=== PATIENT | female | born 1950 | race Caucasian/White ===

== ENCOUNTER 2018-07-08 03:06 | Outpatient (CLI) | payer MEDICARE, BC, SELFPAY ==
[2018-07-08 11:32] LABS: TSH (W/Ref FT4) 0.32 uIU/mL (0.358-3.74)
== END 2018-07-08 03:26 ==
DX: E03.9 Hypothyroidism, unspecified (principal)
CPT/HCPCS: 36415; 84439; 84443

== ENCOUNTER 2018-11-24 01:08 | Outpatient (CLI) | payer MEDICARE, BC, SELFPAY ==
--- NOTE | 2018-11-24 07:30 | DI.MAMMO_ITS ---
SYMPTOM/DIAGNOSIS: BREAST CANCER SCREENING, Z12.31 BILATERAL SCREENING MAMMOGRAM: Mammograms were interpreted according to the usual protocol including computer analysis with CAD system, tomosynthesis and C view imaging. Comparison is made with exams from 2009 through 2017. The breasts are composed of fatty density tissue, breast density category A. No suspicious masses or suspicious microcalcifications are seen. There has been no significant change. IMPRESSION: Category 1-A, negative mammogram. Yearly screening mammography is recommended. [facility] ASSESSMENT OF FINDINGS: Negative. Category 1. Patient will receive a letter notifying them of these results. BI-RAD category A. The breasts are almost entirely fatty.
== END 2018-11-24 01:28 ==
DX: Z12.31 Encounter for screening mammogram for malignant neoplasm of breast (principal)
CPT/HCPCS: 77063; 77067

== ENCOUNTER 2018-12-13 02:54 | Outpatient (CLI) | payer MEDICARE, BC, SELFPAY ==
[2018-12-13 12:25] LABS: ALT 42 U/L (12-78); AST 24 U/L (15-37); Alkaline Phosphatase 103 U/L (46-116); Anion Gap 7.2 mmol/L (3-11); BUN 16 mg/dL (7-18); Bilirubin, Total 0.6 mg/dL (0.2-1.0); CO2 31.8 mmol/L (21.0-32.0); CREATININE 0.95 mg/dL (0.55-1.02); Calcium 9.7 mg/dL (8.5-10.1); Chloride 103 mmol/L (98-107); Estimated GFR 58.85 (mL/min/1.73m2); Glucose 104 mg/dL (70-100); Potassium 4.4 mmol/L (3.5-5.1); Sodium 142 mmol/L (136-145); TSH (W/Ref FT4) 2.03 uIU/mL (0.358-3.74); Total Protein 6.8 g/dL (6.4-8.2)
== END 2018-12-13 03:14 ==
DX: E03.9 Hypothyroidism, unspecified (principal); K21.9 Gastro-esophageal reflux disease without esophagitis; F32.9 Major depressive disorder, single episode, unspecified; R29.818 Other symptoms and signs involving the nervous system; E53.8 Deficiency of other specified B group vitamins; H91.90 Unspecified hearing loss, unspecified ear; Q76.1 Klippel-Feil syndrome; G47.00 Insomnia, unspecified
CPT/HCPCS: 36415; 80053; 84443

== ENCOUNTER 2019-12-16 08:18 | Outpatient (CLI) | payer MEDICARE, BC, SELFPAY ==
[2019-12-16 11:14] LABS: ALT 36 U/L (14-59); AST 23 U/L (15-37); Albumin 3.9 g/dL (3.4-5.0); Alkaline Phosphatase 101 U/L (46-116); Anion Gap 9.4 mmol/L (3-11); BUN 14 mg/dL (7-18); Bilirubin, Total 0.7 mg/dL (0.2-1.0); CO2 29.6 mmol/L (21.0-32.0); CREATININE 0.94 mg/dL (0.55-1.02); Calcium 8.8 mg/dL (8.5-10.1); Calculated LDL 134 mg/dL (<100); Chloride 105 mmol/L (98-107); Cholesterol 203 mg/dL (<200); Glucose 111 mg/dL (74-106); HDL Cholesterol 52 mg/dL (40-60); Potassium 4.3 mmol/L (3.5-5.1); Sodium 144 mmol/L (136-145); TSH (W/Ref FT4) 4.19 uIU/mL (0.36-3.74); Total Protein 6.5 g/dL (6.4-8.2); Triglyceride 86 mg/dL (<150)
[2019-12-16 11:33] LABS: FREE T4 1.33 ng/dL (0.76-1.46)
== END 2019-12-16 08:38 ==
DX: I10 Essential (primary) hypertension (principal); E03.9 Hypothyroidism, unspecified; F32.9 Major depressive disorder, single episode, unspecified; K21.9 Gastro-esophageal reflux disease without esophagitis; K90.0 Celiac disease; R63.8 Other symptoms and signs concerning food and fluid intake
CPT/HCPCS: 36415; 80053; 80061; 84439; 84443

== ENCOUNTER → 2020-05-25 08:23 | Outpatient (BNVA) | payer MEDICARE, BC, SELFPAY | PROVIDERS: Visit Provider Physical Therapy Assistant | DX: Z12.11 Encounter for screening for malignant neoplasm of colon (principal); Z80.0 Family history of malignant neoplasm of digestive organs ==

== ENCOUNTER 2020-09-11 09:10 | Outpatient (CLI) | payer MEDICARE, BC, SELFPAY ==
[2020-09-15 16:08] LABS: Patient Race White; SARS-CoV-2 RNA Undetected (Undetected); SARS-CoV-2 Specimen Source Nasal
== END 2020-09-11 09:30 ==
DX: Z20.828 Contact with and (suspected) exposure to other viral communicable diseases (principal)
CPT/HCPCS: U0003

== ENCOUNTER 2021-02-01 03:59 | Outpatient (CLI) | payer MEDICARE, BC, SELFPAY ==
--- NOTE | 2021-02-01 06:45 | DI.MAMMO_ITS ---
EXAM: MG MAMMO SCREENING CLINICAL HISTORY: screening,Z12.39 TECHNIQUE: Mammograms were interpreted according to the usual protocol including computer analysis w [email or web address] system, tomosynthesis and C-view imaging. COMPARISON: FINDINGS: The breasts are of moderate density with fairly symmetrical distribution of fibroglandular tissue. N o dominant mass or clumped microcalcification is identified in either breast. The current examinatio n is compared with previous examinations including November 2018 and there has been no gross interval change in appearance in comparison with the prior studies. IMPRESSION: No specific evidence of malignancy at this time. Routine screening examinations are suggested at yea rly intervals in this age group according to the ACS ACR guidelines. BI-RADS Category 1 - Negative Breast Density - Category B - Scattered areas of fibroglandular density
== END 2021-02-01 04:19 ==
DX: Z12.31 Encounter for screening mammogram for malignant neoplasm of breast (principal)
CPT/HCPCS: 77063; 77067

== ENCOUNTER 2021-05-30 12:58 | Outpatient (REF) | payer MEDICARE, BC, SELFPAY ==
--- NOTE | 2021-05-30 08:15 | PAPFT_PTH ---
PATIENT: Sandrita San LOC: [facility] U#:[id number] AGE/SX: 70/F ROOM: RE05/30/[address]: Caitlyn Sierra APRN : 1950 BED: DIS: 05/30/2021 SPEC #: [id number] RECD: 05/30/21 13:02 STATUS: WILLIE ASIF #: [id number] VERÓNICA: 05/30/21 08:[address]: Caitlyn Sierra DEPT: [facility] Cytology RECD BY: Micheline Vuong Tissues: 1 - CX/ENDOCX FOR PAP SMEARS Procedures: PAP THIN PREP/UVM Screening HPV DNA PROBE Comments: [id number]
== END 2021-05-30 12:59 | disposition home or self-care (01) ==
LOC: LBN 12:58
DX: Z12.4 Encounter for screening for malignant neoplasm of cervix (principal); Z11.51 Encounter for screening for human papillomavirus (HPV); Z01.419 Encounter for gynecological examination (general) (routine) without abnormal findings
CPT/HCPCS: 88142; 87624

== ENCOUNTER 2021-08-07 02:38 | Outpatient (CLI) | payer MEDICARE, BC, SELFPAY ==
[2021-08-07 12:16] LABS: HCT 41.2 % (36.0-46.0); HGB 13.8 g/dL (11.2-15.7); MCH 31.8 pg (27.0-33.0); MCHC 33.5 % (32.0-36.0); MCV 94.9 fL (80-95); MPV 10.4 fL (8.0-11.0); Platelet Count 204 10^3/uL (130-400); RBC 4.34 10^6/uL (3.93-5.22); RDW 12.1 % (11.7-14.6); RDW-SD 42.2 fL; WBC 5.19 10^3/uL (4.4-10.8)
[2021-08-07 12:34] LABS: ALT 48 U/L (14-59); AST 23 U/L (15-37); Albumin 4.2 g/dL (3.4-5.0); Alkaline Phosphatase 94 U/L (46-116); Anion Gap 6.1 mmol/L (3-11); BUN 18 mg/dL (7-18); Bilirubin, Total 0.7 mg/dL (0.2-1.0); CO2 29.9 mmol/L (21.0-32.0); Calcium 9.1 mg/dL (8.5-10.1); Chloride 106 mmol/L (98-107); Estimated GFR 55.14 (mL/min/1.73m2); Glucose 101 mg/dL (74-106); Potassium 4.4 mmol/L (3.5-5.1); Sodium 142 mmol/L (136-145); TSH (W/Ref FT4) 6.09 uIU/mL (0.36-3.74); Total Protein 6.9 g/dL (6.4-8.2)
[2021-08-07 12:52] LABS: FREE T4 1.08 ng/dL (0.76-1.46)
== END 2021-08-07 02:39 | disposition home or self-care (01) ==
LOC: LOS 02:38
DX: D50.9 Iron deficiency anemia, unspecified (principal); E03.9 Hypothyroidism, unspecified; G47.00 Insomnia, unspecified
CPT/HCPCS: 36415; 80053; 85027; 84439; 84443

== ENCOUNTER → 2022-05-19 00:04 | Outpatient (CLI) | payer MEDICARE, BC, SELFPAY ==
--- OUTSIDE RECORDS SUMMARY | 2022-05-19 00:13 | XMS_ITS | Encounter Summary ---
:1950 Author Organization [facility] [place] [address] Care Team Providers Name Role Phone Caitlyn Sierra APRN Primary Care Provider Reason for Visit Reason Comments Follow-up Encounter Details Date Type Department Care Team Description 07/29/2019 Office Visit Gynecology Oncology Angelica Joaquin Ova malgorzata low malignant at [facility] Soto potential tumor [facility] [address] [place], [place] [phone] Social History Tobacco Use Types Packs/Day Years Used Date Never Smoker Smokeless Tobacco: Never Used Alcohol Use Standard Drinks/Week Comments Yes 0 (1 standard drink = 0.6 oz pure alcoho l) rarely Alcohol Habits Answer Date Recorded How often do you have a drink containing alcohol? Not asked How many drinks containing alcohol do you have on a typical Not asked day when you are drinking? How often do you have six or more drinks on one occasion? No t asked Comment: rarely 02/20/2015 Sex Assigned at Date Recorded Not on file documented as of this encounter Last Filed Vital Signs Vital Sign Reading Time Taken Comments Blood Pressure 118/70 07/29/2019 11:40 AM EDT Pulse 67 07/29/2019 11:40 AM EDT Temperature - - Respiratory Rate 16 07/29/2019 11:40 AM EDT Oxygen Saturation 98% 07/29/2019 11:40 AM EDT Inhaled Oxygen Concentration - - Weight 79.9 kg (176 lb 2.4 oz) 07/29/2019 11:40 AM EDT Height 144.8 cm (4' 9.01) 07/29/2019 11:40 AM EDT Body Mass Index 38.11 07/29/2019 11:40 AM EDT documented in this encounter Progress Notes Angelica Joaquin, TRAUMA NURSE - 07/29/2019 11:30 AM EDT Division [place] [address] Reason For Visit: Post Treatment Surveillance Exam History of Present Illness: Sandrita San is a 65 y.o. woman who presents today for surveillance exam. 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 Jerez on 01/2015. Cervix and uterus were not removed. Pap and HR HPV 11/2016 were negative/normal. Pap testing in no longer indicated. Interim Health: Notes her pelvis aches when she goes from a sitting to standing position or when shestands for too long. Not sure if it is bone or muscle. Initially noticed it when she was getting in and out of the kayak. Reports once she starts moving/walking it will resolve. She does not have any abdominal or pelvic pain. Otherwise no new medical issues, surgeries or hospitalizations. ROS: Bowel function- Daily BM. Always a struggle to manage d/t celiac and other food sensitivities. Bloating and gas off/on r/t bowel function/celiac disease, no changes Bladder function: very occasionally she will notice a decrease sense of urge, but overall initiatingand emptying fine. No frequency, urgency or dysuria Rare incontinence. Energy level: Ok overall. No Vaginal bleeding or discharge Long hx of L ankle edema- wearing compression stockings, which does help. ?? Weight is up 5 lbs Appetite is good No SOB, cough or chest pain Sexual function: No changes or concerns. No longer sexually active, d/t 's medical issues. ?? Advanced directives- Sandrita does have a copy at home. Health Habits: Tobacco: nonsmoker Occasional social ETOH. Exercise: walking, [employer], hoping to start a senior exercise class Health screening: Mammogram up to date, 11/2018. 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 ?? Patient Active Problem List?? Diagnosis?? Code? Vitamin B 12 deficiency?? E53.8? Facial droop?? R29.810? Rosacea?? L71.9? Hypothyroidism?? E03.9? Celiac disease?? K90.0? Hearing loss?? H91.90? Depression?? F32.9? 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 Heart murmur?? R01.1? DIFFICULT AIRWAY?? T88.4XXA? 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 Past Surgical History Past Surgical History?? Procedure?? Laterality?? Date? Carpal tunnel release?? left wrist? section?? 1983? Tonsillectomy? Finger trigger release? Cochlear implant? Cochlear implant?? Right?? 1995?? umbrella prosthesis from the oval window to the tympanic membrane and precludes MRI? Knee arthroscopy?? Right? Adenoidectomy? Pro lap, rmv adnexal structure?? N/A?? 02/23/2015?? LAPAROSCOPY, REMOVAL OF ADNEXA performed by Doretha Jerez MD at [facility] OR? Pro removal of ovary/tube(s)?? Bilateral?? 02/23/2015?? @SALPINGO-OOPHORECTOMY, UNILATERAL OR LUZMARIA performed by Doretha Jerez MD at [facility] OR? Pro laryngoscopy, direct, dx, op microscop?? N/A?? 02/23/2015?? LARYNGOSCOPY, WITH MICROSCOPE performed by Thomas Khoury MD at [facility] OR?? Allergies?? Allergen?? Reactions? Amoxicillin-Pot Clavulanate?? Diarrhea? Aspirin?? Abdominal pain? Gluten?? Diarrhea and Rash? Ibuprofen?? Other (See Comments)?? Abdominal pain?? Current Outpatient Prescriptions on File Prior to Visit?? Medication?? Sig?? Dispense?? Refill? omeprazole (PRILOSEC) 40 mg Capsule, Delayed Release(E.C.)?? Take 1 capsule by mouth daily.? levothyroxine (SYNTHROID) 150 mcg Tablet?? Take 150 mcg by mouth as needed. Thursday and Thursday? metroNIDAZOLE (METROGEL) 1 % Gel?? Apply topically daily.? pyridoxine (B-6) 100 mg Tablet?? Take 100 mg by mouth daily.? cyanocobalamin 1,000 mcg Tablet?? Take 1,000 mcg by mouth daily.? folic acid (FOLVITE) 400 mcg Tablet?? Take 400 mcg by mouth daily.? dapsone (ACZONE) 25 mg tablet?? 50mg, PO, Once daily and PRN?? No current facility-administered medications on file prior to visit. ?? Vital Signs: ?? Visit Vitals? BP?? 122/69? Pulse?? 65? Wt?? 74.6 kg (164 lb 7.4 oz)? SpO2?? 100%? BMI?? 35.93 kg/m2?? PHYSICAL EXAM: Gen: Pleasant, NAD, Alert, appears well, R facial palsy HEENT: No clavicular adenopathy or appreciable thyromegaly ?? Lungs: clear to auscultation Cor: heart RRR with systolic murmur Abdomen: soft, non- distended, non-tender, no appreciable masses or inguinal adenopathy Pelvic exam: atrophic external female genitalia; vulva, urethral meatus, and perineum are without lesions. Speculum exam: Vagina and cervix with atrophic changes, no visible lesions. Bimanual exam: exam is limited secondary to body habitus, no appreciable uterine or pelvic masses, nodularity or tenderness. Adnexae surgically absent. Rectovaginal exam: No appreciable masses or tenderness. ASSESSMENT/PLAN: Sandrita San is a 65 y.o. 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 She has no evidence of recurrent disease. We reviewed signs and symptoms of recurrent disease. Musculoskeletal pain: unlikely this represents recurrent cancer, recommended that she f/u with her PCP, consider physical therapy and weight loss. She will RTC per SGO guidelines q 6 months. She will RTC sooner prn with questions/concerns. Angelica Joaquin APRN documented in this encounter Plan of Treatment Not on filedocumented as of this encounter Visit Diagnoses Diagnosis Ovarian low malignant potential tumor Neoplasm of unspecified nature of other genitourinary organs documented in this encounter Care Teams Spare Person Relationship Specialty Start Date End Date Caitlyn Sierra APRN PCP - General Family Medicine 07/20/[address] [place] [address] documented as of this encounter
--- OUTSIDE RECORDS SUMMARY | 2022-05-19 00:13 | XMS_ITS | Clinical Summary ---
:1950 Author Organization [facility] [place] [address] Care Team Providers Name Role Phone Caitlyn Sierra APRN Primary Care Provider Allergies Active Allergy Reactions Severity Noted Date Comments Amoxicillin-Pot Clavulanate Diarrhea Aspirin Abdominal pain Gluten Diarrhea, Rash 01/25/2015 Ibuprofen Other (See Comments) Abdomin al pain Medications Medication Sig Dispensed Refills Start Date End Date Status dapsone (ACZONE) 25 mg 50mg, PO, Once 0 09/02/2006 Active tablet daily and PRN metroNIDAZOLE Apply topically 0 Active (METROGEL) 1 % Gel daily. pyridoxine (B-6) 100 mg Take 100 mg by 0 Active Tablet mouth daily. cyanocobalamin 1,000 Take 1,000 mcg by 0 Active mcg Tablet mouth daily. folic acid (FOLVITE) Take 400 mcg by 0 Active 400 mcg Tablet mouth daily. levothyroxine Take 137 mcg by 2 04/08/2017 Active (SYNTHROID) 137 mcg mouth daily. Tablet omeprazole (PRILOSEC) TAKE ONE CAPSULE 3 12/21/2018 Active 20 mg Capsule, Delayed BY MOUTH EVERY Release(E.C.) DAY Active Problems Problem Noted Date Ovarian low malignant potential tumor 09/07/2015 DIFFICULT AIRWAY 02/06/2015 Overview: Unable to mask ventilate with one or two hands, even with an oral airway. Able to ventilate with Air-q(brand) LMA 3.5 or Unique (brand) LMA 3, but unable to pass tube over fiber-optic scope. Grade 4 vie w with glidescope (video laryngoscope). Poor view (grade 4) with fiber optic bronchoscope without manipulation/angling of FOB tip under epiglottis. Glottic opening is narrow and mouth opening is small. Consider spinal anesthetic when appropri ate, awake intubation or ENT consult for intubation. 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 Heart murmur Overview: reports a normal ECHO Immunizations Name Administration Dates Next Due Td, adult 06/02/1999 Family History Medical History Relation Comments Coronary Artery Disease Brother 1 Hyperlipidemia Brother 2 Depression Brother 3 Coronary Artery Disease Father Depression Father Hyperlipidemia Father Hypertension Father Colorectal Cancer Mother Depression Mother Depression Sister Allergies Neg Hx Anesthesia Reaction Neg Hx Asthma Neg Hx Breast Cancer Neg Hx Cerebrovascular Accident Neg Hx Osteoporosis Neg Hx Ovarian Cancer Neg Hx Thyroid Disease Neg Hx Type 2 Diabetes Neg Hx Relation Status Comments Brother 1 Brother 2 Brother 3 Father Mother Sister Social History Tobacco Use Types Packs/Day Years [...] Assigned at Date Recorded Not on file Last Filed Vital Signs Vital Sign Reading Time Taken Comments Blood Pressure 118/70 07/29/2019 11:40 AM EDT Pulse 67 07/29/2019 11:40 AM EDT Temperature 36.6 ??C (97.8 ??F) 01/26/2019 2:46 PM EDT Respiratory Rate 16 07/29/2019 11:40 AM EDT Oxygen Saturation 98% 07/29/2019 11:40 AM EDT Inhaled Oxygen Concentration - - Weight 79.9 kg (176 lb 2.4 oz) 07/29/2019 11:40 AM EDT Height 144.8 cm (4' 9.01) 07/29/2019 11:40 AM EDT Body Mass Index 38.11 07/29/2019 11:40 AM EDT Plan of Treatment Health Maintenance Due Date Last Done Comments Covid-19 Vaccine (#1) 1957 Hepatitis C Screening 1970 Lipid Screening 1970 Tdap adult 1971 Breast Cancer Share Decision Needed 1992 Diabetes Screening (HgbA1C or Glucose) 1992 Colonoscopy 1997 Breast Cancer screening 2002 Zoster vaccine (1 of 2) 2002 Advance Directive 2007 Tetanus vaccine 06/02/2009 06/02/1999 Bone Density Scan 2017 Pneumoccocal Vaccine: 65+ (1 - PCV) 2017 Influenza (Flu) vaccine (1 of 1 - Influenza standard 07/03/2022 series) Insurance Payer Benefit Plan / Subscriber ID Effective Phone Address T ype Group Dates MEDICARE MEDICARE PART [id number] 2017-Prese [phone] [place] [address] [employer] [id number] 2018-Prese [address] [place] [address] [place] [address] Advance Directives Latest Code Status on File Code Status Date Activated Date Inactivated Comments Full Code 02/23/2015 10:44 AM 02/23/2015 6:36 PM Full Code 02/23/2015 7:45 AM 02/23/2015 10:44 AM Full Code 02/06/2015 8:50 AM 02/06/2015 2:54 PM Care Teams Wildlife Conservation Officer Relationship Specialty Start Date End Date Caitlyn Sierra, SECURITY OPERATIONS ENGINEER PCP - General Family Medicine 07/20/[address] [place] [address]
--- OUTSIDE RECORDS SUMMARY | 2022-05-19 00:13 | XMS_ITS | Encounter Summary ---
:1950 Author Organization [facility] [place] [address] Care Team Providers Name Role Phone Sarita Valencia MD Primary Care Provider Encounter Details Date Type Department Care Team Description 08/10/2015 External Results [place] [address] Social History Tobacco Use Types Packs/Day Years [...] on file documented as of this encounter Plan of Treatment Not on filedocumented as of this encounter Visit Diagnoses Not on filedocumented in this encounter Care Teams Cotton Factor Relationship Specialty Start Date End Date Sarita Valencia MD PCP - General 09/24/10 07/19/18 [address] [place], [place] [address] documented as of this encounter
--- OUTSIDE RECORDS SUMMARY | 2022-05-19 00:13 | XMS_ITS | Encounter Summary ---
:1950 Author Organization [facility] [place] [address] Care Team Providers Name Role Phone Sarita Valencia MD Primary Care Provider Reason for Visit Reason Comments Follow-up Encounter Details Date Type Department Care Team Description 03/25/2016 Office Visit Gynecology Oncology Angelica Joaquin Ova malgorzata low malignant at [facility] M, STONE CARRIAGE OPERATOR potential tumor [facility] [address] [place], [place] [phone] [phone] Social History Tobacco Use Types Packs/Day Years [...] Sign Reading Time Taken Comments Blood Pressure 122/69 03/25/2016 8:12 AM EDT Pulse 65 03/25/2016 8:12 AM EDT Temperature - - Respiratory Rate - - Oxygen Saturation 100% 03/25/2016 8:12 AM EDT Inhaled Oxygen Concentration - - Weight 74.6 kg (164 lb 7.4 oz) 03/25/2016 8:12 AM EDT Height - - Body Mass Index 35.93 02/23/2015 7:33 AM EDT documented in this encounter Progress Notes Angelica Joaquin, STONE CARRIAGE OPERATOR - 03/25/2016 9:06 AM EDT Division of [place] [address] Reason For Visit: Post Treatment Surveillance Exam History of Present Illness: Sandrita San is a 65 y.o. woman who presents today for surveillance exam. 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 Jerez on 01/2015. Interim Health: Feeling fine. No new medical issues, surgeries or hospitalizations. She does note some changes in bowel function-BM can vary d/t celiac disease. BM are daily, though lately have been tending more toward constipation. No abdominal or pelvic pain. Occasional bloating r/t celiac disease. ROS: No Fever, chills, nausea, vomiting, diarrhea No bladder concerns or changes. Energy level: stable, tires more easily No Vaginal bleeding or discharge Long hx of L ankle edema, worse with weather and sitting, typically improves with elevation. ?? Weight is up a few pounds. Reports appetite is ok No SOB, cough or chest pain Sexual function: No changes or concerns. No longer sexually active, d/t 's medical issues. ?? Mood is good. Health Habits: Tobacco: nonsmoker ETOH: Occasional social Exercise: tries to walk 2-3 days a week typically 20-30 minutes Health Maintenance: Mammogram: Done locally 09/05/15. Colonoscopy: 12/2014, repeat 3 years Social History: Lives with her , he is doing better. 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 ?? Patient Active Problem List?? Diagnosis?? Code? Vitamin B 12 deficiency?? E53.8? Facial droop?? R29.810? Rosacea?? L71.9? Hypothyroidism?? E03.9? Celiac disease?? K90.0? Hearing loss?? H91.90? Depression?? F32.9? 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 Heart murmur?? R01.1? DIFFICULT AIRWAY?? T88.4XXA? 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 Past Surgical History Past Surgical History?? Procedure?? Laterality?? Date? Carpal tunnel release?? left wrist? section?? 1984? Tonsillectomy? Finger trigger release? Cochlear implant? Cochlear implant?? Right?? 1995?? umbrella prosthesis from the oval window to the tympanic membrane and precludes MRI? Knee arthroscopy?? Right? Adenoidectomy? Pro lap, rmv adnexal structure?? N/A?? 02/23/2015?? LAPAROSCOPY, REMOVAL OF ADNEXA performed by Doretha Jerez MD at [facility] OR? Pro removal of ovary/tube(s)?? Bilateral?? 02/23/2015?? @SALPINGO-OOPHORECTOMY, UNILATERAL OR LUZMARIA performed by Doretha Jerez MD at [facility] OR? Pro laryngoscopy, direct, dx, op microscop?? N/A?? 02/23/2015?? LARYNGOSCOPY, WITH MICROSCOPE performed by Thomas Khoury MD at [facility] OR?? Allergies?? Allergen?? Reactions? Amoxicillin-Pot Clavulanate?? Diarrhea? [...] cervix with atrophic changes, no visible lesions. Bimanual/rectovaginal exam: No appreciable uterine or pelvic masses, nodularity or tenderness. Adnexae surgically absent. Rectovaginal exam: good tone, no appreciable masses or tenderness. ASSESSMENT/PLAN: Sandrita San is a 65 y.o. 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 She has no evidence of recurrent disease. We reviewed signs and symptoms of recurrent disease. She will RTC in 6 months, sooner prn with questions/concerns. Constipation: Encouraged increase fiber, hydration and activity. ?? Angelica Joaquin APRN documented in this encounter Plan of Treatment Not on filedocumented as of this encounter Visit Diagnoses Diagnosis Ovarian low malignant potential tumor Neoplasm of unspecified nature of other genitourinary organs documented in this encounter Care Teams Contact Center Manager Relationship Specialty Start Date End Date Sarita Valencia MD PCP - General 09/24/10 07/19/18 [address] [place] [address] documented as of this encounter
--- OUTSIDE RECORDS SUMMARY | 2022-05-19 00:13 | XMS_ITS | Encounter Summary ---
:1950 Author Organization [facility] [place] [address] Care Team Providers Name Role Phone Caitlyn Sierra APRN Primary Care Provider Encounter Details Date Type Department Care Team Description 03/02/2020 Telephone Gynecology Oncology at [facility] Angelica Joaquin, [facility] [place] [address] [facility] [phone] [place], [place] [address] (Wo rk) Social History Tobacco Use Types Packs/Day Years [...] on file documented as of this encounter Miscellaneous Notes Telephone Encounter - Angelica Joaquin APRN - 03/02/2020 10:15 AM EDT TC to patient to notifiy that I will be leaving PRECISION MACHINIST/ONC and to discuss transition of care. 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 Jerez on 01/2015. Cervix and uterus were not removed Sandrita is approaching the 5 year don of her cancer dx, she would like to have one last visit with Dr. Jerez before transitioning to local [facility]. Will plan to f/u when non-emergent/non-urgent visits can be re- scheduled. She understands that she should call/RTC if she has any urgent is sues/concerns. Angelica Joaquin APRN documented in this encounter Plan of Treatment Not on filedocumented as of this encounter Visit Diagnoses Not on filedocumented in this encounter Care Teams Traveling Construction Superintendent Relationship Specialty Start Date End Date Caitlyn Sierra APRN PCP - General Family Medicine 07/20/[address] [place] [address] [address] [place] [address] documented as of this encounter
--- OUTSIDE RECORDS SUMMARY | 2022-05-19 00:13 | XMS_ITS | Encounter Summary ---
:1950 Author Organization [facility] [place] [address] Care Team Providers Name Role Phone Caitlyn Sierra APRN Primary Care Provider Encounter Details Date Type Department Care Team Description 10/12/[address] [facility] [place] [address] Social History Tobacco Use Types Packs/Day [...] this encounter Miscellaneous Notes Telephone Encounter - Bin Oropeza - 10/12/2020 3:27 PM EST Placed outgoing phone call to patient in order to schedule a procedure. Phone Call Outcome: Left voicemail asking for return call. This was the 1st attempt documented in this encounter Plan of Treatment Not on filedocumented as of this encounter Visit Diagnoses Not on filedocumented in this encounter Care Teams Plate Driller Relationship Specialty Start Date End Date Caitlyn Sierra APRN PCP - General Family Medicine 07/20/[address] [place] [address] documented as of this encounter
--- OUTSIDE RECORDS SUMMARY | 2022-05-19 00:13 | XMS_ITS | Encounter Summary ---
:1950 Author Organization [facility] [place] [address] Care Team Providers Name Role Phone Caitlyn Sierra APRN Primary Care Provider Encounter Details Date Type Department Care Team Description 10/19/2020 Telephone Gastroenterology at [facility] [place] [address] Social History Tobacco Use Types Packs/Day [...] Notes Telephone Encounter - Bin Oropeza - 10/19/2020 3:11 PM EST Placed outgoing phone call to patient in order to schedule a procedure. Phone Call Outcome: Spoke with patient, who expressed concerns regarding as a system, and a previous bad experience. I directed her to speak to her PCP about these concerns to asses if it is appropriate to refer to a different system. She agreed. Will obtain new referral if she decides to come to . This was the 2nd attempt documented in this encounter Plan of Treatment Not on filedocumented as of this encounter Visit Diagnoses Not on filedocumented in this encounter Care Teams Multifocal Lens Assembler Relationship Specialty Start Date End Date Caitlyn Sierra, PROPERTY LOSS INSURANCE CLAIM ADJUSTER PCP - General Family Medicine 07/20/[address] [place] [address] documented as of this encounter
--- OUTSIDE RECORDS SUMMARY | 2022-05-19 00:13 | XMS_ITS | Encounter Summary ---
:1950 Author Organization [facility] [address] Care Team Providers Name Role Phone Caitlyn Sierra APRN Primary Care Provider Reason for Visit Reason Comments Established 6M follow up Encounter Details Date Type Department Care Team Description 01/26/2019 Office Visit Gynecology Oncology Angelica Joaquin Ova malgorzata low malignant [place] [facility] [place] potential tumor [facility] [address], [place] [phone] Social History Tobacco Use Types Packs/Day Years [...] Sign Reading Time Taken Comments Blood Pressure 116/53 01/26/2019 2:46 PM EDT Pulse 68 01/26/2019 2:46 PM EDT Temperature 36.6 ??C (97.8 ??F) 01/26/2019 2:46 PM EDT Respiratory Rate 16 01/26/2019 2:46 PM EDT Oxygen Saturation 99% 01/26/2019 2:46 PM EDT Inhaled Oxygen Concentration - - Weight 77.6 kg (171 lb) 01/26/2019 2:46 PM EDT Height 144.8 cm (4' 9) 01/26/2019 2:46 PM Patient repo rted EDT Body Mass Index 37 01/26/2019 2:46 PM EDT documented in this encounter Progress Notes Angelica Joaquin, RECYCLING TECHNICIAN - 01/26/2019 2:30 PM EDT Division [place] [address] Reason For Visit: Post Treatment Surveillance Exam [...] testing in no longer indicated. Interim Health: Feeling ok overall. Significant GERD sx recently, seen by PCP, now on omeprazole 40 mg daily, sx have improved. Otherwise no new medical issues, surgeries or hospitalizations. No CHILD & ADOLESCENT PSYCHIATRIST concerns/complaints. ROS: No Pelvic pain. Abdominal pain while her GERD was flaring, which has since improved. Bloating off/onr/t bowel function/celiac disease, no changes Bowel function- Daily BM, better. More formed. Managing celiac. Bladder function: no concern. occasional urge incontinence. Energy level: Ok overall. No Vaginal bleeding or discharge Long hx of L ankle edema- No changes. Does improve with elevation. ?? Weight is stable Reports appetite is good No SOB, cough or chest pain Sexual function: No changes or concerns. No longer sexually active, d/t 's medical issues. ?? Advanced directives- Sandrita does have a copy at home. Health Habits: Tobacco: nonsmoker Occasional social ETOH. Exercise: trying to walk more, started [employer] Health screening: Mammogram up to date, 11/2018. 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 ?? Patient Active Problem List?? Diagnosis?? Code? [...] ADNEXA performed by Doretha Jerez MD at [facility] OR? Pro removal of ovary/tube(s)?? Bilateral?? 02/23/2015?? @SALPINGO-OOPHORECTOMY, UNILATERAL OR LUZMARIA performed by Doretha Jerez MD at [facility] OR? Pro laryngoscopy, direct, dx, op microscop?? N/A?? 02/23/2015?? LARYNGOSCOPY, WITH MICROSCOPE performed by Thomas Khoury MD at [facility] OR?? Allergies?? Allergen?? Reactions? Amoxicillin-Pot Clavulanate?? Diarrhea? [...] atrophic changes, no visible lesions. Bimanual exam: No appreciable uterine or pelvic masses, nodularity or tenderness. Adnexae surgically absent. Rectovaginal exam: No appreciable masses or tenderness. ASSESSMENT/PLAN: Sandrita San is a 65 y.o. 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 She has no evidence of recurrent disease. We reviewed signs and symptoms of recurrent disease. She will RTC per SGO guidelines q 6 months. She will RTC sooner prn with questions/concerns. Angelica Joaquin APRN documented in this encounter Plan of Treatment Not on filedocumented as of this encounter Visit Diagnoses Diagnosis Ovarian low malignant potential tumor Neoplasm of unspecified nature of other genitourinary organs documented in this encounter Care Teams Plastic Process Technician Relationship Specialty Start Date End Date Caitlyn Sierra APRN PCP - General Family Medicine 07/20/[address] [place] [address] documented as of this encounter
--- OUTSIDE RECORDS SUMMARY | 2022-05-19 00:13 | XMS_ITS | Encounter Summary ---
:1950 Author Organization [facility] [place] [address] Care Team Providers Name Role Phone Sarita Valencia MD Primary Care Provider Reason for Visit Reason Comments Established 6 mth fu Encounter Details Date Type Department Care Team Description 11/26/2016 Office Visit Gynecology Oncology Angelica Joaquin Ova malgorzata low malignant [place] [facility] [place], MANAGER TRANSPORTATION potential tumor [facility] [address], [place] [phone] Social History Tobacco Use Types Packs/Day Years [...] Sign Reading Time Taken Comments Blood Pressure 133/64 11/26/2016 2:23 PM EST Pulse 70 11/26/2016 2:23 PM EST Temperature 36.8 ??C (98.2 ??F) 11/26/2016 2:23 PM EST Respiratory Rate 14 11/26/2016 2:23 PM EST Oxygen Saturation 100% 11/26/2016 2:23 PM EST Inhaled Oxygen Concentration - - Weight 74.7 kg (164 lb 10.9 oz) 11/26/2016 2:23 PM EST Height 144.8 cm (4' 9) 11/26/2016 2:23 PM EST Body Mass Index 35.64 11/26/2016 2:23 PM EST documented in this encounter Progress Notes Angelica Joaquin, LUIS - 11/26/2016 2:30 PM EST Division [place] [address] Reason For Visit: Post Treatment Surveillance Exam History of Present Illness: Sandrita San is a 65 y.o. woman who presents today for surveillance exam. 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 Jerez on 01/2015. Cervix and uterus were not removed. She is overdue for pap. Interim Health: Feeling fine. No new medical issues, surgeries or hospitalizations. No questions/concerns today. ROS: No Fever, chills, nausea, vomiting, diarrhea No Pelvic or abdominal pain. Bloating off/on r/t bowel function/celiac disease. Bowel function- Daily BM. Celiac disease is currently stable. No bladder concerns or changes. Energy level tires more easily. Morning is better. She is sleeping better. Though considering sleep study and CPAP for her apnea. No Vaginal bleeding or discharge Long hx of L ankle edema, better in the winter. Improves with elevation. ?? Weight is stable Reports appetite is ok No SOB, cough or chest pain Sexual function: No changes or concerns. No longer sexually active, d/t 's medical issues. ?? Mood is good. Advanced directives- Sandrita does have a copy at home, she will bring a copy with her at the time of her next appointment. Health Habits: Tobacco: nonsmoker Occasional social ETOH. Exercise: nothing formal lately due to weather. Health Maintenance: Mammogram: Done locally 09/2015, overdue will plan to schedule. Colonoscopy: 12/2014, repeat 3 years Social History: Lives with her , he has bi-polar d/o and has been stable. 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 ?? Patient Active Problem [...] performed by Doretha Jerez MD at [facility] OR? Pro removal of ovary/tube(s)?? Bilateral?? 02/23/2015?? @SALPINGO-OOPHORECTOMY, UNILATERAL OR LUZMARIA performed by Doretha Jerez MD at [facility] OR? Pro laryngoscopy, direct, dx, op microscop?? N/A?? 02/23/2015?? LARYNGOSCOPY, WITH MICROSCOPE performed by Thomas Khoury MD at [facility] OR?? Allergies?? Allergen?? Reactions? Amoxicillin-Pot Clavulanate?? [...] NAD, Alert, appears well, R facial palsy (which occurred as a result of ear surgery) HEENT: No clavicular adenopathy or appreciable thyromegaly ?? Lungs: clear to auscultation Cor: heart RRR with systolic murmur Abdomen: soft, non- distended, non-tender, no appreciable masses or inguinal adenopathy Pelvic exam: atrophic external female genitalia; vulva, urethral meatus, and perineum are without lesions. Speculum exam: Vagina and cervix with atrophic changes, no visible lesions. Pap collected. Bimanual exam: No appreciable uterine or pelvic masses, nodularity or tenderness. Adnexae surgically absent. Rectovaginal exam: no appreciable masses or tenderness. ASSESSMENT/PLAN: Sandrita San is a 65 y.o. 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 She has no evidence of recurrent disease. We reviewed signs and symptoms of recurrent disease. Reviewed pap guidelines. Pap/HPV testing done today, pending normal/negative, she will no longerneed further pap testing. Discussed with Dr. Jerez who recommended q 6 month visits until she is 4yrs post treatment and then annually thereafter. She will RTC in 6 months, sooner prn with questions/concerns. Angelica Joaquin APRN documented in this encounter Plan of Treatment Not on filedocumented as of this encounter Procedures Procedure Name Priority Date/Time Associated Comments Diagnosis HPV Routine 11/26/2016 3:41 PM Results f or this EST procedure are i n the results section. RN CLINICAL RESEARCH CYTOLOGY Routine 11/26/2016 3:41 PM Results f or this INTERPRETATION EST procedure are in the results section. RN CLINICAL RESEARCH CYTOLOGY FINAL Routine 11/26/2016 3:41 PM Res ults for this REPORT EST procedure are i n the results section. CYTOPATHOLOGY Routine 11/26/2016 3:41 PM Ovarian low Results for this GYNECOLOGICAL EST malignant procedure are in potential tumor the results section. documented in this encounter Results Junior Web Designer Cytology Final Report (11/26/2016 3:41 PM EST) Component Value Ref Test Analysis Performed At [facility] Range Method Time Signature Junior Web Designer Cytology [id number] ?Location: [address] [place] [address] Final Report [place] The signing pathologist has (i) examined the relevant preparation(s) for the [facility] specimen(s) and (ii) rendered or confirmed the diagnosis(es) . HOSPITAL [facility] . ? Junior Web Designer Final DIAGNOSIS Normal Negative for Intraepithelial Lesion or Malignancy (NILM). For consensus guidelines for the management of c ervical cancer screening test results, please see: ?? http://www.asccp.org/guidelines . Electronically signed by: ??Juan LYLES(ASCP), Joelle Bangura Verified: ??12/03/2016 ?Cable Strander HPV RESULTS HPV16 (Result) ?Negative HPV18 (Result) ?Negative HPVOHR (Result) ? Negative HPV (Interpretation) ?See Below HPV (Interpretation) Text: NEGATIVE for high-risk HPV *. *Testing negative for high risk HPV means that the specimen is negative for the following 14 types tested: types 16, 18, 31, 33, 35 , 39, 45, 51, 52, 56, 58, 59, 66, and 68. The test is not intended to detect low risk HPV types. Mustapha chloe HPV test Specimen: HPV Testing - Cytology Liquid Based Prep The Mustapha chloe ? HPV ariella t was validated, performed and results reported through the Laboratory for Clinical Gen omics and Advanced Technology (CGAT) at [facility]. ? - Anurag Almanza, PhD, [facility], Director-CGAT STATEMENT OF ADEQUACY Specimen submitted is satisfactory. Endocervical component present. CLINICAL INFORMATION HPV Option: ?Concurrent HPV and Pap Preparation: ? Liquid based Pap Specimen Source: ? Cervical/Endocervical LMP: ? n/a Hormones?: ? No Hysterectomy?: ? No ?: ? No ?: ? No I.U.D.?: ? No Pelvic Radiation: ?No Prior RN CLINICAL RESEARCH Therapy?: ?Surgery (comment) Hist Abnl Pap/Biopsy?: ?? No Hist of HPV Vaccine?: ?No Hist of Smoking?: ?No Hist of ANDREW exposure?: ?? No ICD Diagnosis: ? Z12.4 Encounter for screening for malignant neoplasm of cervix Clinical Data, Significant Therapy and Clinical Impression ? ? : ?_ . CLINICAL INFORMATION This Pap Test has been evalu ated with the assistance of the [employer] Brewing Company[employer] Pap Test Imaging System. Note: The Pap test is a screening test for cervical cancer with an inherent false-negative rate dependent upon several variables. ??For further information please contact the [facility] Laboratory. Reference: ??Andrey CS. ? ?Perennial House Manager of Pap Smear Results. ??In: ??Wander BS, Jose HH, ed. ??The Pap Smear. ??[place]: ??Elijah, 20 02: ??71-77. Specimen (Source) Anatomical Collection Method Collection Time Re ceived Time Location / / Volume Laterality 11/26/2016 3:41 PM EST Angelica Joaquin APRN PATHOLOGY/CYTOLOGY ORDERABLE S Performing Organization Address City/[facility]/[place] [address] RN CLINICAL RESEARCH Cytology Interpretation (11/26/2016 3:41 PM EST) [facility] Method Time Signature Junior Web Designer Cytology NILM [facility] LABORATORY Comment: Junior Web Designer Cytology Final Report Acces ayleen: [id number] Endocervical Component Present [facility] Specimen Anatomical Collection Method Collection Time Receive d Time (Source) Location / / Volume Laterality AP Specimen 11/26/2016 3:41 PM 7 EST 12:00 PM EST Angelica Joaquin APRN PATHOLOGY/CYTOLOGY ORDERABLE S Performing Organization Address City/[facility]/[place] [address] HPV (11/26/2016 3:41 PM EST) [facility] Method Time Signature HPV 16 NEGATIVE NEGATIVE [facility] HPV 18 NEGATIVE NEGATIVE [facility] HPV Other HR NEGATIVE NEGATIVE [facility] HPV See Comment [facility] LABORATORY Comment: NEGATIVE for high-risk HPV *. * Testing negative for high risk HPV ellis ns that the specimen is negative for the following 14 types tested: ??types 1 6, 18, 31, 33, 35, 39, 45, 51, 52, 56, 58, 59, 66, and 68. ??The test is not in tended to detect low risk HPV types. Mustapha Chloe HPV test Specimen: HPV Testing - Cytology Liquid Based Prep Specimen Anatomical Collection Method Collection Time Receive d Time (Source) Location / / Volume Laterality Cervical swab 11/26/2016 3:41 PM 11/26/19 17 5:17 (specimen) EST PM EST Resulting Agency Comment Spec In Lab Angelica Joaquin APRN PATHOLOGY/CYTOLOGY ORDERABLE S Performing Organization Address City/State/[place] [address] Cytopathology Gynecological (11/26/2016 3:41 PM EST) Specimen Anatomical Collection Method Collection Time Receive d Time (Source) Location / / Volume Laterality AP Specimen 11/26/2016 3:41 PM 7 3:41 EST PM EST Narrative [facility] - 11/26/2016 3:41 PM EST Specimen requisition ordered. ??Separate Pathology report to follow Doretha Jerez MD PATHOLOGY/CYTOLOGY ORDERABLE S Performing Organization Address City/State/[place] [address] documented in this encounter Visit Diagnoses Diagnosis Ovarian low malignant potential tumor Neoplasm of unspecified nature of other genitourinary organs documented in this encounter Care Teams File Machine Operator Relationship Specialty Start Date End Date Sarita Valencia MD PCP - General 09/24/10 07/19/18 [address] [place] [address] documented as of this encounter
--- OUTSIDE RECORDS SUMMARY | 2022-05-19 00:13 | XMS_ITS | Encounter Summary ---
:1950 [place] [address] Care Team Providers Name Role Phone Sarita Valencia MD Primary Care Provider Encounter Details Date Type Department Care Team Description 08/07/2015 External Results Gynecology [facility]cology [facility] [place] [phone] Social History Tobacco Use Types Packs/Day [...] encounter Procedures Procedure Name Priority Date/Time Associated Diagnosis Comme nts CANCER ANTIGEN 125 Routine 08/03/2015 Results f or this procedure are i n the results section . documented in this encounter Results (ABNORMAL) Cancer Antigen 125 (08/03/2015) P athologist Signature CA 125 <6 (External Lab) Specimen (Source) Anatomical Location Collection Method / Collectio n Time Received Time / Laterality Volume Blood specimen 08/03/2015 (specimen) Doretha Jerez MD CHEMISTRY ORDERABLES documented in this encounter Visit Diagnoses Not on filedocumented in this encounter Care Teams Manager Of Drilling Relationship Specialty Start Date End Date Sarita Valencia MD PCP - General 09/24/10 07/19/18 [address] [place] [address] documented as of this encounter
--- OUTSIDE RECORDS SUMMARY | 2022-05-19 00:13 | XMS_ITS | Encounter Summary ---
:1950 Author Organization [facility] [place] [address] Care Team Providers Name Role Phone Sarita Valencia MD Primary Care Provider Reason for Visit Reason Comments Establish Care 6 mth ck Encounter Details Date Type Department Care Team Description 05/27/2017 Office Visit Gynecology Oncology Angelica Joaquin Ova malgorzata low malignant potential tumor; at [facility] M, WHEEL ALIGNMENT MECHANIC Atrophic vulva [facility] [address] [place] [phone] Social History Tobacco Use Types Packs/Day Years [...] Sign Reading Time Taken Comments Blood Pressure 110/68 05/27/2017 1:38 PM EDT Pulse 71 05/27/2017 1:38 PM EDT Temperature 37.2 ??C (99 ??F) 05/27/2017 1:38 PM EDT Respiratory Rate 24 05/27/2017 1:38 PM EDT Oxygen Saturation 99% 05/27/2017 1:38 PM EDT Inhaled Oxygen Concentration - - Weight 75 kg (165 lb 5.5 oz) 05/27/2017 1:38 PM EDT Height - - Body Mass Index 35.78 11/26/2016 2:23 PM EST documented in this encounter Progress Notes Angelica Joaquin, WHEEL ALIGNMENT MECHANIC - 05/27/2017 1:30 PM EDT Division [place] [address] Reason For Visit: Post Treatment Surveillance Exam History of Present Illness: Sandrita San is a 65 y.o. woman who presents today for surveillance exam. 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 Jerez on 01/2015. Cervix and uterus were not removed. Pap and HR HPV 11/2016 were negative/normal. Interim Health: Feeling fine overall. She reports 1 month hx of vulvar burning, it comes and goes, can go 1 week without symptoms, then have symptoms a few times a day. Sx can be associated with wipingafter voiding, but can also occur unrelated to toileting. She has been using pantyliner, which she wonders if that could be causing the burning. No itching, bleeding or discharge. Feels better if she drinks more fluids/water. Otherwise no new medical issues, surgeries or hospitalizations. She expresses some concern re: family hx of cancer and wonders if she would be a candidate for genetic testing given her personal hx of borderline tumor and family history. FHX: Paternal aunts x 3 developed breast cancer in their 50s, father CHF/cirhosis. Mother age 49 from cancer inthe abdomen (unknown primary site). ROS: No Fever, chills, nausea, vomiting, diarrhea No Pelvic or abdominal pain. Bloating off/on r/t bowel function/celiac disease. Bowel function- Daily BM. Managing celiac, though occasional fecal staining No bladder concerns or changes. Occasional urge. No frequency. Occasion incontinence. Trying to do more kegels. Energy level tires more easily, d/t sleep apnea. No Vaginal bleeding or discharge Long hx of L ankle edema, no changes. Improves with elevation. ?? Weight is stable Reports appetite is ok No SOB, cough or chest pain Sexual function: No changes or concerns. No longer sexually active, d/t 's medical issues. ?? Mood is up Advanced directives- Sandrita does have a copy at home. She is asked to bring a copy with her at the time of her next appointment. Health Habits: Tobacco: nonsmoker Occasional social ETOH. Exercise: nothing formal, hopes to start yoga (her son has been bothering her to be more active) Health Maintenance: Mammogram: 09/2015, overdue will plan to schedule. Colonoscopy: 12/2014, repeat 3years Social History: Lives with her , he has bi-polar d/o and has not been doing well lately. 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 ?? Patient Active Problem [...] ADNEXA performed by Doretha Jerez MD at [facility] OR? Pro removal of ovary/tube(s)?? Bilateral?? 02/23/2015?? @SALPINGO-OOPHORECTOMY, UNILATERAL OR LUZMARIA performed by Doretha Jerez MD at [facility] OR? Pro laryngoscopy, direct, dx, op microscop?? N/A?? 02/23/2015?? LARYNGOSCOPY, WITH MICROSCOPE performed by Thomas Khoury MD at [facility] OR?? Allergies?? Allergen?? Reactions? Amoxicillin-Pot Clavulanate?? Diarrhea? [...] Rectovaginal exam: no appreciable masses or tenderness. Urine dip: negative ASSESSMENT/PLAN: Sandrita San is a 65 y.o. 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 She has no evidence of recurrent disease. We reviewed signs and symptoms of recurrent disease. Vulvar irritation: atrophic changes. Discussion and recommendations re: general vulvar care. Recommended avoiding always brand panty-liners. Ok to use coconut oil as barrier/moisturizer. F/u if sx worsen, could consider vaginal estrogen cream if sx worsen/fail to improve. Genetic counseling: based on personal hx of borderline tumor, genetic testing is not typically recommended. She is given hand out re: familial cancer program and encouraged to call to see if she would be a candidate for testing based on her family history. She will RTC in 6 months, sooner prn with questions/concerns. Angelica Joaquin APRN documented in this encounter Plan of Treatment Not on filedocumented as of this encounter Visit Diagnoses Diagnosis Ovarian low malignant potential tumor Neoplasm of unspecified nature of other genitourinary organs Atrophic vulva Atrophy of vulva documented in this encounter Care Teams Market Superintendent Relationship Specialty Start Date End Date Sarita Valencia MD PCP - General 09/24/10 07/19/18 [address] [place] [address] documented as of this encounter
--- OUTSIDE RECORDS SUMMARY | 2022-05-19 00:13 | XMS_ITS | Encounter Summary ---
:1950 Author Organization [facility] [place] [address] Care Team Providers Name Role Phone Caitlyn Sierra APRN Primary Care Provider Encounter Details Date Type Department Care Team Description 03/19/2020 TH Visit Gynecology Oncology Nat Harrell an low malignant (TeleHealth) at [facility] MD Sanket potential tumor [facility] [address] [place] G[place]OLOGY [address] ONCOLOGY [phone] [place] [id number] Social History Tobacco Use Types Packs/Day Years [...] on file documented as of this encounter Progress Notes Nat Harrell MD - 03/19/2020 3:00 PM EDT Division [place] [address] Gynecologic Oncology-Telephone Encounter. Reason/purpose for phone call: serous LMP f/u Patient's physical location at the time of this telehealth/telephone visit: Home, in [place]. The patient voiced an understanding of the reason and intent of the televisit/phone call, verified her date of , and provided verbal consent to discuss clinical issues by phone. Additionally, the patient acknowledged that a telephone consultation is potentially a billable encounter, and that the patient or their medical insurance carrier could be billed for this service, and provided verbal consent for the encounter. Date: 03/19/20. Total time of call/video conference: 8 minutes. 3:03- 3:09 an additional 2 minutes and documentation and coordination of care. Summary of conversation, decision making, and plan: See below I spent a total of 8 minutes on this visit,including time with the patient and pre-/post-visit planning for the management of serous borderline tumor of the ovary. History of Present Illness: Sandrita San is a 69 y.o. woman who is having a telephone encounter given the COVID-19 pandemic. 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 Harrell on 01/2015. Cervix and uterus were not removed. Pap and HR HPV 11/2016 were negative/normal. Pap testing in no longer indicated. She has been doing well aside from some weight changes which she attributes to changes in her being more sedentary due to the COVID pandemic. Denies abdominal pain, vaginal bleeding or blood in the stool or urine. She denies abdominal pain. She denies abdominal distention, leg pain/swelling, shortnessof breath or headaches. She has no changes to her health or past surgical history. Patient Active Problem List?? Diagnosis?? Code? Vitamin [...] trigger release? Cochlear implant? Cochlear implant?? Right?? 1996?? umbrella prosthesis from the oval window to the tympanic membrane and precludes MRI? Knee arthroscopy?? Right? Adenoidectomy? Pro lap, rmv adnexal structure?? N/A?? 02/23/2015?? LAPAROSCOPY, REMOVAL OF ADNEXA performed by Nat Harrell MD at [facility] OR? Pro removal of ovary/tube(s)?? Bilateral?? 02/23/2015?? @SALPINGO-OOPHORECTOMY, UNILATERAL OR LUZMARIA performed by Nat Harrell MD at [facility] OR? Pro laryngoscopy, direct, dx, op microscop?? N/A?? 02/23/2015?? LARYNGOSCOPY, WITH MICROSCOPE performed by Thomas Khoury MD at [facility] OR?? ASSESSMENT/PLAN: Sandrita San is a 69 y.o. 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 She has no evidence of recurrent disease. We reviewed signs and symptoms of recurrent disease. She has completed 5 years of posttreatment surveillance and was referred back to her local providersfor ongoing care. From this point forward, I would recommend an annual pelvic exam. Should concerns be raised for recurrent disease she knows to contact my office. NAT HARRELL MD documented in this encounter Plan of Treatment Not on filedocumented as of this encounter Visit Diagnoses Diagnosis Ovarian low malignant potential tumor Neoplasm of unspecified nature of other genitourinary organs documented in this encounter Care Teams Engine Buildup Mechanic Relationship Specialty Start Date End Date Caitlyn Sierra APRN PCP - General Family Medicine 07/20/[address] [place] [address] documented as of this encounter
--- OUTSIDE RECORDS SUMMARY | 2022-05-19 00:13 | XMS_ITS | Encounter Summary ---
:1950 [place] [address] Care Team Providers Name Role Phone Sarita Valencia MD Primary Care Provider Reason for Visit Reason Comments Established Encounter Details Date Type Department Care Team Description 09/07/2015 Office Visit Gynecology Oncology Angelica Joaquin low malignant at [facility], [employer] WELDER potential tumor [facility], [place] [id number] [phone] Social History Tobacco Use Types Packs/Day Years [...] Sign Reading Time Taken Comments Blood Pressure 130/70 09/07/2015 9:54 AM EST Pulse - - Temperature - - Respiratory Rate - - Oxygen Saturation - - Inhaled Oxygen Concentration - - Weight 72.7 kg (160 lb 4.4 oz) 09/07/2015 9:54 AM EST Height - - Body Mass Index 35.01 02/23/2015 7:33 AM EDT documented in this encounter Progress Notes Angelica Joaquin, SPECIAL CLASS WELDER - 09/07/2015 10:06 AM EST Division [place] [address] Reason For Visit: Post Treatment Surveillance Exam History of Present Illness: Sandrita San is a 64 y.o. woman who presents today for surveillance exam. 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 Jerez on 01/2015. 08/2015: CA 125 was normal at <6 Interim Health: Thyroid medication has been adjusted. Notes upper abdominal/epigastric pain, was seen by her PCP, had an upper GI this past week, which showed hiatal hernia and significant reflux. She just started on omeprazole and has a endoscopy scheduled. Otherwise she is doing fine. No surgeries or hospitalizations since her last visit with Dr. Jerez in 03/2015. ROS: No Fever, chills, nausea, vomiting, diarrhea Abdominal pain as above. Occasional bloating r/t celiac disease. No pelvic pain. No bladder concerns or changes. Bowel function: BM vary d/t celiac disease. She has to watch her diet and fluid intake to help control her BM. Energy level: stable, tends to have low energy d/t thyroid d/o. No Vaginal bleeding or discharge Long hx of L ankle edema, no changes. Weight is stable. Though she feels like she has gained some weight. Reports appetite is good No SOB, cough or chest pain Sexual function: No longer sexually active, d/t 's medical issues. Health Habits: Tobacco: nonsmoker ETOH: Occasional social on holidays. Exercise: Walking at least 20minutes daily Health Maintenance: Mammogram: Done locally 09/05/15. Colonoscopy: 12/2014, repeat 3 years Social History: Lives with her . He has a hx of bipolar disorder- he is doing better than he has in years. 2 adult children. 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 Patient Active Problem List Diagnosis Code ??? Vitamin B 12 deficiency E53.8 ??? Facial droop R29.810 ??? Rosacea L71.9 ??? Hypothyroidism E03.9 ??? Celiac disease K90.0 ??? Hearing loss H91.90 ??? Depression F32.9 ??? 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 Heart murmur R01.1 ??? DIFFICULT AIRWAY T88.4XXA Past Surgical History Procedure Laterality Date ??? Carpal tunnel release left wrist ??? section 1983 ??? Tonsillectomy ??? Finger trigger release ??? Cochlear implant ??? Cochlear implant Right 1995 umbrella prosthesis from the oval window to the tympanic membrane and precludes MRI ??? Knee arthroscopy Right ??? Adenoidectomy ??? Pro lap, rmv adnexal structure N/A 02/23/2015 LAPAROSCOPY, REMOVAL OF ADNEXA performed by Doretha Jerez MD at [facility] OR ??? Pro removal of ovary/tube(s) Bilateral 02/23/2015 @SALPINGO-OOPHORECTOMY, UNILATERAL OR LUZMARIA performed by Doretha Jerez MD at [facility] OR ??? Pro laryngoscopy, direct, dx, op microscop N/A 02/23/2015 LARYNGOSCOPY, WITH MICROSCOPE performed by Thomas Khoury MD at [facility] MAIN OR Allergies Allergen Reactions ??? Amoxicillin-Pot Clavulanate Diarrhea ??? Aspirin Abdominal pain ??? Gluten Diarrhea and Rash ??? Ibuprofen Other (See Comments) Abdominal pain Current Outpatient Prescriptions on File Prior to Visit Medication Sig Dispense Refill ??? levothyroxine (SYNTHROID) 150 mcg Tablet Take 150 mcg by mouth as needed. Thursday and Thursday ??? metroNIDAZOLE (METROGEL) 1 % Gel Apply topically daily. ??? pyridoxine (B-6) 100 mg Tablet Take 100 mg by mouth daily. ??? cyanocobalamin 1,000 mcg Tablet Take 1,000 mcg by mouth daily. ??? folic acid (FOLVITE) 400 mcg Tablet Take 400 mcg by mouth daily. ??? dapsone (ACZONE) 25 mg tablet 50mg, PO, Once daily and PRN No current facility-administered medications on file prior to visit. Vital Signs: BP 130/70 mmHg Wt 72.7 kg (160 lb 4.4 oz) PHYSICAL EXAM: Gen: Pleasant, NAD, Alert, appears well HEENT: No clavicular adenopathy or appreciable thyromegaly Lungs: clear to auscultation Cor: heart RRR with systolic murmur Abdomen: soft, non- distended, non-tender, no appreciable masses or inguinal adenopathy Lower Extremities: without edema Pelvic exam: atrophic external female genitalia; vulva, urethral meatus, and perineum are without lesions. Speculum exam: Vagina and cervix with atrophic changes, no visible lesions. Bimanual/rectovaginal exam: Adnexae surgically absent. No appreciable uterine or pelvic masses, nodularity or tenderness. Rectovaginal exam: good tone, no appreciable masses or tenderness. ASSESSMENT/PLAN: Sandrita San is a 64 y.o. woman who is post treatment of [...] organs documented in this encounter Care Teams Photo Producer Relationship Specialty Start Date End Date Sarita Valencia MD PCP - General 09/24/10 07/19/18 [address] [place] [address] documented as of this encounter
--- OUTSIDE RECORDS SUMMARY | 2022-05-19 00:13 | XMS_ITS | Encounter Summary ---
:1950 Author Organization [facility] [address] Care Team Providers Name Role Phone Caitlyn Sierra APRN Primary Care Provider Reason for Visit Reason Comments Established 6m f/u Encounter Details Date Type Department Care Team Description 07/20/2018 Office Visit Gynecology Oncology Angelica Joaquin Ova malgorzata low malignant at [facility] [place] potential tumor [facility] [address], [place] [phone] Social History Tobacco Use Types Packs/Day Years [...] Sign Reading Time Taken Comments Blood Pressure 128/76 07/20/2018 2:05 PM EDT Pulse 70 07/20/2018 2:05 PM EDT Temperature 37.1 ??C (98.7 ??F) 07/20/2018 2:05 PM EDT Respiratory Rate 18 07/20/2018 2:05 PM EDT Oxygen Saturation 96% 07/20/2018 2:05 PM EDT Inhaled Oxygen Concentration - - Weight 77.3 kg (170 lb 6.7 oz) 07/20/2018 2:05 PM EDT Height 144.8 cm (4' 9.01) 07/20/2018 2:05 PM EDT Body Mass Index 36.87 07/20/2018 2:05 PM EDT documented in this encounter Progress Notes Angelica Joaquin, COMPUTER NUMERIC CONTROL SETTER - 07/20/2018 2:00 PM EDT Division [place] [address] Reason For Visit: Post Treatment Surveillance Exam [...] in no longer indicated. Interim Health: Feeling ok, disappointed that she continues to gain weight, otherwise no new medicalissues, surgeries or hospitalizations. ROS: No Pelvic or abdominal pain. Bloating off/on r/t bowel function/celiac disease, no changes Bowel function- Daily BM. Managing celiac, though occasional fecal staining Bladder function: is ok, occasional urge incontinence. Energy level: tires more easily, d/t sleep apnea No Vaginal bleeding or discharge Long hx of L ankle edema- did seem a little worse this past summer with the heat. Does improve with elevation. ?? Weight is stable Reports appetite is good No SOB, cough or chest pain Sexual function: No changes or concerns. No longer sexually active, d/t 's medical issues. ?? Advanced directives- Sandrita does have a copy at home. Health Habits: Tobacco: nonsmoker Occasional social ETOH. Exercise: nothing formal,active with chores Health screening: Mammogram up to date. Colonoscopy: Unsure- will check PCP to see when she is due. Social History: Lives with her , he has bi-polar d/o, he is doing better. 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 ?? Patient Active Problem [...] ADNEXA performed by Doretha Jerez MD at [facility] OR? Pro removal of ovary/tube(s)?? Bilateral?? 02/23/2015?? @SALPINGO-OOPHORECTOMY, UNILATERAL OR LUZMARIA performed by Doretha Jerez MD at [facility] OR? Pro laryngoscopy, direct, dx, op microscop?? N/A?? 02/23/2015?? LARYNGOSCOPY, WITH MICROSCOPE performed by Thomas Khoury MD at [facility] OR?? Allergies?? Allergen?? Reactions? Amoxicillin-Pot Clavulanate?? Diarrhea? [...] reviewed signs and symptoms of recurrent disease. Spoke with patient re: concerns about her weight/elevated BMI of Body mass index is 36.87 kg/(m^2). Discussed nutritional and lifestyle changes that may assist in successful wt. loss. She will RTC per SGO guidelines q 6 months. She will RTC sooner prn with questions/concerns. Angelica Joaquin APRN documented in this encounter Plan of Treatment Not on filedocumented as of this encounter Visit Diagnoses Diagnosis Ovarian low malignant potential tumor Neoplasm of unspecified nature of other genitourinary organs documented in this encounter Care Teams Bilingual Counter Sales Retail Relationship Specialty Start Date End Date Caitlyn Sierra APRN PCP - General Family Medicine 07/20/[address] [place] [address] [address] [place] [address] documented as of this encounter
--- OUTSIDE RECORDS SUMMARY | 2022-05-19 00:13 | XMS_ITS | Encounter Summary ---
:1950 Author Organization [facility] [place] [address] Care Team Providers Name Role Phone Sarita Valencia MD Primary Care Provider Reason for Visit Reason Comments Post Hospital Discharge Encounter Details Date Type Department Care Team Description 03/21/2015 Office Visit Gynecology Oncology Doretha Jerez, Pe lvic mass in female at [facility] [address] [place], [place] GYNECOLOGY [address] ONCOLOGY [phone] [place], [place] [address] Social History Tobacco Use Types Packs/Day Years [...] Sign Reading Time Taken Comments Blood Pressure 102/62 03/21/2015 2:03 PM EDT Pulse 67 03/21/2015 2:03 PM EDT Temperature 36.5 ??C (97.7 ??F) 03/21/2015 2:03 PM EDT Respiratory Rate 18 03/21/2015 2:03 PM EDT Oxygen Saturation 97% 03/21/2015 2:03 PM EDT Inhaled Oxygen Concentration - - Weight 71.2 kg (157 lb) 03/21/2015 2:03 PM EDT Height - - Body Mass Index 34.3 02/23/2015 7:33 AM EDT documented in this encounter Progress Notes Katya Steinberg MD - 03/21/2015 2:19 PM EDT Division [place] [address] Postoperative Visit: Patient Active Problem List Diagnosis Code ??? Vitamin B 12 deficiency 266.2 ??? Facial droop 781.94 ??? Rosacea 695.3 ??? Hypothyroidism 244.9 ??? Celiac disease 579.0 ??? Hearing loss 389.9 ??? Depression 311 ??? 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 Heart murmur 785.2 ??? DIFFICULT AIRWAY Subjective: Sandrita San returns to the office today for her postoperative visit. On 02/23/2015 she underwent alaparoscopic BSO. Her postoperative course was uncomplicated. She has been doing well since surgery.She has stopped taking narcotic pain medications and is having regular bowel movements. Her energy le bruce is improving, though she is somewhat tired and she is eating well. 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 She denies fevers, chills, dysuria, incisional concerns, abdominal pain, vaginal bleeding, nausea, vomiting or diarrhea. Objective: Filed Vitals: 03/21/15 1403 BP: 102/62 Pulse: 67 Temp: 36.5 ??C (97.7 ??F) TempSrc: Oral Resp: 18 Weight: 71.215 kg (157 lb) SpO2: 97% Body mass index is 34.3 kg/(m^2). There is no height on file to calculate BSA. Physical Exam Gen: well appearing, pleasant and conversant in NAD CV: RRR, no MRG Lungs: CTAB Abd: soft, non-tender, 3 well healed port incisions are well approximated, without erythema, weeping. Ext: no edema to BL LE Surgical Pathology: ---Pathologic Diagnosis--- A - Right ovary and fallopian tube, resection for frozen section: 1 - Serous cystic borderline tumor of the ovary (see Comment). 2 - Fallopian tube without histopathological abnormality. 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 2 - Fallopian tube without histopathological abnormality. Primary tumor stage: pT1b [IB] Assessment and Plan: Sandrita San is a 64 y.o. 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 She is doing well postoperatively and is advised that she may resume her usual activities at 6 weeks. She's provided with a copy of her operative note and pathology report for her records and they are discussed today in detail. Overall, the prognosis for low malignant potential tumors of the ovary depends upon the stage and histologic features of the tumor, but is generally good. A series of 2818 women with ovarian tumors of low malignant potential from the Surveillance, Epidemiology, and End Results (SEER) database from [facility] reported the following 5 and 10 year relative survival rates: ?? Stage I - 99 and 97 percent, respectively The risk of malignant transformation is unclear. For example, a serous ovarian tumor of low malignant potential may recur with similar histology or as a peritoneal grade 1 serous carcinoma, or both histologies may be present. In one series of 339 women with borderline tumors, only 2 percent went on todevelop invasive carcinoma. Progression to invasive cancer may represent true transformation, de mindy development of an ovarian cancer, or a primary peritoneal cancer. Given this diagnosis, I recommend the following: ?? Review of systems and physical examination - for the first five years, every six months; then annually. ?? If a recurrence is suspected, computed tomography (CT) of the pelvis should be performed. Attended by Dr. Doretha Steinberg MD CC: Sarita Valencia MD [address] [address] I have seen and examined the patient and reviewed and edited the resident's above history and I agree with the details as written. The assessment and plan were formulated in discussion with me and I agree with them as documented. Doretha Jerez MD documented in this encounter Plan of Treatment Not on filedocumented as of this encounter Visit Diagnoses Diagnosis Pelvic mass in female Abdominal or pelvic swelling, mass or esther mp, unspecified site documented in this encounter Care Teams Cryptographic Clerk Relationship Specialty Start Date End Date Sarita Valencia MD PCP - General 09/24/10 07/19/18 [address] [place] [address] documented as of this encounter
--- OUTSIDE RECORDS SUMMARY | 2022-05-19 00:13 | XMS_ITS | Encounter Summary ---
:1950 Author Organization [facility] [place] [place] [address] Care Team Providers Name Role Phone Sarita Valencia MD Primary Care Provider Reason for Visit Reason Comments Established 6 mth ck Encounter Details Date Type Department Care Team Description 12/16/2017 Office Visit Gynecology Oncology Angelica Joaquin Ova malgorzata low malignant potential tumor; at [facility] M, UI SOFTWARE DEVELOPER Urinary urgency [address] [place], [place], [place] [phone] Social History Tobacco Use Types Packs/Day Years [...] Sign Reading Time Taken Comments Blood Pressure 140/78 12/16/2017 2:25 PM EST Pulse 68 12/16/2017 2:25 PM EST Temperature 36.9 ??C (98.4 ??F) 12/16/2017 2:25 PM EST Respiratory Rate 18 12/16/2017 2:25 PM EST Oxygen Saturation 99% 12/16/2017 2:25 PM EST Inhaled Oxygen Concentration - - Weight 75.8 kg (167 lb 1.7 oz) 12/16/2017 2:25 PM EST Height 144.8 cm (4' 9.01) 12/16/2017 2:25 PM EST Body Mass Index 36.15 12/16/2017 2:25 PM EST documented in this encounter Progress Notes Angelica Joaquin, UI SOFTWARE DEVELOPER - 12/16/2017 2:00 PM EST Division of [place] [address] Reason For Visit: Post Treatment Surveillance Exam [...] in no longer indicated. Interim Health: Feeling fine. No new medical issues, surgeries or hospitalizations. She does note recent changes in bladder function: Occasional urge and more recently frequency and needing to double void to empty. Voids less often during the day, every 8 hours and more frequently in the evening after work. Occasional DELMA. No dysuria or hematuria. ROS: No Fever, chills, nausea, vomiting. No Pelvic or abdominal pain. Bloating off/on r/t bowel function/celiac disease, no changes Bowel function- Daily BM. 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 No Vaginal bleeding or discharge Long hx [...] social ETOH. Exercise: nothing formal,active with chores Social History: Lives with her , he has bi-polar d/o. He fell [facility] the [facility] roof shoveling snow and broke his heel and s/p surgery. Sabina has been doing all the chores. 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 ?? Patient Active [...] ADNEXA performed by Doretha Jerez MD at [facility] MAIN OR? Pro removal of ovary/tube(s)?? Bilateral?? 02/23/2015?? @SALPINGO-OOPHORECTOMY, UNILATERAL OR LUZMARIA performed by Doretha Jerez MD at [facility] MAIN OR? Pro laryngoscopy, direct, dx, op microscop?? N/A?? 02/23/2015?? LARYNGOSCOPY, WITH MICROSCOPE performed by Thomas Khoury MD at [facility] OR?? Allergies?? Allergen?? Reactions? Amoxicillin-Pot Clavulanate?? [...] or tenderness. Adnexae surgically absent. Rectovaginal exam: exam limited secondary to stool in vault. No appreciable masses or tenderness. Fem catheter was inserted into urethral meatus without problems, post void residual < 10 cc. ASSESSMENT/PLAN: Sandrita San is a 65 y.o. 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 She has no evidence of recurrent disease. We reviewed signs and symptoms of recurrent disease. Bladder function: Discussion re: timed voiding, bladder training, avoiding bladder irritants.Urine sent for u/a and culture. She will continue to monitor her sx and will f/u if her sx worsen or fail toimprove. Otherwise she will RTC per SGO guidelines q 6 months. She will RTC sooner prn with questions/concerns. Angelica Joaquin APRN 12/18/17-Addendum: U/A negative. documented in this encounter Plan of Treatment Not on filedocumented as of this encounter Procedures Procedure Name Priority Date/Time Associated Comments Diagnosis URINALYSIS WITH Routine 12/16/2017 3:15 PM Ovarian low Result s for this REFLEX CULTURE EST malignant potential proced ure are in tumor the results section. documented in this encounter Results Urinalysis with reflex Culture (12/16/2017 3:15 PM EST) [facility] Method Time Signature Glucose UA Negative Negative [facility] mg/dL [facility] Protein UA Negative Negative [facility] mg/dL [facility] Bilirubin UA Negative Negative [facility] mg/dL [facility] Comment: Clinical correlation required for positi ve Urine Bilirubin results as false positive may occur with some drugs and d rug related products. If a false positive is suspected a serum total bili palacios should be considered if clinically indicated. Urobilinogen UA Normal Normal mg/dL [facility] pH UA 6.0 5.0 - 8.0 [facility] Blood UA Negative Negative mg/dL [facility] Ketones UA Negative Negative mg/dL [facility] Nitrite UA Negative Negative [facility] Leukocytes UA Negative Negative [facility] Appearance UA Clear Clear [facility] Spec [place] UA 1.011 1.002 - 1.030 [facility] Color UA Yellow Yellow [facility] Culture Reflexed No [facility] Specimen Anatomical Collection Method Collection Time Receive d Time (Source) Location / / Volume Laterality Urine specimen 12/16/2017 3:15 PM 018 3:38 obtained via EST PM EST straight catheter (specimen) Resulting Agency Comment Spec In Lab Angelica Joaquin UI SOFTWARE DEVELOPER URINE ORDERABLES Performing Organization Address City/State/[place] [address] documented in this encounter Visit Diagnoses Diagnosis Ovarian low malignant potential tumor Neoplasm of unspecified nature of other genitourinary organs Urinary urgency Urgency of urination documented in this encounter Care Teams Rigging Man Relationship Specialty Start Date End Date Sarita Valencia MD PCP - General 09/24/10 07/19/18 [address] [place] [address] documented as of this encounter
--- OUTSIDE RECORDS SUMMARY | 2022-05-19 00:14 | XMS_ITS | Encounter Summary ---
:1950 [place] [address] Care Team Providers Name Role Phone Sarita Valencia MD Primary Care Provider Encounter Details Date Type Department Care Team Description 02/23/2015 Surgery Main Operating Room Nat Jerez LA PAROSCOPY, REMOVAL OF Misty Watson MD ADNEXA (WRVU 11.35) [facility] DR Meza [place] [address] [place] [id number] [phone] (Wo rk) Social History Tobacco Use Types [...] Sign Reading Time Taken Comments Blood Pressure 104/58 02/23/2015 1:32 PM EDT Pulse 71 02/23/2015 1:32 PM EDT Temperature 36.4 ??C (97.5 ??F) 02/23/2015 11:15 AM EDT Respiratory Rate 18 02/23/2015 1:32 PM EDT Oxygen Saturation 98% 02/23/2015 1:32 PM EDT Inhaled Oxygen Concentration - - Weight 71.2 kg (157 lb) 02/23/2015 7:33 AM EDT Height 144.1 cm (4' 8.73) 02/23/2015 7:33 AM EDT Body Mass Index 34.3 02/23/2015 7:33 AM EDT documented in this encounter Discharge Instructions Discharge InstructionsYvette Wing RN - 02/23/2015 11:47 AM EDT POST ANESTHESIA INSTRUCTIONS Go home, rest, use caution on stairs. Change positions slowly. Do not smoke if you are alone. Diet light to regular as tolerated today. If nausea occurs start with clear liquids and progress slowly. No driving, operating machinery, alcoholic beverages and no important decisions for 24 hours. Monitor IV site for signs and symptoms of infection: increasing redness, swelling, foul drainage, ifoccurs contact M.D. Patients who have had endotrachial tubes (this tube, used by anesthesia department, is passed down your throat after you are asleep, to ensure safe air passage during your operation). A sore throat is normal due to the tube. Cold liquids or soothing lozenges will help ease the discomfort. The generalized muscle aches are due to the medication given to you just before the tube is inserted. As the medication wears off, you may develop muscle soreness, which usually goes away in 12-24 hours Narcotic bowel orders (oxycodone) 1. Drink plenty of fluid 2. Take with food or milk to help prevent nausea/vomiting 3. Get extra fiber in your diet 4. May need over the counter stool softner (colace 100mg twice per day) 5. If no bowel movement within 3 days, you may need to take a laxative Patient InstructionsDa Zapata MD - 02/23/2015 10:44 AM EDT PATIENT DISCHARGE INSTRUCTIONS Gynecology Oncology phone number: [phone] Call your doctor if you develop: --A fever over 101 degrees --Severe pain --Heavy vaginal bleeding --Increasing pain, redness, or discharge at your incision Activity level: No heavy lifting, pushing or pulling for 4 weeks. No sexual intercourse, no tampons,nothing in the vagina for 2 weeks. Diet: You may resume your regular diet. Be sure you drink plenty of fluids. Please use a stool softener such as colace twice daily for the entire time that you are taking pain medication to keep your bowel movements soft and regular. If you are constipated or have not had a bowel movement in 3 days, please use milk of magnesia (or miralax) as directed over the counter. Driving: Do not drive until you are off of all narcotic medications and you are not feeling pain; usually about 1-2 weeks. Shower/Bath: Showering is fine. Short baths are OK but you should avoid having any abdominal incision submerged for more than 10-15 minutes for the next 2 weeks. Wound Care: Your incisions are closed with skin adhesive (dermabond) which does not require special care. This will peel off on its own after a few days. You have stitches just under the skin and thesewill dissolve on their own over the next couple of weeks. They do not need to be removed or altered. Pain medications include tylenol and oxycodone ??? Please use the tylenol 650mg every 4-6 hours as needed for pain ??? Please use the oxycodone 5mg-10mg every 4-6 hours as needed for pain that breaks through the tylenol Follow-up: - 03/21/2015 at 2:00PM with Dr. Jerez for postoperative visit - [facility] [place] Supervisor Vacuum Metalizing/Oncology [id number] documented in this encounter Medications at Time of Discharge Medication Sig Dispensed Refills Start Date End Date metroNIDAZOLE (METROGEL) Apply topically 0 1 % Gel daily. pyridoxine (B-6) 100 mg Take 100 mg by mouth 0 Tablet daily. cyanocobalamin 1,000 mcg Take 1,000 mcg by 0 Tablet mouth daily. folic acid (FOLVITE) 400 Take 400 mcg by 0 mcg Tablet mouth daily. dapsone (ACZONE) 25 mg 50mg, PO, Once daily 0 11/2005 tablet and PRN polyethylene glycol 0 12/26/201409/07 (MIRALAX) 17 gram/dose Powder oxyCODONE (ROXICODONE) 5 Take 1-2 tablets by 20 tablet 0 09/07/2015 mg Tablet mouth every 4 hours as needed for Pain. levothyroxine (SYNTHROID) Take 125 mcg by 0 09/07/2015 125 mcg Tablet mouth daily. Thursday thru Thursday levothyroxine (SYNTHROID) Take 150 mcg by 0 07/20/2018 150 mcg Tablet mouth as needed. Thursday and Thursday documented as of this encounter H&P Notes Thomas Khoury MD - 02/23/2015 7:55 AM EDT Pre-op ENT note: Patient, Al and I discussed intubation/airway management plan. Her intubation difficulties are well documented in her chart from he last visit to [facility] – [place]. I discussed the case with Dr Sr from anesthesia and in view that we are able to visualize the airway with flexible endoscopy, one means ofaccess would be with fiberoptic bronchoscopy via transnasal route. 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 Getting emergency access for a tracheotomy would be very difficult. We discussed that this measure would be undertaken only if she develops obstruction and we discussed at length potential risks including . She signed consent for the laryngoscopy, possible tracheotomy. MET Nat Jerez MD - 02/23/2015 7:00 AM EDT Inpatient HOUSE SUPERINTENDENT - Admission Interval Note I have reviewed the pre-procedure H&P completed by Dr. Jerez on 01/25/15. (x) Condition changed since H&P originally performed. See interval note below. Interval Note: Patient was scheduled for surgery last week and had multiple failed intubation attempts due to difficult airway. Since that time she has been seen by ENT for clinic evaluation and is nowscheduled for laryngoscopic intubation with ENT for today's procedure. She has otherwise been doing well with no new issues since surgery. Consent in chart. No new meds/allergies or hospital/ER visits.OK to proceed w/surgery Exam: There were no vitals taken for this visit. Gen: appears well, in no acute distress Abd: soft, symmetric, nontender, nondistended Extremities: symmetric, nontender, no edema A copy of this document will be sent to the patient's Primary Care Physician and/or Referring Physician. Da Zapata MD 02/23/2015 I have seen and examined the patient and reviewed and edited the resident's above history and I agree with the details as written. The assessment and plan were formulated in discussion with me and I agree with them as documented. Nat Jerze MD documented in this encounter Miscellaneous Notes Op Note - Nat Jerez MD - 02/23/2015 10:50 AM EDT Images from the original note were not included. 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 Examination under anesthesia: small, mobile, anteverted uterus deflected to patient's right side,8cm mobile adnexal mass in the posterior cul-de-sac. 2. Laparoscopy: Normal liver, gallbladder, appendix, stomach, and bilateral hemidiaphragm, without evidence of carcinomatosis. Normal uterus and normal sized L ovary with small cyst on surface of L ovary. R ovary with 8cm enlarged cyst and normal appearing fallopian tubes bilaterally. 3. 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 Discussion with the pathologist indicated that there was a low likelihood that this would be upstaged to an overt malignancy and thus no further staging procedures were pe rformed. PRE-RESECTION: POST-RESECTION: Anesthesia: General endotracheal (fiber optic nasal intubation) Estimated Blood Loss: 5 mL Specimens removed during surgery: 1. right fallopian tube and ovary for frozen section 2. left fallopian tube and ovary for permanent. 3. Pelvic washings Drains: 200cc clear urine in maynard catheter IVF: 1.2L crystalloid Surgical Closure: Primary Closure - closure of ALL tissue levels during the original surgery regardless of wires, wickes, drains, or other devices extruding through the incision Disposition: awakened from anesthesia, extubated and taken to the recovery room in a stable condition, having suffered no apparent untoward event. Condition: doing well without problems (Please see the Surgical Encounter Summary for any Implant and Specimen details pertinent to this patient.) HPI/Surgical Indications: The patient presented with a family history of breast and colon cancer with 7cm complex cystic mass incidentally noted on CT scan. The patient was scheduled for laparoscopic surgery for removal which was attempted on 02/06. 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 Surgery was rescheduled after ENT consultation, with plan for fiber optic intubation and possible flexible laryngoscopy or tracheostomy. Procedure: The patient was taken to the operating room where general endotrachial anesthesia was obtained without difficulty. She was prepped and draped in the usual sterile fashion in dosal lithotomy position in [facility]. A timeout was performed with all members of the team in agreement. A maynard catheter was inserted into the bladder and drained clear urine. A speculum was placed in thevagina and the anterior lip of the cervix was grasped horizontal fashion with the single toothed tenaculum. Cervix was dilated to #13 Algerian with the William-Pimentel dilators. The Valtchev uterine manipulator was introduced and during attachment to the tenaculum, the tenaculum tore free with a small cervical laceration noted. The tenaculum was replaced and the Valtchev manipulator was attached securely. The infra-umbilical skin was infiltrated with 1cc of 0.5% bupivacaine. A 12mm horizontal skin incision was made 2cm above the umbilicus using the scalpel. The Veress needle was used to achieve pneumoperitoneum up to 15mm Hg without difficulty, with an opening pressure of 3mm Hg. The 12mm optivue laparoscopic trochar was then placed under direct laparoscopic visualization and intraabdominal placement was confirmed with the laparoscope and a successful atraumatic entry was noted. Intraabdominal survey revealed findings as above. Additional bilateral 5mm laparosopic ports was then placed in the RLQ and LLQ after infiltration with 1cc each of 0.5% bupivacaine. Pelvic washings were then obtained. The bilateral ureters were visualized transperitoneally in theircourse through the pelvis. The right ovarian mass was seen with an intact and smooth capsule. The ligasure device was used to cauterize and divide the right ovarian vessels and uteroovarian vessels and fallopian tube to complete a right salpingo-oophorectomy. The specimen was retrieved using an endo-catch bag and drained outside the abdominal cavity using a needle under suction without spillage into the abdominal cavity. The specimen was sent to pathology for frozen section with the findings as above. The left fallopian tube and ovary was removed in an identical fashion to complete a bilateral salpingo-oophorectomy. The specimen was retrieved within an endocatch bag and sent to pathology. The bilateral uteroovarian pedicles were again cauterized using the ligasure device and excellent hemostasis was noted. The Jarvis-Yosvany device was used to place two interrupted 0-vicryl sutures to close the fascia ofthe 12mm umbilical port site. The pneumoperitoneum was then evacuated. The laparoscopic ports were then removed. The skin incisions were noted to be hemostatic and were closed with interrupted subcuticular 4-0 vicryl sutures and covered with dermabond. The maynard catheter was then removed from the bladder. The uterine manipulator and tenaculum were removed and scant bleeding was noted from the cervical laceration where the tenaculum had torn free - this was controlled using the ligasure device for excellent hemostasis. The patient tolerated the procedure well. Sponge and needle counts were correct x2; instrument counts were not performed as per [facility] [place] OR policy. The patient was awakened from anesthesia and taken to therecovery room in stable condition postoperatively. There were no complications. Dr. Jerez, attending physician was present for the entire procedure without conflicting clinical responsibility. Da Zapata MD, PGY4 Da Zapata MD 02/23/2015 I, Nta Jerez MD, attest that I performed this surgery with the assistance of a resident. I was present and participated in the entire surgery, from start to finish, as the primary and attending surgeon of record. Brief Op Note - Nat Jerez MD - 02/23/2015 10:35 AM EDT Brief Operative Note Patient Name: Sandrita San : [id number] MR#: [id number] Case Date: 02/23/2015 Surgeon: Surgeon(s) and Role: Panel 1: * Nat Jerez MD - Primary * Da Zapata MD Panel 2: * Thomas Khoury MD - Primary Preoperative diagnosis: OVARIAN MASS Postoperative diagnosis: OVARIAN MASS Procedure(s): LAPAROSCOPY, REMOVAL OF ADNEXA @SALPINGO-OOPHORECTOMY, BILATERAL, LARYNGOSCOPY, WITH MICROSCOPE Anesthesia: General Findings: RIGHT OVARIAN 10 CM MASS, NORMAL APPEARING LEFT OVARY, NORMAL APPENDIX AND NORMAL UPPER ABDOMEN AFS - Right fallopian tube and ovary: 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 - JLG Complications: NONE Fluids: SEE ANES Estimated Blood Loss: 5 CC Drains: NONE Disposition: awakened from anesthesia, extubated and taken to the recovery room in a stable condition, having suffered no apparent untoward event. Condition: doing well without problems Attestation: Case Date: 02/23/2015 I was present and I participated during the entire procedure (does not need to include opening and closing). (Please see the Surgical Encounter Summary for any Implant and Specimen details pertinent to this patient.) Op Note - Thomas Khoury MD - 02/23/2015 10:17 AM EDT [facility] – [place] Operative Note Patient Name: Sandrita San : [id number] MR#: [id number] Case Date: 02/23/2015 Surgeon: Surgeon(s) and Role: Panel 1: * Nat Jerez MD - Primary * Da Zapata MD Panel 2: * Thomas Khoury MD - Primary Preoperative diagnosis: Difficult airway/ OVARIAN MASS Postoperative diagnosis: Difficult airway/OVARIAN MASS Procedure(s): Otolaryngologic exam under anesthesia Anesthesia: General Estimated Blood Loss:min Specimens removed during surgery: None Drains: none Surgical Closure: n/a Disposition: awakened from anesthesia, extubated and taken to the recovery room in a stable condition, having suffered no apparent untoward event. Condition: doing well without problems (Please see the Surgical Encounter Summary for any Implant and Specimen details pertinent to this patient.) HPI/Surgical Indications: Difficult airway Procedure Description: patient taken to the OR for assistance with intubation with difficult airway on basis of unfavorable neck anatomy with limited extension, prominent base of tongue as well as trismus. I assisted in the patient fiberoptic intubation by Dr Sr from anesthesia. She has a prominent base of tongue, and her glottic airway is best seen when she extends her tongue. A 6.0 SWITCHBOX ASSEMBLER was passed in the glottis and then repeat endoscopy was done to place the tube above the level of the yesenia. Patient will then undergo her procedure by Dr Jerez, dictated separately. Attestation: Case Date: 02/23/2015 I performed this procedure without the involvement of a resident. Thomas Khoury MD 02/23/2015 documented in this encounter Plan of Treatment Not on filedocumented as of this encounter Procedures Procedure Name Priority Date/Time Associated Comments Diagnosis SPECIMEN TO PATHOLOGY Routine 02/23/2015 10:14 Re sults for this AM EDT procedure are i n the results section. NON-OLD COIN DEALER FINAL REPORT Routine 02/23/2015 10:04 Res ults for this AM EDT procedure are i n the results section. CYTOPATHOLOGY Routine 02/23/2015 10:04 Results fo r this NON-GYNECOLOGICAL AM EDT procedure are in the results section. FROZEN SECTION REPORT Routine 02/23/2015 9:48 AM Results for this EDT procedure are i n the results section. SURGICAL PATHOLOGY Routine 02/23/2015 9:48 AM Res ults for this REPORT EDT procedure are i n the results section. SPECIMEN TO PATHOLOGY Routine 02/23/2015 9:47 AM Results for this EDT procedure are i n the results section. LARYNGOSCOPY, WITH Yes 02/23/2015 8:41 AM OVARIAN MASS MICROSCOPE (WRVU 2.57) EDT @SALPINGO-OOPHORECTOMY, Yes 02/23/2015 8:41 AM OVARIAN MAS S UNILATERAL OR LUZMARIA (WRVU EDT 12.16) LAPAROSCOPY, REMOVAL OF Yes 02/23/2015 8:41 AM OVARIAN MAS S ADNEXA (WRVU 11.35) EDT AB COMMENT Routine 02/23/2015 7:17 AM Results f or this EDT procedure are i n the results section. HEMOGRAM Routine 02/23/2015 7:17 AM Results f or this EDT procedure are i n the results section. DIFFERENTIAL, AUTOMATED Routine 02/23/2015 7:17 AM Results for this EDT procedure are i n the results section. CREATININE Routine 02/23/2015 7:17 AM Results f or this EDT procedure are i n the results section. ANTIBODY IDENTIFICATION Routine 02/23/2015 7:17 AM Results for this EDT procedure are i n the results section. ABO/RH TYPING Routine 02/23/2015 7:17 AM Results for this EDT procedure are i n the results section. CBC (WITH DIFF) Routine 02/23/2015 7:17 AM EDT ANTIBODY SCREEN Routine 02/23/2015 7:17 AM Result s for this EDT procedure are i n the results section. TYPE AND SCREEN Routine 02/23/2015 7:17 AM ([facility] [place] [place] EDT ANTIBODY SCREEN MANUAL Routine 02/23/2015 7:16 AM Results for this EDT procedure are i n the results section. ECG SCAN 02/23/2015 12:00 AM EDT documented in this encounter Results Specimen to Pathology (surgical or derm) (02/23/2015 10:14 AM EDT) Specimen Anatomical Collection Method Collection Time Receive d Time (Source) Location / / Volume Laterality AP Specimen 02/23/2015 10:14 02/23/2015 AM EDT 10:14 AM EDT Narrative [facility] - 02/23/2015 10:14 AM EDT Specimen requisition ordered. ??Separate Pathology report to follow Nat Jerez MD PATHOLOGY/CYTOLOGY ORDERABLE S Performing Organization Address City/State/[place] [address] [facility] Non-Supervisor Vacuum Metalizing Final Report (02/23/2015 10:04 AM EDT) Component Value Ref Test Analysis Performed At [facility] Method Time Signature Non-Supervisor Vacuum Metalizing Final CERNER Report ? [facility] ? Provider: ?? NAT JEREZ ?? Pt. Name: ?? SANDRITA SAN ? Acc #: ?[id number] ?Pt. MRN: ?[id number] ? Col Date: ?? 5 ? /Sex: ?1950,(64 years),Female ? Rec Date: ?? 02/23/2015 ? LOC: ?SDA ? CYTOPATHOLOGY: ??NGYN ? ---Cytopathologic Diagnosis--- ? Negative for Malignancy ? 02/26/15 ?Screened by: ? REP ? Rescreened by: ?? FERNANDO ? 03/01/15 ?Verified by: ? Giselle SHAFFER, Josy Nettles ?Pathol ogist ? (Electronic Signature) ? ---Comment--- ? Pelvic Washings: ? Mesothelial cells and white blood cells present. ? Cell block shows similar features. ? ---Clinical Information--- ? Specimen Source: ?Pelvic Washings ? Pertinent Clinical Data and Significant Therapy: ?Ovarian mass ? Clinical Impression: ?Rule out cancer ? Pertinent Radiologic Findings: ?(not provided) ? Gross Description: ?Received fresh, approximatel y 70 ml. total volume of clear, yellow ? fluid. ?Total Preparation: Liquid Based Prep 1; Cell Blo ck 1. Specimen (Source) Anatomical Collection Method Collection Time Re ceived Time Location / / Volume Laterality 02/23/2015 10:04 AM EDT Nat Jerez MD PATHOLOGY/CYTOLOGY ORDERABLE S Performing Organization Address City/State/[place] [address] [facility] Cytopathology Non-Gynecological (02/23/2015 10:04 AM EDT) Specimen Anatomical Collection Method Collection Time Receive d Time (Source) Location / / Volume Laterality AP Specimen 02/23/2015 10:04 02/23/2015 AM EDT 10:04 AM EDT [facility]ative [facility] 02/23/2015 10:04 AM EDT Specimen requisition ordered. ??Separate Pathology report to follow Nat Jerez MD PATHOLOGY/CYTOLOGY ORDERABLE S Performing Organization Address City/[facility]/[place]IP [place] [address] [facility] Surgical Pathology Report (02/23/2015 9:48 AM EDT) Component Value Ref Test Analysis Performed At [facility] gist Range Method Time Signature Surgical CERNER Pathology ? [facility] Report ? Provider: ?? NAT JEREZ ?? Pt. Name: ?? SANDRITA SAN ? Acc #: ?[id number] ?Pt. MRN: ?[id number] ? Col Date: ?? 5 ? /Sex: ?1950,(64 years),Female ? Rec Date: ?? 02/23/2015 ? LOC: ?SDA ? SURGICAL PATHOLOGY ? ---Pathologic Diagnosis--- ? A - Right ovary and fallopian tube, resection for fro christine section: ? 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 ? 2 - Fallopian tube without histopathological ab normality. ? B - Left ovary and fallopian tube, resection: ? 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 ? 2 - Fallopian tube without histopathological ab normality. ? GYNTMRBLK-OV: B2,B3 ? GYNNRL-OV: _ ? TNM Staging (AJCC, 7th ed., 2009): ? Primary tumor stage: ?pT1b [IB] (T umor limited to both ovaries; ?capsule intact; no tumor on ovarian ?surface; no tumor cells in ascites ? Regional lymph nodes: ? pNX ??(Cannot be assessed ) ? Distant metastasis: ? pMX ??(Not applicable or not assessed) ? CR-0 ? 03/01/15 ? ARS ? 03/01/15 Verified by: ? Dannie Alfonso MD ? Pathologist ? (Electronic Si gnature) ? The attending pathologist whose signature appears o n this report has ? reviewed all diagnostic slides and has edited the miguel ss and/or ? microscopic portion of the report in rendering the fi nal pathologic ? diagnosis. ? ---Comment--- ? In both ovaries, the underlying c ystic architecture resembles that of a ? cystadenofibroma. ? ---Frozen Section Diagnosis--- ? Frozen section(s) per formed. ??Please refer to separate electronic frozen ? section report(s). ? ---Microscopic Description--- ? Slides reviewed, microscopic description not recorded . ? S [id number] ? [facility] ? Provider: ?? NAT JEREZ ?? Pt. Name: ?? SANDRITA SAN ? Acc #: ?[id number] ?Pt. MRN: ?[id number] ? Col Date: ?? 5 ? /Sex: ?1950,(64 years),Female ? Rec Date: ?? 02/23/2015 ? LOC: ?SDA ? SURGICAL PATHOLOGY ? ---Gross Description--- ? A - Labeled/Fixative: Right tube and ovary, fresh. ? Qty/Size/Weight: Single, 6.0 x 5.0 x 2.0 cm, 18 grams . ? Specimen Description: Intact, unilateral salpingo-oop horectomy. ? OVARY ? Size: 6.0 x 5.0 x 2.0 cm. ? External Surface: Intact, multicy stic. Dominant smooth cyst filled with ? yellow serous fluid. The maximal wall thickness is 0.6 cm. A second cyst, ? 1.5 x 1.0 x 0.5 cm, is filled with yellow gelatinou s fluid with wall ? thickness of 0.1 cm. Normal ovarian tissue is n ot grossly identified. ? Cut Surface: There is a 3.0 x 2.5 cm focus of pale ye llow papillary ? excrescences in the dominant cyst . The cut surface of the small cyst is ? smooth. ? FALLOPIAN TUBE ? Size: 4.5 x 0.5 cm. ? External Surface: [place]-brown, glistening tube with fimbria partially ? adherent to ovarian cyst. ? SECTIONS/PROCESSING: Carpenter Maintenance section submitted for frozen section ? AFS1, the frozen section residue is submitted as (A 1); (2-6) foci of ? papillary excrescences in total; (7) representa tive cyst wall; (8-11) ? fallopian tube in total. (R11) ? B - Labeled/Fixative: Left tube and ovary, fresh. ? Qty/Size/Weight: Single, 3.5 x 2.5 x 2.0 cm, six gram s fixed. ? Specimen Description: Intact, unilateral salpingo-oop horectomy. ? OVARY ? Size: 2.6 x 2.0 x 1.7 cm. ? External Surface: Yellow-white, glistening, multicyst ic. ? Cut Surface: Multiloculated cyst with 2.0 x 0.5 x 0.5 cm focus of pale ? yellow papillary excrescences. ? FALLOPIAN TUBE ? Size: 3.8 x 0.4 cm. ? External Surface: Glistening salazar- brown tube with multiple paratubal and ? mesosalpingeal cysts containing clear serous fluid, ranging up to 0.5 x 0.3 ? x 0.2 cm. ? SECTIONS/PROCESSING: (1-5) ovary, cyst wall and complete area of papillary ? excrescences; (6-9) fallopian tube in total. (R9) ?jld ? ---Clinical Information--- ? Specimen Submitted: ? A - Right tube and ovary for frozen section ? B - Left tube and ovary ? [facility] ? Provider: ?? NAT JEREZ ?? Pt. Name: ?? SANDRITA SAN ? Acc #: ?[id number] ?Pt. MRN: ?[id number] ? Col Date: ?? 5 ? /Sex: ?1950,(64 years),Female ? Rec Date: ?? 02/23/2015 ? LOC: ?SDA ? SURGICAL PATHOLOGY ? Clinical History: ? Ovarian mass ? Clinical Diagnosis: ? Same Specimen (Source) Anatomical Collection Method Collection Time Re ceived Time Location / / Volume Laterality 02/23/2015 9:48 AM EDT Nat Jerez MD PATHOLOGY/CYTOLOGY ORDERABLE S Performing Organization Address City/State/[place] [address] [facility] Frozen Section Report (02/23/2015 9:48 AM EDT) Component Value Ref Test Analysis Performed At [facility] Method Time Signature Frozen CERNER Section ? [facility] ? Provider: ?? NAT JEREZ ?? Pt. Name: ?? SANDRITA SAN ? Acc #: ?[id number] ?Pt. MRN: ?[id number] ? Col Date: ?? 5 ? /Sex: ?1950,(64 years),Female ? Rec Date: ?? 02/23/2015 ? LOC: ?SDA ? FROZEN SECTION REPORT ? ---Frozen Section Report--- ? AFS - Right fallopian tube and ovary: ? 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 - JLG ? 02/23/15 10:10 ? 02/23/15 ??Verified by: ??Austen SHAFFER, Domo Blanco, Path ologist ? The attending [facility] whose electronic signature appears on this report ? has reviewed all diagnostic slides in rendering the f rozen section ? diagnosis. ? This intraoperative consultation should be interpreted as a preliminary ? diagnosis pending review of the e ntire specimen and special studies, if ? any. Specimen (Source) Anatomical Collection Method Collection Time Re ceived Time Location / / Volume Laterality 02/23/2015 9:48 AM EDT Nat Jerez MD PATHOLOGY/CYTOLOGY ORDERABLE S Performing Organization Address City/[facility]/ZIP Code Phon e Number [address] CERNER MILLENNIUM Specimen to Pathology (surgical or derm) (02/23/2015 9:47 AM EDT) Specimen Anatomical Collection Method Collection Time Receive d Time (Source) Location / / Volume Laterality AP Specimen 02/23/2015 9:47 AM 201 5 9:47 EDT AM EDT Narrative CERNER MILLENNIUM - 02/23/2015 9:47 AM E DT Specimen requisition ordered. ??Separate Pathology report to follow Nat Jerez MD PATHOLOGY/CYTOLOGY ORDERABLE S Performing Organization Address City/[facility]/ZIP [facility] Phon e Number [address] CERNER MILLENNIUM Ab Comment (02/23/2015 7:17 AM EDT) Component Value Ref Test Analysis Performed At [facility] Method Time Signature Ab Information INTERPRETATION: The patient' s serum has a barrios-agglutinin that reacts only with CERNER solid-phase antigens. ??No p an-agglutinin is detected when red cells in solution MILLENNIUM are used in the assay. ??The barrios-agglutinin detected is not clinically significant. Carly Olivas MD, PhD Transfusion Medicine Service 03/02/15 17:16 Comment: CARLY OLIVAS, Pathologist Verified:03/02/15 Specimen Anatomical Collection Method Collection Time Receive d Time (Source) Location / / Volume Laterality Blood specimen 02/23/2015 7:17 AM 015 7:38 (specimen) EDT AM EDT Resulting Agency Comment Spec In Lab Nat Jerez MD BLOOD BANK ORDERABLES Performing Organization Address City/[facility]/ZIP Code Phon e Number [address] CERNER MILLENNIUM Antibody identification (02/23/2015 7:17 AM EDT) Patholo gist Method Time Signature Ab Identified Panagglutinin CERNER MILLENNIUM Comment: 02/23/2015 11:20 ??MARXCR Panagglutinin in C-R testing only Specimen Anatomical Collection Method Collection Time Receive d Time (Source) Location / / Volume Laterality Blood specimen 02/23/2015 7:17 AM 015 7:38 (specimen) EDT AM EDT Resulting Agency Comment Spec In Lab Nat Jerez MD BLOOD BANK ORDERABLES Performing Organization Address City/[facility]/ZIP [place] [address] CERNER MILLENNIUM Antibody screen (02/23/2015 7:17 AM EDT) Analysis Performed At [facility] logist Time Signature Ab Screen Positive CERNER Interp MILLENNIUM Expires at [phone] CERBANNER 010 on: MILLENNIUM Specimen Anatomical Collection Method Collection Time Receive d Time (Source) Location / / Volume Laterality Blood specimen 02/23/2015 7:17 AM 015 7:38 (specimen) EDT AM EDT Resulting Agency Comment Spec In Lab Nat Jerez MD BLOOD BANK ORDERABLES Performing Organization Address City/[facility]/ZIP Code Phon e Number MISTY DANIELLE[address] CERNER MILLENNIUM ABO/Rh Typing (02/23/2015 7:17 AM EDT) athologist Signature ABORh Type O Pos CERNER MILLENNIUM Specimen Anatomical Collection Method Collection Time Receive d Time (Source) Location / / Volume Laterality Blood specimen 02/23/2015 7:17 AM 015 7:38 (specimen) EDT AM EDT Resulting Agency Comment Spec In Lab Nat Jerez MD BLOOD BANK ORDERABLES Performing Organization Address City/State/ZIP Code Phon e Number MISTY [address] CERNER MILLENNIUM Differential, Automated (02/23/2015 7:17 AM EDT) athologist Signature Neutrophils % 51.2 % CERNER MILLENNIUM Neutr Abs (ANC) 2.60 1.50 - CERNER 6.30 MILLENNIUM x10(3)/mcL Lymphocytes % 35.6 % CERNER MILLENNIUM Lymphocytes Abs 1.8 1.0 - 3.6 CERNER x10(3)/mcL MILLENNIUM Monocytes % 10.2 % CERNER MILLENNIUM Monocyte Abs 0.5 0.2 - 1.0 CERNER x10(3)/mcL MILLENNIUM Eosinophils % 2.2 % CERNER MILLENNIUM Eosinophils Abs 0.1 0.0 - 0.5 CERNER x10(3)/mcL MILLENNIUM Basophils % 0.6 % CERNER MILLENNIUM Basophils Abs 0.0 0.0 - 0.2 CERNER x10(3)/mcL MILLENNIUM Immature Gran % 0.20 % CERNER MILLENNIUM Comment: Immature granulocytes(IG's)percentage an d absolute count will include metamyelocytes, myelocytes, and promyelo cytes. Blood smears from CBCs yielding IG's will be scanned manually for concor dance. If this scan disagrees with the automated IG or if promyelocytes are not ed, a manual differential will be performed. Kelley Gran Abs 0.01 0.00 - 0.05 x10(3)/mcL CER NER MILLENNIUM Specimen Anatomical Collection Method Collection Time Receive d Time (Source) Location / / Volume Laterality Blood specimen 02/23/2015 7:17 AM 015 7:42 (specimen) EDT AM EDT Resulting Agency Comment Spec In Lab Nat Jerez MD HEMATOLOGY ORDERABLES Performing Organization Address City/[facility]/ZIP [place] [address] CERNER MILLENNIUM (ABNORMAL) Hemogram (02/23/2015 7:17 AM EDT) athologist Signature WBC 5.1 4.0 - 10.0 CERNER x10(3)/mcL MILLENNIUM RBC 4.42 3.93 - CERNER 5.22 MILLENNIUM x10(6)/mcL Hemoglobin 14.3 11.2 - CERNER 15.7 gm/dL MILLENNIUM Hematocrit 41.6 34.0 - CERNER 45.0 % MILLENNIUM MCV 94.1 (H) 79.0 - CERNER 94.0 fL MILLENNIUM MCH 32.4 (H) 26.6 - CERNER 32.2 pg MILLENNIUM MCHC 34.4 32.0 - CERNER 36.5 gm/dL MILLENNIUM Platelets 214 145 - 370 CERNER x10(3)/mcL MILLENNIUM RDWSD 40.7 35.0 - CERNER 46.0 fL MILLENNIUM RDWCV 12.1 10.9 - CERNER 14.4 % MILLENNIUM MPV 10.4 9.0 - 12.0 CERNER fL MILLENNIUM Specimen Anatomical Collection Method Collection Time Receive d Time (Source) Location / / Volume Laterality Blood specimen 02/23/2015 7:17 AM 015 7:42 (specimen) EDT AM EDT Resulting Agency Comment Spec In Lab Nat Jerez MD HEMATOLOGY ORDERABLES Performing Organization Address City/[facility]/ZIP [place] [address] CERNER MILLENNIUM Creatinine (02/23/2015 7:17 AM EDT) athologist Signature Creatinine 0.83 0.70 - 1.20 CERNER mg/dL MILLENNIUM Comment: Please note that the pediatric reference intervals supplied above were not validated at [facility] [place] [place]. Results from pediatri c patients should be interpreted in conjunction to the patient's age, height and muscle mass. Estimated GFR >60 >=60 SAHIL YOLANDATHADDEUS Charles Comment: This estimated GFR (eGFR) value was calc ulated using the MDRD equation which has been validated on patients between t he ages of 18 and 70. The MDRD should not be used to assess kidney function in patients < 18 years of age or in patients with extremes of body mass, or in patients with acute kidney failure. This value should be multiplied by 1.2 f or patients. For further information please copy and past e the following links into your internet browser. [email or web address]://[email or web address] [email or web address] Specimen Anatomical Collection Method Collection Time Receive d Time (Source) Location / / Volume Laterality Blood specimen 02/23/2015 7:17 AM 015 7:42 (specimen) EDT AM EDT Resulting Agency Comment Spec In Lab Nat Jerez MD CHEMISTRY ORDERABLES Performing Organization Address City/[facility]/ZIP Code Phon e Number [address] CERNER MILLENNIUM Antibody screen manual (02/23/2015 7:16 AM EDT) [facility] Screen Negative SUMANDONNY Interp MILLENNIUM Specimen Anatomical Collection Method Collection Time Receive d Time (Source) Location / / Volume Laterality Blood specimen Venous Draw / 02/23/2015 7:16 AM 2014 7:55 (specimen) Unknown EDT AM EDT Resulting Agency Comment Spec In Lab Da Zapata MD BLOOD BANK ORDERABLES Performing Organization Address City/[facility]/ZIP [facility] [place] [address] CERNER MILLENNIUM SCAN DOC: ECG (02/23/2015 12:00 AM EDT) Narrative This result has an attachment that is no t available. Scanning Provider MEDIA MGR SCAN EXT ORDR/RSLT documented in this encounter Visit Diagnoses Not on filedocumented in this encounter Administered Medications Inactive Administered Medications - up to 3 most recent administrations Medication Order MAR Action Action Date Dose Rate Site BUpivacaine (PF) (MARCAINE) 0.5 % Given 02/23/2015 9:56 AM EDT 1 0 mLs (5 mg/mL) injection ONCE PRN, Starting on Thu02/23/15 at 0956, Until Thu02/23/15 at 1836, Intra-Operative (Intra-Procedure), Routine documented in this encounter Active and Recently Administered Medications Times are shown in EDT. Continuous Medication Order 02/21/2015 02/22/2015 02/23/2015 lactated ringers infusion 1,000 mL (CANCELED) 0808 (New Bag - Provider: Soni Lopez RN)0836 (New Bag - Provider: Elvia Malcolm CRNA)1015 (New Bag - Provider: Elvia Malcolm CRNA)1059 (Anesthesia Volume Adjustment - Provider: Elvia Malcolm CRNA) 1,000 mL, at 100 mL/hr, Intravenous, CON TINUOUS, Starting Thu02/23/15 at 0815, Until Thu02/23/15 at 1836, Day of Surgery (Day of Procedure) 1200 (New Bag - Provider: Mariangel Agosto RN) PRN Medication Order 02/21/2015 02/22/2015 02/23/2015 acetaminophen (TYLENOL) tablet 650 mg (CANCELED) 1522 (Given - Provider: Mariangel Agosto RN) 650 mg, Oral, EVERY 6 HOURS PRN, Startin g Thu02/23/15 at 1043, Until Thu02/23/15 at 1836, Pain, Use acetaminophen first, Routine BUpivacaine (PF) (MARCAINE) 0.5 % (5 mg/mL) injection (CANCELED) 0956 (Given - Provider: Nat Jerez MD) ONCE PRN, Starting Thu02/23/15 at 0956, Until Thu02/23/15 at 1836, Intra- Operative (Intra-Procedure), Routine documented in this encounter Care Teams Explosion Welder Relationship Specialty Start Date End Date Sarita Valencia MD PCP - General 09/24/10 07/19/[address] [place] [id number] documented as of this encounter
--- OUTSIDE RECORDS SUMMARY | 2022-05-19 00:14 | XMS_ITS | Encounter Summary ---
:1950 Author Organization [facility] [place] [address] Care Team Providers Name Role Phone Sarita Valencia MD Primary Care Provider Reason for Visit Reason Comments Establish Care right ov cyst, PMB Encounter Details Date Type Department Care Team Description 01/25/2015 Office Visit Gynecology Oncology Doretha Jerez, Pe lvic mass in female at [facility] [address] [place] GYNECOLOGY [id number] ONCOLOGY [phone] [facility], [place] [address] Social History Tobacco Use Types Packs/Day Years Used Date Never Smoker Smokeless Tobacco: Never Used Sex Assigned at Date Recorded Not on file documented as of this encounter Last Filed Vital Signs Vital Sign Reading Time Taken Comments Blood Pressure 120/80 01/25/2015 9:57 AM EDT Pulse 80 01/25/2015 9:57 AM EDT Temperature 36.6 ??C (97.9 ??F) 01/25/2015 9:57 AM EDT Respiratory Rate 18 01/25/2015 9:57 AM EDT Oxygen Saturation 96% 01/25/2015 9:57 AM EDT Inhaled Oxygen Concentration - - Weight 71 kg (156 lb 8.4 oz) 01/25/2015 9:57 AM EDT Height 144.3 cm (4' 8.81) 01/25/2015 9:57 AM EDT Body Mass Index 34.1 01/25/2015 9:57 AM EDT documented in this encounter Progress Notes Ligia Dawson RN - 01/25/2015 1:05 PM EDT Met with Sandrita San and her after Dr. Jerez had explained plan of care to them to discuss pre-operative instructions and post operative expectations. Sandrita stated understanding that someone from the hospital will call her on the day before surgery to let her know the time of the surgery and what time she will need to be at the pre-surgical suite. Sandrita was instructed on clear liquid diet to start the day before surgery and to continue on the more restricted clear liquid diet after midnight until 2 hours prior to surgery. Sandrita also stated understanding to take magnesium citrate asa bowel prep in the morning on the day before surgery. She understands it is expected that she will be able to go home the same day as surgery. If a total abdominal hysterectomy is done the expected length of stay as inpatient in the hospital is 2-5 days. Explained pre and post op expectations that included, IVs, maynard catheter, diet restriction and advancement, incentive spirometry, intermittent compression devices, continuous pulse oximetry, frequency of vital signs and nursing assessments, advancement of activity postoperatively and goals that need to be met prior to discharge to home. Garth stated understanding. Sandrita was given the Gynecology Pre-Operative Instruction handout with the telephone number to call if any questions/concerns arise prior to her scheduled surgery date. Sandrita was also given a [employer] the [facility] Perioperative Care Program brochure. MET Doretha Jerez MD - 01/25/2015 10:40 AM EDT Division of Gynecologic Oncology Charlette Chavez MD [facility] Doretha Jerez MD [facility] [place] [address] New Outpatient Visit: Reason for visit :Sandrita San is being seen in the clinic today at the request of Sarita Key Md [address] [place] [address] for the evaluation of pelvic mass. I have reviewed the available records, interviewed and examined the patient. History of Present Illness: Sandrita San is a 64 y.o. female referred for evaluation of a pelvic mass. The patient has been followed by Dr. Valencia for concerns of unilateral left leg edema and groin pain. This started in April and at that time the patient had rD Dopplers were negative for DVT as well asa hip and pelvic x-ray. Given that this symptoms have persisted, Dr. Valencia ordered a pelvic ultrasound. This revealed a normal appearing uterus with a 2 mm stripe. The uterus measured 7.3 x 2.7 x 4.7cm. There were no uterine masses. The left ovary appeared grossly unremarkable. The right ovary measures 6.3 x 4.8 x 4.9 cm containing a 5.9 x 4.2 x 4.2 cyst within it. This contained nonvascular soft tissue along one edge of the cyst. There was no free pelvic fluid or hydronephrosis. This exam was dated 01-14. A followup was recommended in 4-5 weeks. On 01/03/[address] the patient [address] a CT scan of theabdomen and pelvis. This was done with oral and IV contrast. Her reveals a 1.65 cm cyst of the left lobe of the liver. A hypodense 1.6 cm right adnexal mass was seen. There is no abdominal or pelvic adenopathy or ascites. I do not see a CA 125 level any information provided. The patient notes that she has had groin pain and leg swelling on an doff for quite some time and that this became chornic last April. She had PT which helped with the pain in her joint but did not helpthe swelling. The welling now comes and goes. It is mainly the thigh, ankle, and inguinal crease. The swelling is not bad today. She does wear some suppot hose from time to time and this really elps with rody swelling. She has not had an evaluation by an orthopedist. 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 She has no leg numbness, just pain, it feels like a pressure and ache. CA125 is normal at 1.92. 7.6 cm round hypodense lesion in the right adnexa but nothing on the left side. The left ovary was grossly unremarkable measuring 2.5 cm.. There is no abdominal or pelvic adenopathy or ascites. Review of Systems: Review of Systems Respiratory: Negative for apnea, cough, chest tightness and shortness of breath. Cardiovascular: Positive for leg swelling. Negative for chest pain (left) and palpitations. Gastrointestinal: Positive for diarrhea (related to celiac disease). Negative for abdominal pain, blood in stool and abdominal distention. Endocrine: Negative. Genitourinary: Negative for hematuria, vaginal bleeding, difficulty urinating and pelvic pain. Musculoskeletal: Positive for back pain, arthralgias, neck pain and neck stiffness. Skin: Negative. Allergic/Immunologic: Positive for food allergies. Neurological: Negative for dizziness, seizures, syncope, numbness and headaches. Hematological: Negative. Psychiatric/Behavioral: Positive for dysphoric mood. Medical History: Past Medical History Diagnosis Date ??? Vitamin B 12 deficiency ??? 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 Rosacea ??? Hypothyroidism ??? Celiac disease ??? GERD (gastroesophageal reflux disease) ??? Hearing loss ??? Depression ??? 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 Heart murmur reports a normal ECHO Surgical History: Past Surgical History Procedure Laterality Date ??? Carpal tunnel release ??? section 1983 ??? Tonsillectomy ??? Finger trigger release ??? Cochlear implant ??? Cochlear implant Right 1995 umbrella prosthesis from the oval window to the tympanic membrane and precludes MRI ??? Knee arthroscopy Right Medications: Current Outpatient Prescriptions Medication Sig Dispense Refill ??? levothyroxine (SYNTHROID) 125 mcg Tablet Take 125 mcg by mouth daily. Thursday thru Thursday ??? levothyroxine (SYNTHROID) 150 mcg Tablet Take [...] daily and PRN No current facility-administered medications for this visit. Allergies: Allergies Allergen Reactions ??? Amoxicillin-Pot Clavulanate Other (See Comments) INTOLERANCE ??? Aspirin ??? Gluten Diarrhea ??? Ibuprofen Other (See Comments) stomach Obstetric History: . x 1, Csection x 1 for AOD/malpresentation. Gynecologic History/Health Maintenance: Menarche at age 14. Menopause at age 50. Used OCPs for 1 month. Denies HRT use. Recent postmenopausal bleeding/spotting. Has had regular Pap smear screening and did Have a few abnormals with repeats in the past and latelythey have all been normal. Mammograms are up to date and are wnl per the patient. Last colonoscopy = 2 weeks ago and polyp. Family History: Mother of colon cancer at age 49 but not sure if that was the primary site and there was concern for a large pelvic mass at the time of her surgery, she had had a prior hysterectomy. Father at 76 of CHF and alcoholism. Paternal aunt, all with breast cancers in their 50s but then all lived to 80s. Paternal aunt also had pancreatic cancer at age 90. Paternal GM of cancer in her 30s. Social History: reports that she has never smoked. She has never used smokeless tobacco. She is . She lives with her . 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 Physical Exam: Filed Vitals: 01/25/15 0957 BP: 120/80 Pulse: 80 Temp: 36.6 ??C (97.9 ??F) Resp: 18 Height: 144.3 cm (4' 8.81) Weight: 71 kg (156 lb 8.4 oz) SpO2: 96% Body mass index is 34.1 kg/(m^2). Body surface area is 1.69 meters squared. Physical Exam Constitutional: She appears well-developed and well-nourished. No distress. HENT: Head: Normocephalic. Eyes: Right eye exhibits discharge. Left eye exhibits no discharge (teary). No scleral icterus. Cardiovascular: Normal rate and regular rhythm. Exam reveals no gallop. Murmur heard. Pulmonary/Chest: Effort normal and breath sounds normal. No respiratory distress. She has no wheezes. She has no rales. Abdominal: Soft. She exhibits no distension and no mass. There is no tenderness. Genitourinary: Pelvic Exam: Normal external female genitalia with a normal pubic hair distribution. The Bartholin'sand Tiskilwa's glands are unremarkable. The urethra is without masses. The urethral meatus is without prolapse. The vagina is pale and mildly atrophic. There are no vaginal lesions. The cervix appears normal. Bimanual exam reveals a small anteverted mobile nontender uterus with a cystic pelvic mass whichappears to have a smooth wall and is posterior to the uterus and filling the posterior cul-de-sac. This is mobile and mildly tender to palpation. The rectovaginal exam confirms the above. the rectovaginal septum nodularity or thickening. The anal sphincter tone is normal and there are no rectal masses. The stool is grossly heme negative. Musculoskeletal: She exhibits no edema (There is no appreciable pitting edema in the left extremity during today's exam) or tenderness. Lymphadenopathy: She has no cervical adenopathy. Neurological: A cranial nerve deficit (There is a right facial palsy) is present. Coordination normal. Skin: Skin is warm and dry. No rash noted. No erythema. Psychiatric: She has a normal mood and affect. Her behavior is normal. GOG Performance Status: 0 Impression/Plan: Sandrita San is a 64 y.o. female seen for evaluation of an incidentally found to cystic/complex pelvic mass in the setting of contralateral pelvic/groin pain. Her physical exam confirms a cystic mass that fills the pelvis. Upon review of these findings with Sandrita San and her family, I explained that there are two potential management options for this mass. While the mass is technically complex due to the area of soft tissue density, the fact that this is not vascular and that there is a normal CA 125, no lymphadenopathy, and no ascites is somewhat reassuring. Thus, one option would be to doa repeat surveillance interval image to see if this is changing with time. Benign masses would be unl ikely to increase in size over time. The second option, in order to make a definitive diagnosis, would be surgical excision. I explained that given her somewhat suspect family history, I would feel more inclined to recommend removal of this mass at this time. That is in fact Sandrita's inclination as well and the remainder of our visit was spent in discussion of surgical management. We discussed removal of the pelvic mass with a laparoscopic approach and again, given the concern for a possible BRCA mutation based on her family history, we discussed bilateral salpingo-oophorectomy as well. During the course of obtaining informed consent, I explained that the goal of surgery is twofold. First, it would allow us to remove the mass and obtain a frozen section for diagnosis and second it would allow for surgical staging if in fact this is a cancer. I also reviewed the many possible benign or borderline masses that this might represent. The risks of bleeding, infection, damage to surrounding organs, including but not limited to, the bowel, bladder, ureters and blood vessels, and DVT/PE were also reviewed with the patient and her family. At the conclusion of our visit all of her questions were answered and she verbalized understanding of the nature of her condition and the plan ofcare that was outlined. Surgical exploration with pelvic mass excision, both tubes and ovaries via laparoscopy. Possible open surgery, possible staging, possible IP port. Additionally, given the multiple breast cancers on her paternal side as well as a possible gynecologic cancer in her mother at a rather young age, we discussed genetic counseling and discussion about BRCA mutation testing. She is amenable to this and a referral will be made. Finally, I discussed that it is very unlikely that removal of her contralateral pelvic mass will have an impact on her pelvic pain or left leg swelling. It may be reasonable for her to see an orthopedist to consider further evaluation of her hip if that pain persists. I will of course leave this to the discretion of her and her primary care physician. Advance Directives: Lastly, Sandrita San does not have any advance directives on file. The purpose of advance directives were reviewed with her and her family and she was provided with the state-specific booklet to complete these. I have asked that she bring a completed copy to her next visit so that it may be scanned into our system. Thank you for referring this shan patient to [facility] for her cancer care. I will keep you apprised ofher progress. Doretha Jerez MD documented in this encounter Miscellaneous Notes Advance Care Plan Note - Doretha Jerez MD - 01/25/2015 6:38 PM EDT Sandrita does not have an advanced directive. She was provided with the [facility] booklet. In the meantime, she notes that her and her son would be her durable eason of criminal defense attorney for healthcare. documented in this encounter Plan of Treatment Not on filedocumented as of this encounter Visit Diagnoses Diagnosis Pelvic mass in female Abdominal or pelvic swelling, mass or esther mp, unspecified site documented in this encounter Care Teams Fleet Manager Relationship Specialty Start Date End Date Sarita Valencia MD PCP - General 09/24/10 07/19/18 [address] [place] [address] documented as of this encounter
--- OUTSIDE RECORDS SUMMARY | 2022-05-19 00:14 | XMS_ITS | Encounter Summary ---
:1950 Author Organization [facility] [place] [address] Care Team Providers Name Role Phone Sarita Valencia MD Primary Care Provider Encounter Details Date Type Department Care Team Description 02/06/2015 Hospital Encounter Same Day Admit Doretha Jaramillo Hitchcock MD [facility] [place] [address] GYNECOLOGY ONCOLOGY [phone] [place] [id number] (Wo rk) Social History Tobacco Use Types Packs/Day Years Used Date Never Smoker Smokeless Tobacco: Never Used Sex Assigned at Date Recorded Not on file documented as of this encounter Last Filed Vital Signs Vital Sign Reading Time Taken Comments Blood Pressure 135/58 02/06/2015 11:27 AM EDT Pulse 81 02/06/2015 11:27 AM EDT Temperature 36.6 ??C (97.9 ??F) 02/06/2015 10:54 AM EDT Respiratory Rate 16 02/06/2015 11:27 AM EDT Oxygen Saturation 98% 02/06/2015 11:27 AM EDT Inhaled Oxygen Concentration - - Weight - - Height - - Body Mass Index - - documented in this encounter Discharge Instructions Discharge InstructionsMaryanne Hernandez RN - 02/06/2015 11:19 AM EDT POST ANESTHESIA INSTRUCTIONS Go home, [...] soreness, which usually goes away in 12-24 hours. Patient InstructionsDaLakesha lópez MD - 02/06/2015 11:23 AM EDT PATIENT DISCHARGE INSTRUCTIONS Gynecology Oncology phone number: [phone] You will be called to arrange follow-up and consultation with the ENT department. documented in this encounter Medications at Time [...] glycol 0 12/26/201409/07 (MIRALAX) 17 gram/dose Powder levothyroxine (SYNTHROID) Take 125 mcg by 0 09/07/2015 125 mcg Tablet mouth daily. Thursday thru Thursday levothyroxine (SYNTHROID) Take 150 mcg by 0 07/20/2018 150 mcg Tablet mouth as needed. Thursday and Thursday documented as of this encounter Progress Notes Doretha Jerez MD - 02/06/2015 6:22 PM EDT Telephone call: Reviewed course of events with the patient. Anesthesia was unable to place an ET tube after 6 attempts with the glide scope and ultimately surgery was aborted. Concern was raised for nodules on the vocal cords and a very narrow vocal cord aperture. It was suggested that the patient be seen by ENT to further evaluate this finding and also to have their input if a subsequent intubation attempt is made. I reviewed the following options with the patient again in regards to this mass: 1) surgical excision for definitive diagnosis -either laparoscopically if GETA is able to be established either with a nasal intubation or ENT assistance -via an open approach with a spinal anesthetic 2) surveillance with serial imaging as previously discussed. Sandrita wishes to think it over and will let me know of her decision. She is interested in seeing ENTin the meantime and a referral will be made. Maryanne Hernandez RN - 02/06/2015 12:13 PM EDT p tawake. C/o sore throat. Relieved with ice water. No n/v. Family into room. D/c info complete. Just general anesthesia info. Family without concerns. HL outx2. Pt oob to br. Gait steady. Voided without problem. Pt dressed. Transported to . Family will take pt to car. Will call if concerns arise. Dr Salinas came to discuss airway issues withpt and family. Plan formulated to attempt surgery in thefuture. Family left in . No concerns at this time. documented in this encounter H&P Notes Lakesha Kim MD - 02/06/2015 9:11 AM EDT Inpatient SIMULATION ENGINEER - Admission Interval Note I have reviewed the pre-procedure H&P completed by Dr. Jerez on 01/25/2015. (X) Condition unchanged since H&P originally performed. Pt feels well, ready for surgery. Continues to have mild LLQ pain. BP 109/53 Pulse 63 Temp(Src) 36.3 ??C (97.3 ??F) (Temporal) Resp 16 SpO2 100% Gen: AAOx3, NAD, appears comfortable Cardio: nl rhythm, S1, S2, no M/C/R/G Pulm: CTA BL, no W/C/R Abd: +BS, soft, NT, ND Pelvic: deferred to OR Ext: warm, well-perfused Will proceed as planned. -No pre-op abx indicated -SCD's Lakesha Kim MD 02/06/2015 Associated attestation - Doretha Jerez MD - 02/06/2015 10:18 AM EDT I have seen and examined the patient and reviewed and edited the resident's above history and I agree with the details as written. The assessment and plan were formulated in discussion with me and I agree with them as documented. Doretha Jerez MD documented in this encounter Miscellaneous Notes Op Note - Lakesha Kim MD - 02/06/2015 11:25 AM EDT [facility] [place]ative [place] Patient Name: Sandrita San : [id number] MR#: [id number] Case Date: 02/06/2015 Surgeon: Surgeon(s) and Role: * Doretha Jerez MD - Primary * Lakesha Kim MD Preoperative diagnosis: OVARIAN CYST Postoperative diagnosis: case aborted due to airway difficulty and inability to establish general anesthesia To be re-scheduled following ENT consultation. Lakesha Kim MD 02/06/2015 Brief Op Note - Doretha Jerez MD - 02/06/2015 10:35 AM EDT Brief Operative Note Patient Name: Sandrita San : [id number] MR#: [id number] Case Date: 02/06/2015 Surgeon: Surgeon(s) and Role: * Doretha Jerez MD - Primary * Lakesha Kim MD Preoperative diagnosis: OVARIAN CYST Postoperative diagnosis: * No post-op diagnosis entered * Procedure(s): CASE aborted due to airway difficulty and inability to establish general anesthesia. documented in this encounter Plan of Treatment Not on filedocumented as of this encounter Visit Diagnoses Not on filedocumented in this encounter Administered Medications Inactive Administered Medications - up to 3 most recent administrations Medication Order MAR Action Action Date Dose Rate Site acetaminophen (TYLENOL) tablet 650 Given 02/06/2015 9:15 AM EDT 650 mg mg 650 mg, Oral, ONCE, 1 dose, On Thu02/06/15 at 0915, Maximum dose of acetaminophen is 4000 mg from all sources in 24 hours., Day of Surgery (Day of Procedure), Routine gabapentin (NEURONTIN) capsule 600 mg Given 02/06/2015 9:15 AM EDT 600 mg 600 mg, Oral, ONCE, 1 dose, On Thu02/06/15 at 0915, Day of Surgery (Day of Procedure), Routine lactated ringers infusion 1,000 mL New Bag 02/06/2015 10:42 AM EDT 1,000 mL, at 100 mL/hr, Intravenous, CONTINUOUS, Starting on Thu02/06/15 at 0915, Until Thu02/06/15 at 1213, Day of Surgery (Day of Procedure) New Bag 02/06/2015 9:15 AM EDT 1,000 mLs 100 mL/hr documented in this encounter Active and Recently Administered Medications Times are shown in EDT. Scheduled Medication Order 02/04/2015 02/05/2015 02/06/2015 acetaminophen (TYLENOL) tablet 650 mg (COMPLETED) 914 (Given - Provider: Suzy Horan RN) 650 mg, Oral, ONCE, 1 dose, e 02/06/15 a t 0915, Maximum dose of acetaminophen is 4000 mg from all sources in 24 hours., Day of Surgery (Day of Procedure), Routine gabapentin (NEURONTIN) capsule 600 mg (COMPLETED) 914 (Given - Provider: Suzy Horan RN) 600 mg, Oral, ONCE, 1 dose, Thu02/06/15 a t 0915, Day of Surgery (Day of Procedure), Routine Continuous Medication Order 02/04/2015 02/05/2015 02/06/2015 lactated ringers infusion 1,000 mL (CANCELED) 0915 (New Bag - Provider: Celia Ulrich RN)1042 (New Bag - Provider: Erin Grady MD) 1,000 mL, at 100 mL/hr, Intravenous, CON TINUOUS, Starting 02/06/15 at 0915, Until 02/06/15 at 1213, Day of Surgery (Day of Procedure) documented in this encounter Care Teams Rod Greaser Relationship Specialty Start Date End Date Sarita Valencia MD PCP - General 09/24/10 07/19/18 [address] [place] [address] documented as of this encounter
--- OUTSIDE RECORDS SUMMARY | 2022-05-19 00:14 | XMS_ITS | Encounter Summary ---
:1950 [place] [address] Care Team Providers Name Role Phone Sarita Valencia MD Primary Care Provider Reason for Visit Reason Comments Other Encounter Details Date Type Department Care Team Description 03/09/2015 Telephone [place] [facility]tha Jerez MD [facility] [place] [address] GYNECOLOGY ONCOLOGY [phone] [place] [phone] (Wo rk) Social History Tobacco Use Types [...] this encounter Miscellaneous Notes Telephone Encounter - Doretha Jerez MD - 03/09/2015 10:48 AM EDT Relayed results. Recommend surveillance exams. Doing well. 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 2 - Fallopian tube without histopathological abnormality. 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 2 - Fallopian tube without histopathological abnormality. GYNTMRBLK-OV: B2,B3 GYNNRL-OV: _ TNM Staging (AJCC, 7th ed., 2009): Primary tumor stage: pT1b [IB] (Tumor limited to both ovaries; capsule intact; no tumor on ovarian surface; no tumor cells in ascites Regional lymph nodes: pNX (Cannot be assessed) Distant metastasis: pMX (Not applicable or not assessed) documented in this encounter Plan of Treatment Not on filedocumented as of this encounter Visit Diagnoses Not on filedocumented in this encounter Care Teams Habilitation Specialist Relationship Specialty Start Date End Date Sarita Valencia MD PCP - General 09/24/10 07/19/18 [address] [place] [address] documented as of this encounter
--- OUTSIDE RECORDS SUMMARY | 2022-05-19 00:14 | XMS_ITS | Encounter Summary ---
:1950 Author Organization [facility] [place] [address] Care Team Providers Name Role Phone Sarita Valencia MD Primary Care Provider Encounter Details Date Type Department Care Team Description 02/23/2015 Hospital Encounter Same Day Admit Nat Jaramillo and Bettye Coles MD unspecified ovarian [facility] [address] [place], [place] GYNECOLOGY [id number] ONCOLOGY [phone] [place] [address] Social History Tobacco Use Types Packs/Day Years [...] PATIENT DISCHARGE INSTRUCTIONS Gynecology Oncology phone number: [phone] Call your doctor if you develop: --A [...] with Dr. Jerez for postoperative visit - [facility] Quality Assurance Analyst/Oncology [id number] documented in this encounter Medications at Time [...] Take 1-2 tablets by 20 tablet 0 04 / 09/07/2015 mg Tablet mouth every 4 hours [...] her chart from he last visit to [facility]. 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 Nat Jerez MD documented in this encounter Miscellaneous Notes Op Note - Nat Jerez MD - 02/23/2015 10:50 AM EDT Images from the original note were not included. [facility] Operative Note Patient Name: Sandrita San : [id number] MR#: [id number] Case Date: 02/23/2015 Surgeon: Surgeon(s) and Role: [...] sterile fashion in dosal lithotomy position in [facility]. A timeout was performed with all members of the team in agreement. A maynard catheter was inserted into the bladder and drained clear urine. A speculum was placed in thevagina and the anterior lip of the cervix was grasped horizontal fashion with the single toothed tenaculum. Cervix was dilated to #13 Jordanian with the William-Pimentel dilators. The Valtchev uterine [...] instrument counts were not performed as per [facility] OR policy. The patient was awakened from anesthesia and taken to therecovery room in stable condition postoperatively. There were no complications. Dr. Jerez, attending physician was present for the entire procedure without conflicting clinical responsibility. Da Zapata MD, PGY4 Da Zapata MD 02/23/2015 I, Nat Jerez MD, attest that I performed this surgery with the assistance of a resident. I was present and participated in the entire surgery, from start to finish, as the primary and attending surgeon of record. Brief Op Note - Nat Jerez MD - 02/23/2015 10:35 AM EDT Brief Operative Note Patient Name: Sandrita San : [id number] MR#: [id number] Case Date: 02/23/2015 Surgeon: Surgeon(s) and Role: [...] Khoury MD - 02/23/2015 10:17 AM EDT [facility] Operative Note Patient Name: Sandrita San : [id number] MR#: [id number] Case Date: 02/23/2015 Surgeon: Surgeon(s) and Role: [...] when she extends her tongue. A 6.0 TENANT SELECTOR was passed in the glottis and then [...] procedure are i n the results section. 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 FINAL REPORT Routine 02/23/2015 10:04 Res ults [...] Yes 02/23/2015 8:41 AM OVARIAN MASS MICROSCOPE (VU 2.57) EDT @SALPINGO-OOPHORECTOMY, Yes 02/23/2015 8:41 AM OVARIAN MAS S UNILATERAL [facility] LAPAROSCOPY, REMOVAL OF Yes 02/23/2015 8:41 AM OVARIAN MAS S ADNEXA (VU 11.35) EDT AB COMMENT Routine 02/23/2015 7:17 [...] TYPE AND SCREEN Routine 02/23/2015 7:17 AM ([facility]/JESUS/LINDA) EDT ANTIBODY SCREEN MANUAL Routine 02/23/2015 7:16 [...] 02/23/2015 AM EDT 10:14 AM EDT Narrative [facility] - 02/23/2015 10:14 AM EDT Specimen requisition ordered. ??Separate Pathology report to follow Nat Jerez MD PATHOLOGY/CYTOLOGY ORDERABLE S Performing Organization Address City/State/ZIP [place] [address] [facility] Non-Quality Assurance Analyst Final Report (02/23/2015 10:04 AM EDT) Component Value Ref Test Analysis Performed At [facility] gist Range Method Time Signature Non-Quality Assurance Analyst Final [facility] Report ? [facility] ? Provider: ?? NAT JEREZ ?? Pt. Name: ?? SANDRITA SAN ? Acc #: ?[id number] ?Pt. MRN: ?[id number] ? Col Date: ?? 5 ? /Sex: [...] MD PATHOLOGY/CYTOLOGY ORDERABLE S Performing Organization Address City/[facility] [address]/ZIP Code Phon e Number [address] [facility] Cytopathology Non-Gynecological (02/23/2015 10:04 AM EDT) Specimen Anatomical Collection Method Collection Time Receive d Time (Source) Location / / Volume Laterality AP Specimen 02/23/2015 10:04 02/23/2015 AM EDT 10:04 AM EDT Narrative [facility] - 02/23/2015 10:04 AM EDT Specimen requisition ordered. ??Separate Pathology report to follow Nat Jerez MD PATHOLOGY/CYTOLOGY ORDERABLE S Performing Organization Address City/[facility] [address]/ZIP Code Phon e Number [address] [facility] Surgical Pathology Report (02/23/2015 9:48 AM EDT) Component Value Ref Test Analysis Performed At [facility] Range Method Time Signature Surgical [facility] Path[facility] ? [facility] Report ? Provider: ?? NAT JEREZ ?? Pt. Name: ?? SANDRITA SAN ? Acc #: ?[id number] ?Pt. MRN: ?[id number] ? Col Date: ?? 5 ? /Sex: [...] microscopic description not recorded . ? [id number] ? [facility] ? Provider: ?? NAT JEREZ ?? Pt. Name: ?? SANDRITA SAN ? Acc #: ?[id number] ?Pt. MRN: ?[id number] ? Col Date: ?? 5 ? /Sex: [...] ? adherent to ovarian cyst. ? SECTIONS/PROCESSING: Plate Glass Installer Helper section submitted for frozen section ? AFS1, [...] B - Left tube and ovary ? [facility] ? Provider: ?? NAT JEREZ ?? Pt. Name: ?? SANDRITA SAN ? Acc #: ?[id number] ?Pt. MRN: ?[id number] ? Col Date: ?? 5 ? /Sex: [...] Organization Address City/State/[place] [address] [facility] Frozen Section Report (02/23/2015 9:48 AM EDT) Component Value Ref Test Analysis Performed At [facility] gist Range Method Time Signature Frozen CERNER Section ? [facility] Report ? Provider: ?? NAT JEREZ ?? Pt. Name: ?? SANDRITA SAN ? Acc #: ?[id number] ?Pt. MRN: ?[id number] ? Col Date: ?? 5 ? /Sex: [...] Domo Blanco, Path ologist ? [facility] whose electronic signature appears on this report [...] Organization Address City/State/[place] [address] [facility] Specimen to Pathology (surgical or derm) (02/23/2015 9:47 AM EDT) Specimen Anatomical Collection Method Collection Time Receive d Time (Source) Location / / Volume Laterality AP Specimen 02/23/2015 9:47 AM 5 9:47 EDT AM EDT Narrative [facility] - 02/23/2015 9:47 AM E DT Specimen requisition ordered. ??Separate Pathology report to follow Nat Jerez MD PATHOLOGY/CYTOLOGY ORDERABLE S Performing Organization Address City/[facility] [address]/[facility] [place] [address] [facility] Ab Comment (02/23/2015 7:17 AM EDT) Component Value Ref Test Analysis Performed At [facility] Range Method Time Signature Ab Information INTERPRETATION: [...] MD BLOOD BANK ORDERABLES Performing Organization Address City/[facility] [address]/ZIP Code Phon e Number [address] [facility] Antibody identification (02/23/2015 7:17 AM EDT) [facility] gist Method Time Signature Ab Identified Panagglutinin [facility] Comment: 02/23/2015 11:20 ??MARXCR Panagglutinin in C-R testing only Specimen Anatomical Collection Method Collection Time Receive d Time (Source) Location / / Volume Laterality Blood specimen 02/23/2015 7:17 AM 015 7:38 (specimen) EDT AM EDT Resulting Agency Comment Spec In Lab Nat Jerez MD BLOOD BANK ORDERABLES Performing Organization Address City/[facility] [address]/Z[place] [address] [facility]ILL[facility] Antibody screen (02/23/2015 7:17 AM EDT) Analysis Performed At [facility] logist Time Signature Ab Screen Positive [facility] Inter MILLENNIUM Expires at [id number] [facility] 529 on: MILLENNIUM Specimen Anatomical Collection Method Collection Time Receive d Time (Source) Location / / Volume Laterality Blood specimen 02/23/2015 7:17 AM 015 7:38 (specimen) EDT AM EDT Resulting Agency Comment Spec In Lab Nat Jerez MD BLOOD BANK ORDERABLES Performing Organization Address City/State/[place] [address] [facility] ABO/Rh Typing (02/23/2015 7:17 AM EDT) P athologist Signature ABORh Type O Pos [facility] Specimen Anatomical Collection Method Collection Time Receive d Time (Source) Location / / Volume Laterality Blood specimen 02/23/2015 7:17 AM 015 7:38 (specimen) EDT AM EDT Resulting Agency Comment Spec In Lab Nat Jerez MD BLOOD BANK ORDERABLES Performing Organization Address City/State/ZIP [place] [address] [facility]ILL[facility] Differential, Automated (02/23/2015 7:17 AM EDT) P athologist Signature Neutrophils % 51.2 % CERNER [...] Jerez MD HEMATOLOGY ORDERABLES Performing Organization Address City/[facility] [address]/[place] [address] [facility]ER MILLENNIUM (ABNORMAL) Hemogram [...] Volume Laterality Blood specimen 02/23/2015 7:17 AM 7:42 (specimen) EDT AM EDT Resulting Agency Comment Spec In Lab Nat Jerez MD HEMATOLOGY ORDERABLES Performing Organization Address City/[facility] [address]/Z[place] [address] [facility] Creatinine (02/23/2015 7:17 AM EDT) athologist Signature Creatinine 0.83 0.70 - 1.20 CERNER mg/dL [facility] Comment: Please note that the pediatric reference intervals supplied above were not validated at [facility]. Results from pediatri c patients should be interpreted in conjunction to the patient's age, height and muscle mass. Estimated GFR >60 >=60 SAHIL GUERREROALCIDESERLINDA Soto Comment: This estimated GFR (eGFR) value was [...] the following links into your internet browser. [email or web address] Specimen Anatomical Collection Method Collection Time Receive d Time (Source) Location / / Volume Laterality Blood specimen 02/23/2015 7:17 AM 015 7:42 (specimen) EDT AM EDT Resulting Agency Comment Spec In Lab Nat Jerez MD CHEMISTRY ORDERABLES Performing Organization Address City/[facility] [address]/ZIP Code Phon e Number [address] C[facility]ER MILLENNI[facility] Antibody screen manual (02/23/2015 7:16 AM EDT) Analysis Performed At Patho logist Time Signature AB Screen Negative [facility] Inter MILLENNIUM Specimen Anatomical Collection Method Collection Time Receive d Time (Source) Location / / Volume Laterality Blood specimen Venous Draw / 02/23/2015 7:16 AM 2014 7:55 (specimen) Unknown EDT AM EDT Resulting Agency Comment Spec In Lab Da Zapata MD BLOOD BANK ORDERABLES Performing Organization Address City/[facility] [address]/[facility] Phon e Number [address] [facility] SCAN DOC: ECG (02/23/2015 12:00 AM EDT) Narrative This result has an attachment that is no t available. Scanning Provider MEDIA MGR SCAN EXT ORDR/RSLT documented in this encounter Visit Diagnoses Diagnosis Other and unspecified ovarian cyst documented in this encounter Administered Medications Inactive Administered Medications - up to 3 most recent administrations Medication Order MAR Action Action Date Dose Rate Site acetaminophen (TYLENOL) tablet 650 Given 02/23/2015 3:22 PM EDT 650 mg mg 650 mg, Oral, EVERY 6 HOURS PRN, Starting on Thu02/23/15 at 1043, Until Thu02/23/15 at 1836, Pain, Use acetaminophen first, Routine lactated ringers infusion 1,000 New Bag 02/23/2015 12:00 PM ED T 1,000 mLs 100 mL/hr mL 1,000 mL, at 100 mL/hr, Intravenous, CONTINUOUS, Starting on Thu02/23/15 at 0815, Until Thu02/23/15 at 1836, Day of Surgery (Day of Procedure) New Bag 02/23/2015 10:15 AM EDT New Bag 02/23/2015 8:36 AM EDT documented in this encounter Active and Recently [...] Routine documented in this encounter Care Teams Pre Billing Specialist Relationship Specialty Start Date End Date Sarita Valencia MD PCP - General 09/24/10 07/19/18 [address] [place] [address] documented as of this encounter
--- OUTSIDE RECORDS SUMMARY | 2022-05-19 00:14 | XMS_ITS | Encounter Summary ---
:1950 [place] [address] Care Team Providers Name Role Phone Sarita Valencia MD Primary Care Provider Encounter Details Date Type Department Care Team Description 02/23/2015 Anesthesia Event Main Operating Room Maulik Lima MD [facility] ANESTHESIOLOGY [id number] [place] [address] [phone] Anesthesia Record Procedure Summary Procedure Name Responsible Anesthesia Start Anesthesia Stop Time Anesthesiologist Time LAPAROSCOPY, Maulik Sr MD 02/23/15 0840 02/23/15 111 6 REMOVAL OF ADNEXA (WRVU 11.35) (N/A Abdomen) Events Date Time Event Comment 02/23/2015 0817 0836 AN Verify 0840 Start 0841 An Start Data 0842 An Induction 0854 An Intubation Awake FOB intuba tion notes: (please also see airway intraop d ocumentation) Preop same day area: Afrin 2-3 squirt s luzmaria nare Face mask nebulizer c 8mL 4% lidocaine Dexmedetomidine bolus (0.5mcg/kg) over 10 min-gtt to follow at 0.7mcg/kg/hr 5% lidocaine paste to luzmaria piriform fossa and surrounding area Atomizer 0.5mL 4% lidocaine to luzmaria nares Atomiz er 2mL 4% lidocaine to luzmaria piriform fossa M idazolam 1mg x2 In OR: Done on stretcher in sit ting position. Unable to pass nasal airways Pr oceeded to a successful R nare FOB. Facilitated by pt sticking tongue out. Some resistance with passage of 6 SLAB STRIPPER ETT in pharynx, but eventually p assed with twisting of well lubricated tube. Successful placement confirmed visually and EtC O2 and auscultation. Patient tolerated extrem gerhard well. [address] Brennen issa declined periop antibiotics 0930 Procedure Start 0932 Quick Note Surgeon injectio n of local (plain); abdominal insufflation 1028 Procedure Stop 1105 Extubation/LMA Out Extubation no ariella: SV c TV 330-400 RR 9-12. Pt opening eyes, gr ips luzmaria hands, lifting head off pillow, very grady m and cooperative, HOB elevated (on stretcher). ETT out c PP s/p deep pharyngeal suctioning. SV r esumed, O2 via FM. VSS. Transported to [facility]. 1107 an stop data 1116 Stop Arrived to [facility], Monitors attached, VSS, O2 via FM, ventilat ing well. Reported SBAR to nurse. Pt appropriate. Care Transferred. Name Total Midazolam 2 mg fentaNYL 125 mcg Propofol 130 mg Rocuronium 25 mg PHENYLephrine 400 mcg ePHEDrine 10 mg Ondansetron 8 mg Dexamethasone 8 mg Glycopyrrolate 0.5 mg Dexmedetomidine INF 78.91 mcg Dexmedetomidine 38 mcg lidocaine 8 mL HYDROmorphone 0.4 mg PHENYLephrine 3 spray lactated ringers infusion 1,000 mL 1,200 mL Agents Name O2 Air Sevoflurane (et) O2 Auxiliary Flowmeter 1 Blood No blood administrations on file. Lines, Drains, and Airways Type Details Placement Removal Incision 02/23/15; abdomen; 02/23/15 0000 by laparoscopic punctures Yisel Wilson RN (specify) Incision 02/23/15; vagina 02/23/15 0000 by Yisel Wilson, LIONEL ETT Mask Ventilation: 02/06/15 1003 by 02/23/15 1105 by Difficult (3) (OK with Erin Grady Tayl or, Elvia A, airq 3.5 or unique #3 MD BILLINGS lma); Exchange: FOB (Also grade 4 with initial approach of FOB, but able to angle FOB under what appeared to be epiglottis and had a grade 1 view but unable to pass ETT successfully.); Indirect:Video; Attempts: >3; Laryngoscopy Grade: 4; Inserted by: (Attempts by Brad Grady and Nancy without success. Vey narrow mouth and glottic opening. Grade 4 with initial glide. Unable to ventilate through oral airway (green or yellow). Ventilation OK with airq 3.5 and unique LMA 3) Supraglottic Mask Ventilation: 02/06/15 1003 by 02/23/15 1105 by Difficult (3) (LMA Erin Grady Taylor, Nicole A, required for ventilation; MD BILLINGS unable to MV with one or two people, even with oral airway.); LMA Type: Unique, air-Q (unique 3.5 provided good ventilation ability but unable to get a good view with FOB via air-q; exchanged for unique LMA and still no view but able to ventilate via unique 3); Inserted by: Arnoldo/Brad PIV 02/06/15; 1043; metacarpal 02/06/15 1043 by 01/31 04/19 0921 by vein right (top of hand); Erin Grady E pic, User [id number] catheter MD system; 16 gauge; arnoldo; 02/15/18 (Auto removal via utility); 0921 (Auto removal via utility) ETT 02/06/15 1056 by 02/23/15 1105 b Maude Sewell MD Taylor, Ni cole A, AWA PIV 02/23/15; 0808; metacarpal 02/23/15 0808 by 02/01 02/14 1525 by vein right (top of hand); Soni Lopez RN Lynde, Della R, RN [id number] catheter system; 20 gauge, 1 in length; T John; distraction, tolerated well; 0; 02/23/15; 1525 ETT Mask Ventilation: Not 02/23/15 0854 by 02/23/15 1105 by Attempted (0); ETT Type: Elvia Malcolm, Elvia Breen, Cuffed, SLAB STRIPPER, Nasal (R ENGINE REPAIRER PRODUCTION nare); ETT Size: 6 mm; Exchange: FOB; Indirect:Video; Notes: Awake, Pre-O2 (in sitting position. Please see intraop doc on ' airway event' for more details); Attempts: 1; Laryngoscopy Grade: 1; ETT Placement Verified By: Auscultation, Capnometry, Visual; Secured at Teeth: 23 cm (at nare); Intubation Injury: Soft Tissue; Inserted by: minor heme noted in pharyns post intubion during confirmation c bronch NG/OG Tube 02/23/15; 09; 02/23/15 09 by 02/23/15 1036 b y orogastric; 18 Fr; mouth; Elvia Malcolm, Elvia Breen, 02/23/15; 1036 ENGINE REPA[employer]ER [employer]ODUCTION Urethral Catheter 02/23/15; 939; 02/23/15 09 by 02/23/15 1036 by Genitourinary surgery; Yisel Wilson, RN Edward Yisel lozada, indwelling double lumen RN catheter; 100% silicone; 16; inserted at this facility; 1; 10; none; drainage bag to dependent drainage; urethral catheter removed, tubing intact; 02/23/15; 1036 documented in this encounter Social History Tobacco Use Types Packs/Day Years [...] on file documented as of this encounter OR Notes Anesthesia Postprocedure Evaluation - Maulik Sr MD - 02/23/2015 3:11 PM EDT Patient: Sandrita San Procedure(s) Performed: Procedure(s): LAPAROSCOPY, REMOVAL OF ADNEXA @SALPINGO-OOPHORECTOMY, UNILATERAL OR LUZMARIA LARYNGOSCOPY, WITH MICROSCOPE Actual Anesthetic: general Patient location: PACU Post-op pain: Adequate analgesia Post-op nausea: no nausea or vomiting Last Vitals: Filed Vitals: 02/23/15 1332 BP: 104/58 Pulse: 71 Temp: Resp: 18 Post-op cardiovascular and respiratory status: is stable Level of consciousness: awake, alert and oriented Complications: no apparent complications and tolerated the procedure well, very appreciative of her care, does not remember much of the awake fiberoptic intubation Fluid Status: normal Anesthesia Preprocedure Evaluation - Maulik Sr MD - 02/23/2015 8:12 AM EDT Pre-Anesthesia Evaluation for: Sandrita San a 64 y.o. female. Procedure(s): LAPAROSCOPY, REMOVAL OF ADNEXA @LYMPHADENECTOMY, LIMITED FOR STAGING, RETROPERITONEAL @SALPINGO-OOPHORECTOMY, UNILATERAL OR LUZMARIA Patient Active Problem List Diagnosis ??? DIFFICULT AIRWAY Unable to mask ventilate with one or two hands, even with an oral airway. Able to ventilate with Air-q(brand) LMA 3.5 or Unique (brand) LMA 3, but unable to pass tube over fiber-optic scope. Grade 4 view with glidescope (video laryngoscope). Poor view (grade 4) with fiber optic bronchoscope without ma nipulation/angling of FOB tip under epiglottis. Glottic opening is narrow and mouth opening is small. Consider spinal anesthetic when appropriate, awake intubation or ENT consult for intubation. ??? Vitamin B 12 deficiency ??? 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 Rosacea ??? Hypothyroidism ??? Celiac disease ??? Hearing loss ??? Depression ??? 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 Heart murmur reports a normal ECHO Past Medical History Diagnosis Date ??? Vitamin B 12 deficiency ??? 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 Rosacea ??? Hypothyroidism ??? Celiac disease ??? GERD (gastroesophageal reflux disease) ??? Hearing loss ??? Depression ??? 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 Heart murmur reports a normal ECHO Past Surgical History Procedure Laterality Date ??? Carpal tunnel release left wrist ??? section 1983 ??? Tonsillectomy ??? Finger trigger release ??? Cochlear implant ??? Cochlear implant Right 1995 umbrella prosthesis from the oval window to the tympanic membrane and precludes MRI ??? Knee arthroscopy Right ??? Lap, rmv adnexal structure N/A 02/06/2015 LAPAROSCOPY, REMOVAL OF ADNEXA performed by Doretha Jerez MD at [facility] MAIN OR ??? Removal, abdomen lymph node, staging N/A 02/06/2015 @LYMPHADENECTOMY, LIMITED FOR STAGING, RETROPERITONEAL performed by Doretha Jerez MD at [facility] MAIN OR ??? Removal of ovary/tube(s) Bilateral 02/06/2015 @SALPINGO-OOPHORECTOMY, UNILATERAL OR LUZMARIA performed by Doretha Jerez MD at [facility] MAIN OR ??? Adenoidectomy History Substance Use Topics ??? Smoking status: Never Smoker ??? Smokeless tobacco: Never Used ??? Alcohol Use: Yes Comment: rarely History Drug Use No Allergies Allergen Reactions ??? Amoxicillin-Pot Clavulanate Diarrhea ??? Aspirin Abdominal pain ??? Gluten Diarrhea and Rash ??? Ibuprofen Other (See Comments) Abdominal pain Medications: MAR and/or home medications have been reviewed. Physical Exam: Filed Vitals: 02/23/15 0733 BP: 116/68 Pulse: 62 Temp: 36.9 ??C (98.4 ??F) Body mass index is 34.3 kg/(m^2). Height: 144.1 cm (4' 8.73) Weight - Scale: 71.215 kg (157 lb) Airway Assessment: Mallampati: IV TM distance: <3 FB Neck ROM: limited Cardiovascular Assessment: Rhythm: regular cardiovascular exam normal Pulmonary Assessment: breath sounds clear to auscultation pulmonary exam normal Dental Assessment: - normal exam Misc Assessment: Patient is wearing Yes contact(s). Anesthesia Plan: ASA 2 general, with a(n) intravenous induction Sandrita San is a 64 y.o. female with a history of Klippel- Feil Syndrome, hypothyroidism, right facial droop presenting and right adnexal mass presenting for laparoscopic removal of the mass. Plan is for GETA, standard ASA monitors and adequate IV access. Discussed at length - fiberoptic intubation with patient and ENT surgeon Region - Other Informed Consent: Anesthetic plan and risks discussed with patient and spouse. Use of blood products discussed with patient whom consented to blood products. Plan discussed with AWA. James. Assessment: documented in this encounter Plan of Treatment Not on filedocumented as of this encounter Visit Diagnoses Not on filedocumented in this encounter Administered Medications Inactive Administered Medications - up to 3 most recent administrations Medication Order MAR Action Action Date Dose Rate Site dexamethasone (DECADRON) injection Given 02/23/2015 9:05 AM EDT 8 mg PRN, Starting on Thu02/23/15 at 0905, Until Thu02/23/15 at 1116, Anesthesia Intra-op, Routine dexmedetomidine (PRECEDEX) injection Given 02/23/2015 8:40 AM EDT 38 mcg PRN, Starting on Thu02/23/15 at 0840, Until Thu02/23/15 at 1116, Anesthesia Intra-op, Routine dexmedetomidine (PRECEDEX) IV New Bag 02/23/2015 8:50 AM 0.7 m cg/kg/hr 12.5 mL/hr infusion (Anesthesia EDT CONTINUOUS PRN, Starting on Thu02/23/15 at 0840, Until Thu02/23/15 at 1116, Anesthesia Intra-op ePHEDrine 5 mg/mL multi-dose injection Given 02/23/2015 11:01 AM EDT 5 mg PRN, Starting on Thu02/23/15 at 1057, Until Thu02/23/15 at 1116, Anesthesia Intra-op, Routine Given 02/23/2015 10:57 AM EDT 5 mg fentaNYL 50 mcg/mL multi-dose injection Given 02/23/2015 10:20 AM EDT 25 mcg PRN, Starting on Thu02/23/15 at 0915, Until Thu02/23/15 at 1116, Pain, Anesthesia Intra-op, Routine Given 02/23/2015 9:15 AM EDT 100 mcg glycopyrrolate (ROBINUL) multi-dose Given 02/23/2015 11:01 AM ED T 0.1 mg injection PRN, Starting on Thu02/23/15 at 0844, Until Thu02/23/15 at 1116, Anesthesia Intra-op, Routine Given 02/23/2015 8:44 AM EDT 0.4 mg HYDROmorphone (DILAUDID) injection Given 02/23/2015 10:25 AM EDT 0.4 mg PRN, Starting on Thu02/23/15 at 1025, Until Thu02/23/15 at 1116, Pain, Anesthesia Intra-op, Routine lactated ringers infusion 1,000 New Bag 02/23/2015 12:00 PM ED T 1,000 mLs 100 mL/hr mL 1,000 mL, at 100 mL/hr, Intravenous, CONTINUOUS, Starting on Thu02/23/15 at 0815, Until Thu02/23/15 at 1836, Day of Surgery (Day of Procedure) New Bag 02/23/2015 10:15 AM EDT New Bag 02/23/2015 8:36 AM EDT lidocaine (XYLOCAINE) 4 % (40 mg/mL) external Given 8:36 AM EDT 8 mLs solution PRN, Pain, Starting on Thu02/23/15 at 0836, Until Thu02/23/15 at 1116, Anesthesia Intra-op midazolam (PF) (VERSED) 1 mg/mL multi-dose Given 02/23/2015 8:50 AM EDT 1 mg injection PRN, Starting on Thu02/23/15 at 0840, Until Thu02/23/15 at 1116, Sleep, Anesthesia Intra-op, Routine Given 02/23/2015 8:40 AM EDT 1 mg ondansetron (ZOFRAN) injection Given 02/23/2015 10:20 AM EDT 8 mg PRN, Starting on Thu02/23/15 at 1020, Until Thu02/23/15 at 1116, Nausea, Anesthesia Intra-op, Routine PHENYLephrine (FROY-SYNEPHRINE) 0.25 % nasal Given 02/01 8:36 AM EDT 3 sprays spray PRN, Starting on Thu02/23/15 at 0836, Until Thu02/23/15 at 1513, Congestion, Anesthesia Intra-op, Routine PHENYLephrine HCl in NS (PF) Given 02/23/2015 10:20 AM EDT 160 m cg (FROY-SYNEPHRINE) 0.8 mg/10 mL (80 mcg/mL) multi-dose injection Syrg PRN, Starting on Thu02/23/15 at 0859, Until Thu02/23/15 at 1116, Anesthesia Intra-op, Routine Given 02/23/2015 9:11 AM EDT 80 mcg Given 02/23/2015 8:59 AM EDT 160 mcg propofol (DIPRIVAN) 10 mg/mL bolus injection Given 5 9:09 AM EDT 30 mg (Anesthesia) PRN, Starting on Thu02/23/15 at 0909, Until Thu02/23/15 at 1116, Anesthesia Intra-op Given 02/23/2015 8:54 AM EDT 100 mg rocuronium (ZEMURON) multi-dose injectio n Given 02/23/2015 9:09 AM EDT 25 mg PRN, Starting on Thu02/23/15 at 0909, Until Thu02/23/15 at 111, Anesthesia Intra-op, Routine documented in this encounter Care Teams Email Marketing Coordinator Relationship Specialty Start Date End Date Sarita Valencia MD PCP - General 09/24/10 07/19/18 [address] [place] [address] documented as of this encounter
--- OUTSIDE RECORDS SUMMARY | 2022-05-19 00:14 | XMS_ITS | Encounter Summary ---
:1950 Author [place] [address] Care Team Providers Name Role Phone Sarita Valencia MD Primary Care Provider Encounter Details Date Type Department Care Team Description 01/03/2015 Orders Only Gynecology Oncology at [facility] Doretha Jerez MD [facility] [place] [address] GYNECOLOGY ONCOLOGY [phone] [place] [id number] (Wo rk) Social History Tobacco Use Types Packs/Day Years Used Date Never Assessed Sex Assigned at Date Recorded Not on file documented as of this encounter Plan of Treatment Not on filedocumented as of this encounter Procedures Procedure Name Priority Date/Time Associated Diagnosis Comme nts FILM LIBRARY Routine 01/03/2015 9:15 AM Results f or this STORAGE ONLY CT EST procedure ar e in ABDOMEN AND PELVIS the resul ts section. documented in this encounter Results Film Library- Storage only CT abdomen & pelvis (01/03/2015 9:15 AM EST) Anatomical Region Laterality Modality Abdomen, Pelvis Other Specimen (Source) Anatomical Collection Method Collection Time Re ceived Time Location / / Volume Laterality 01/03/2015 9:15 AM EST Narrative 01/25/2015 4:00 PM EDT This is a Non-reportable exam Procedure Note ANTHONY, UNSIGNED REPORT - 01/25/2015Formatt ing of this note might be different from the original. This is a Non-reportable exam Doretha Jerez MD IMG FILM LIBRARY ORDERABLES documented in this encounter Visit Diagnoses Not on filedocumented in this encounter Care Teams Flute Grinder Relationship Specialty Start Date End Date Sarita Valencia MD PCP - General 09/24/10 07/19/18 [address] [place] [address] documented as of this encounter
--- OUTSIDE RECORDS SUMMARY | 2022-05-19 00:14 | XMS_ITS | Encounter Summary ---
:1950 Author Organization [facility] Address [facility] [place] [address] Care Team Providers Name Role Phone Sarita Valencia MD Primary Care Provider Encounter Details Date Type Department Care Team Description 02/06/2015 Surgery Main Operating Room Doretha Jerez, Not Performed Misty Watson MD LAPAROSCOPY, REMOVAL OF Hospital [facility] ADNEXA (WRVU 11.35) [facility] [address] [address] [place] [address] [phone] (Wo rk) Social History Tobacco Use Types [...] PATIENT DISCHARGE INSTRUCTIONS Gynecology Oncology phone number: [phone] You will be called to arrange follow-up [...] attempt surgery in thefuture. [place] No concerns at this time. documented in this encounter H&P Notes Lakesha Kim MD - 02/06/2015 9:11 AM EDT Inpatient [employer] - Admission Interval Note I have reviewed [...] Kim MD - 02/06/2015 11:25 AM EDT [facility] [place] Note Patient Name: Sandrita San : [id number] MR#: [id number] Case Date: 02/06/2015 Surgeon: Surgeon(s) and Role: [...] Operative Note Patient Name: Sandrita San : [id number] MR#: [id number] Case Date: 02/06/2015 Surgeon: Surgeon(s) and Role: [...] Diagnoses Not on filedocumented in this encounter Active and Recently Administered Medications Times are shown in EDT. Scheduled Medication Order 02/04/2015 02/05/2015 02/06/2015 acetaminophen (TYLENOL) tablet 650 mg (COMPLETED) 914 (Given - Provider: Suzy Horan, LIONEL) 650 mg, Oral, ONCE, 1 dose, 02/06/15 a t 0915, Maximum dose of acetaminophen is 4000 mg from all sources in 24 hours., Day of Surgery (Day of Procedure), Routine gabapentin (NEURONTIN) capsule 600 mg (COMPLETED) 914 (Given - Provider: Suzy Horan, LIONEL) 600 mg, Oral, ONCE, 1 dose, 02/06/15 a t 0915, Day of Surgery (Day [...] Procedure) documented in this encounter Care Teams Patient Financial Representative Relationship Specialty Start Date End Date Sarita Valencia MD PCP - General 09/24/10 07/19/18 [address] [place] [address] documented as of this encounter
--- OUTSIDE RECORDS SUMMARY | 2022-05-19 00:14 | XMS_ITS | Encounter Summary ---
:1950 [place] [address] Care Team Providers Name Role Phone Sarita Valencia MD Primary Care Provider Encounter Details Date Type Department Care Team Description 01/01/2015 Orders Only Gynecology Oncology [place] [facility] Doretha Jerez MD [facility] [place] [address] [place] [address] GYNECOLOGY ONCOLOGY [phone] [place], [place] [address] (Wo rk) Social History Tobacco Use Types Packs/Day Years Used Date Never Assessed Sex Assigned at Date Recorded Not on file documented as of this encounter Plan of Treatment Not on filedocumented as of this encounter Procedures Procedure Name Priority Date/Time Associated Comments Diagnosis FILM LIBRARY STORAGE Routine 01/01/2015 9:15 AM R esults for this ONLY ULTRASOUND EST procedure ar e in STUDY the results section. documented in this encounter Results Film Library- Storage only Ultrasound Study (01/01/2015 9:15 AM EST) Anatomical Region Laterality Modality Other Specimen (Source) Anatomical Collection Method Collection Time Re ceived Time Location / / Volume Laterality 01/01/2015 9:15 AM EST Narrative 01/25/2015 4:02 PM EDT This is a Non-reportable exam Procedure Note ANTHONY, UNSIGNED REPORT - 01/25/2015Formatt ing of this note might be different from the original. This is a Non-reportable exam Doretha Jerez MD IMG FILM LIBRARY ORDERABLES documented in this encounter Visit Diagnoses Not on filedocumented in this encounter Care Teams Venetian Blind Washer Relationship Specialty Start Date End Date Sarita Valencia MD PCP - General 09/24/10 07/19/18 [address] [place] [address] documented as of this encounter
--- OUTSIDE RECORDS SUMMARY | 2022-05-19 00:14 | XMS_ITS | Encounter Summary ---
:1950 Author Organization [facility] [place] [address] Care Team Providers Name Role Phone Sarita Bermudez MD Primary Care Provider Reason for Visit Reason Comments Establish Care V.C. Assessment for future i ntubation Encounter Details Date Type Department Care Team Description 02/20/2015 Office Visit Otolaryngology at [facility] Thomas Khoury DIFFICULT AIRWAY [facility] [place] [address] [facility] [phone] OTOLARYNGOLOGY DEPT. [place], [place] [address] Social History Tobacco Use Types [...] Sign Reading Time Taken Comments Blood Pressure 131/77 02/20/2015 11:22 AM EDT Pulse 78 02/20/2015 11:22 AM EDT Temperature - - Respiratory Rate - - Oxygen Saturation - - Inhaled Oxygen Concentration - - Weight 72.3 kg (159 lb 4.8 oz) 02/20/2015 11:22 AM EDT Height 144.1 cm (4' 8.75) 02/20/2015 11:22 AM EDT Body Mass Index 34.78 02/20/2015 11:22 AM EDT documented in this encounter Progress Notes Thomas Khoury MD - 02/20/2015 12:59 PM EDT Images from the original note were not included. Subjective: Patient ID: Sandrita San is a 64 y.o. female. HPI Sandrita San is seen in consultation from Clementina Jerez MD, Maude Salinas MD and SARITA BERMUDEZ MD in regards to difficult intubation The following records were reviewed: office records, operative report, anesthesia records The history is obtained through patient interview, review of relevant records, and/or discussion with referring provider. She was noted to have a pelvic mass after developing LLE edema. She was taken to the OR on 02/06 for removal of the mass and was noted to be a very difficult intubation with inability by anesthesia to safely intubate her. She was able to be masked ventilated but placing an oral airway did not help with visualization. She was noted to have polyps of her vocal cords. She recovered well from attempt at intubation and is due to be taken back to the OR on 02/23. She denies hoarseness. No change in swallowing. No prior hx of haorseness. I have known Mrs San from a right facial injury from an otologic procedure in 1995. I was involvedin insertion of a greater auricular interposition graft and facial rehab surgery. She has still mildepiphora and drooping of her right face. Some dribbling R oral commissure. I have last seen her in the late . Past Medical History Diagnosis Date ??? Vitamin [...] ADNEXA performed by Doretha Jerez MD at [facility] MAIN OR ??? Removal, abdomen lymph node, staging N/A 02/06/2015 @LYMPHADENECTOMY, LIMITED FOR STAGING, RETROPERITONEAL performed by oDretha Jerez MD at [facility] MAIN OR ??? Removal of ovary/tube(s) Bilateral 02/06/2015 @SALPINGO-OOPHORECTOMY, UNILATERAL OR LUZMARIA performed by Doretha Jerez MD at [facility] MAIN OR ??? Adenoidectomy Current outpatient prescriptions:levothyroxine (SYNTHROID) 125 mcg Tablet, Take 125 mcg by mouth daily. Thursday thru Thursday, Disp: , Rfl: ; levothyroxine (SYNTHROID) 150 mcg Tablet, Take 150 mcg by mouth as needed. Thursday and Thursday, Disp: , Rfl: ; metroNIDAZOLE (METROGEL) 1 % Gel, Apply topically daily., Disp: , Rfl: ; pyridoxine (B-6) 100 mg Tablet, Take 100 mg by mouth daily., Disp: , Rfl: cyanocobalamin 1,000 mcg Tablet, Take 1,000 mcg by mouth daily., Disp: , Rfl: ; folic acid (FOLVITE)400 mcg Tablet, Take 400 mcg by mouth daily., Disp: , Rfl: ; dapsone (ACZONE) 25 mg tablet, 50mg, PO, Once daily and PRN, Disp: , Rfl: Allergies Allergen Reactions ??? Amoxicillin-Pot Clavulanate Diarrhea ??? Aspirin Abdominal pain ??? Gluten Diarrhea and Rash ??? Ibuprofen Other (See Comments) Abdominal pain Patient Active Problem List Diagnosis Code ??? Vitamin B 12 deficiency 266.2 ??? Facial droop 781.94 ??? Rosacea 695.3 ??? Hypothyroidism 244.9 ??? Celiac disease 579.0 ??? Hearing loss 389.9 ??? Depression 311 ??? 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 Heart murmur 785.2 ??? DIFFICULT AIRWAY Family History Problem Relation Age of Onset ??? Coronary Artery Disease Father ??? Coronary Artery Disease Brother ??? Type 2 Diabetes Neg Hx ??? Hypertension Father ??? Hyperlipidemia Father ??? Hyperlipidemia Brother ??? Breast Cancer Neg Hx ??? Colorectal Cancer Mother ??? Depression Mother ??? Depression Father ??? Depression Sister ??? Depression Brother ??? Cerebrovascular Accident Neg Hx ??? Anesthesia Reaction Neg Hx ??? Thyroid Disease Neg Hx ??? Asthma Neg Hx ??? Allergies Neg Hx ??? Osteoporosis Neg Hx ??? Ovarian Cancer Neg Hx There is no pertinent family history of otolaryngologic problems Review of Systems: A complete review of constitutional, eyes, cardiovascular, respiratory, GI, , musculo-skeletal, skin, endocrine, psychiatric, hematologic, lymphatic and immunologic systems is completed and is as noted in the HPI. All other systems are otherwise negative. History Social History ??? Marital Status: Spouse Name: N/A Number of Children: N/A ??? Years of Education: N/A Occupational History ??? Not on file. Social History Main Topics ??? Smoking status: Never Smoker ??? Smokeless tobacco: Never Used ??? Alcohol Use: Yes Comment: rarely ??? Drug Use: No ??? Sexual Activity: Not on file Comment: question deferred Other Topics Concern ??? Not on file Social History Narrative Review of Systems Constitutional: Negative. Negative for unexpected weight change (20 lb weight gain in the last 10 years). HENT: Negative. Eyes: Negative. Respiratory: Negative. Negative for cough, choking and shortness of breath. Cardiovascular: Negative. Gastrointestinal: Negative. Objective: Physical Exam Constitutional: She is oriented to person, place, and time. She appears well- developed and well-nourished. No distress. HENT: Head: Normocephalic. Right Ear: Tympanic membrane, external ear and ear canal normal. No middle ear effusion. Left Ear: Tympanic membrane, external ear and ear canal normal. No middle ear effusion. Nose: No mucosal edema or nasal deformity. Right sinus exhibits no maxillary sinus tenderness and nofrontal sinus tenderness. Left sinus exhibits no maxillary sinus tenderness and no frontal sinus tenderness. Mouth/Throat: Oropharynx is clear and moist and mucous membranes are normal. No oral lesions. There is trismus (3cm) in the jaw. Normal dentition. No dental caries. No oropharyngeal exudate. Eyes: Conjunctivae are normal. Pupils are equal, round, and reactive to light. No scleral icterus. Neck: Trachea normal, normal range of motion and full passive range of motion without pain. Neck supple. No tracheal deviation present. No thyromegaly present. Pulmonary/Chest: Effort normal. No stridor. No respiratory distress. Lymphadenopathy: Head (right side): No submental adenopathy present. She has no cervical adenopathy. Right cervical: No superficial cervical and no deep cervical adenopathy present. Left cervical: No superficial cervical and no deep cervical adenopathy present. Neurological: She is alert and oriented to person, place, and time. She has normal reflexes. No cranial nerve deficit. Skin: Skin is warm. She is not diaphoretic. No erythema. Psychiatric: She has a normal mood and affect. Her behavior is normal. Judgment and thought content normal. Nursing note and vitals reviewed. Procedure: Flexible Laryngoscopy Indications: Evaluation for mucosal lesion of the upper airway Procedure and findings: The nasal mucosae are topicalized with pontacaine/afrin anesthesia. The flexible endoscope is passed through the nasal cavities and evaluation of the nasopharynx, oropharynx andlarynx is performed. All of the visualized mucosae are normal except for the following: Prominent BOT pushing back the epiglottis to reduce visualization of glottis. Vocal cord appearance is normal, there are no nodules/tumors. Mild edema of arytenoids Vocal cord mobility NORMAL Assessment and Plan: Patient with short neck, weight gain and difficult intubation on basis of multiple anatomical findings including prominent BOT, 3 cm trismus. Long discussion about airway management. Discussed I would be happy to be involved in airway management for upcoming surgery in 3 days. My plan would be to have Jose scope,camera, tower and try insertion of bougie in airway. Would also have glidescope available as back up. Another option would be fiberoptic intubation. We also discussed that if this mass could be observed for now that we could also have patient loose 10-20 lbs and attempt again the intubation. I am happy to be available for the case on Thursday, and placed orders for a laryngoscopy documented in this encounter Plan of Treatment Not on filedocumented as of this encounter Visit Diagnoses Diagnosis DIFFICULT AIRWAY documented in this encounter Care Teams Trade Facilitator Relationship Specialty Start Date End Date Sarita Bermudez MD PCP - General 09/24/10 07/19/18 [address] [place] [address] documented as of this encounter
--- OUTSIDE RECORDS SUMMARY | 2022-05-19 00:14 | XMS_ITS | Encounter Summary ---
:1950 [place] [address] Care Team Providers Name Role Phone Sarita Valencia MD Primary Care Provider Encounter Details Date Type Department Care Team Description 02/06/2015 Anesthesia Event Main Operating Room Maude Sawyer ch, MD [facility] ANESTHESIOLOGY [id number] [place] [address] [phone] Anesthesia Record Procedure Summary Procedure Name Responsible Anesthesia Start Anesthesia Stop Time Anesthesiologist Time LAPAROSCOPY, Maude Salinas MD 02/06/15 0944 02/06/15 1 056 REMOVAL OF ADNEXA (WRVU 11.35) (N/A ) Events Date Time Event Comment 02/06/2015 0941 0944 AN Verify 0944 Start 0947 Quick Note Unable to pass a glide scope or fast track # 3 LMA due to small lay th opening 0950 An Start Data 1000 An Induction 1003 An Intubation 1043 Extubation/LMA Out 1045 Quick Note Unable to intuba te patient after multiple attempts. Patien t Awakened, LMA removed without event and patien t taken to same day. Recommended ENT consult for subsequent intubation vs spinal anesthetic with air-q LMA or unique LMA back up ventilation. 1048 an stop data 1056 Stop Name Total Midazolam 2 mg PHENYLephrine 80 mcg Dexamethasone 8 mg lactated ringers infusion 1,000 mL 1,000 mL Agents Name O2 Air Sevoflurane (et) Blood No blood administrations on file. Lines, Drains, and Airways Type Details Placement Removal PIV 02/06/15; 0914; 18 gauge; 02/06/15 0914 by Aung , 02/06/15 1213 by 0; cephalic vein (lowell Mcgowan, LIONEL Hernandez, Maryanne Ellis, LIONEL side of arm), left; no longer indicated; 02/06/15; 1213 ETT Mask Ventilation: Difficult 02/06/15 1003 by 1105 by (3) (OK with airq 3.5 or Erin Grady MD Taylor, Nicole A, CRUDE OIL TREATER unique #3 lma); Exchange: FOB (Also grade 4 with [...] and unique LMA 3) Supraglottic Mask Ventilation: Difficult 02/06/15 1003 by 1105 by (3) (LMA required for Erin Grady MD Ta ylor, Nicole A, CRUDE OIL TREATER ventilation; unable to MV with one or two people, even with oral airway.); LMA Type: Unique, air-Q (unique 3.5 provided good ventilation ability but unable to get a good view with FOB via air-q; exchanged for unique LMA and still no view but able to ventilate via unique 3); Inserted by: Arnoldo/Brad PIV 02/06/15; 1043; metacarpal 02/06/15 1043 by 01/31 04/19 0921 by Epic, vein right (top of hand); Erin Grady M D User [id number] catheter system; 16 gauge; arnoldo; 02/15/18 (Auto removal via utility); 0921 (Auto removal via utility) ETT 02/06/15 1056 by 02/23/15 1105 b y Maude Salinas MD Taylor, Jennie Mcgowan CRNA documented in this encounter Social History Tobacco Use Types Packs/Day Years Used Date Never Smoker Smokeless Tobacco: Never Used Sex Assigned at Date Recorded Not on file documented as of this encounter OR Notes Anesthesia Postprocedure Evaluation - Maude Salinas MD - 02/06/2015 11:07 AM EDT Patient: Sandrita San Procedure(s) Performed: Procedure(s): LAPAROSCOPY, REMOVAL OF ADNEXA @LYMPHADENECTOMY, LIMITED FOR STAGING, RETROPERITONEAL @SALPINGO-OOPHORECTOMY, UNILATERAL OR LUZMARIA Actual Anesthetic: general Patient location: PACU Post-op pain: Adequate analgesia Post-op nausea: no nausea or vomiting Last Vitals: Filed Vitals: 02/06/15 1127 BP: 135/58 Pulse: 81 Temp: Resp: 16 Post-op cardiovascular and respiratory status: is stable Level of consciousness: awake, alert and oriented Complications: no apparent complications and tolerated the procedure well Fluid Status: normal Discussed at length the difficulty of securing her airway utilizing conventional methods. She was easy to mask ventilate through an LMA or airQ however the placement was very high (and on exam would look like it was inserted far enough into the oropharynx). She was easily ventilated through the airwaybut difficult to intubate fiberoptically and vocal cord nodules were noted to be present. Her glottic opening appeared smaller than expected. It was then decided to wake her up and have an ENT consult with the possibility of having an ENT surgeon available for securing her airway in the future if needed. I provided her a card with my contact information should she have any further questions. Anesthesia Preprocedure Evaluation - Maude Salinas MD - 02/05/2015 6:30 PM EDT Pre-Anesthesia Evaluation for: Sandrita mcgowan 64 y.o. female. Procedure(s): LAPAROSCOPY, REMOVAL OF ADNEXA @LYMPHADENECTOMY, LIMITED FOR STAGING, RETROPERITONEAL @SALPINGO-OOPHORECTOMY, UNILATERAL OR LUZMARIA Patient Active Problem List Diagnosis ??? Vitamin B 12 deficiency ??? Facial [...] and precludes MRI ??? Knee arthroscopy Right History Substance Use Topics ??? Smoking status: Never Smoker ??? Smokeless tobacco: Never Used ??? Alcohol Use: Not on file History Drug Use Not on file Allergies Allergen Reactions ??? Amoxicillin-Pot Clavulanate Other (See Comments) INTOLERANCE ??? Aspirin ??? Gluten Diarrhea ??? Ibuprofen Other (See Comments) stomach Medications: MAR and/or home medications have been reviewed. Physical Exam: There were no vitals filed for this visit. There is no height or weight on file to calculate BMI. Airway Assessment: Mallampati: IV TM distance: <3 FB Neck ROM: limited Cardiovascular Assessment: Rhythm: regular Pulmonary Assessment: breath sounds clear to auscultation Dental Assessment: Misc Assessment: Patient is wearing Yes contact(s). Anesthesia Plan: ASA 2 general, with a(n) intravenous induction Sandrita San is a 64 y.o. female with a history of Klippel- Feil Syndrome, hypothyroidism, right facial droop presenting and right adnexal mass presenting for laparoscopic removal of the mass. Plan is for GETA, standard ASA monitors and adequate IV access. Discussed at length - fiberoptic intubation Erin Grady MD Certified Registered Nurse Anesthetist Pager # [phone] Region - Other Informed Consent: Anesthetic plan and risks discussed with patient. Use of blood products discussed with patient whom consented to blood products. Plan discussed with attending. [facility] Assessment: documented in this encounter Plan of Treatment Not on filedocumented as of this encounter Visit Diagnoses Not on filedocumented in this encounter Administered Medications Inactive Administered Medications - up to 3 most recent administrations Medication Order MAR Action Action Date Dose Rate Site dexamethasone (DECADRON) injection Given 02/06/2015 10:37 AM EDT 8 mg PRN, Starting on Thu02/06/15 at 1037, Until Thu02/06/15 at 1126, Anesthesia Intra-op, Routine lactated ringers infusion 1,000 mL New Bag 02/06/2015 10:42 AM EDT 1,000 mL, at 100 mL/hr, Intravenous, CONTINUOUS, Starting on Thu02/06/15 at 0915, Until Thu02/06/15 at 1213, Day of Surgery (Day of Procedure) New Bag 02/06/2015 9:15 AM EDT 1,000 mLs 100 mL/hr midazolam (PF) (VERSED) 1 mg/mL injectio n Given 02/06/2015 9:50 AM EDT 2 mg PRN, Starting on Thu02/06/15 at 0950, Until Thu02/06/15 at 1126, Sleep, Anesthesia Intra-op, Routine PHENYLephrine HCl in NS (PF) Given 02/06/2015 10:20 AM EDT 80 mc g (FROY-SYNEPHRINE) 0.8 mg/10 mL (80 mcg/mL) injection Syrg PRN, Starting on Thu02/06/15 at 1020, Until Thu02/06/15 at 1126, Anesthesia Intra-op, Routine documented in this encounter Care Teams Clerical Warehouse Worker Relationship Specialty Start Date End Date Sarita Valencia MD PCP - General 09/24/10 07/19/18 [address] [place] [address] documented as of this encounter
--- OUTSIDE RECORDS SUMMARY | 2022-05-19 00:15 | XMS_ITS | Encounter Summary ---
:1950 Author Organization [facility] Address [address] [place] [address] Care Team Providers Name Role Phone Unknown, Provider Primary Care Provider Encounter Details Date Type Department Care Team Description 01/05/2015 Results Only [facility] Deidre Nava , Laboratory Services - [address] [place] [address] [place] [address] [place], [place] [id number] [phone] Social History Tobacco Use Types Packs/Day Years Used Date Never Assessed Sex Assigned at Date Recorded Not on file documented as of this encounter Plan of Treatment Not on filedocumented as of this encounter Procedures Procedure Name Priority Date/Time Associated Diagnosis Comme [facility] SURGICAL PATHOLOGY Routine 01/05/2015 18:02 Resul ts for this EST procedure are i n the results section. documented in this encounter Results SURGICAL PATHOLOGY (01/05/2015 18:02 EST) Pathology SURGICAL PATHOLOGY REPORT [facility] MEDICAL Report: Reports generated via electronic interface conta in original data; CENTER however they are lacking the format of the original re port. LABORATORY Caution should be taken when reading/interpretin g unformatted reports. SERVICES Name: ? JENNIFER SAN ? Accession #: ? [id number] ? : ? 1950 (Age: 64) ??F ? Collect Date: ? 01/05/2015 ? Location: ? [facility] ? Receive Date: ? 015 ? Provider: DEIDRE NAVA DO Copy to: BUD BERMUDEZ MD ? Final Pathologic Diagnosis: COLON, ASCENDING, POLYP, BIOPSY: - ??Mildly hyperplastic colonic mucosa with reactive l ymphoid cellular infiltrate. ??See comment. - ??No adenoma. Comment: The lamina propria shows a mononuclear cellular infilt rate that appears lymphocytic. There are no lymphoepithelial lesio ns. Immunohistochemical study was performed to characterize these lymphoid cells and to rule out lymphoid neoplastic process, and the immunoreacti vity pattern (CD3>CD20, OT64=SP0, CD10 negative) supports a reactiv e process. This case was reviewed by Dr. Tommy Tejada in consultation. IMMUNOHISTOCHEMISTRY: ANTIBODY(CLONE),(BLOCK):RESULT CD3(rabbit monoclonal (SP7), [employer]),(1):Po sitive CD10(SP67, Malakoff),(1):Negative CD20(L26, Malakoff),(1):Positive (less than CD3-positiv e cells) CD43(DF-T1, Dako),(1):Positive in similar cells with C D3-positive cells keratin AE1-AE3(AE1-AE3, [employer]),(1): Positive in epithelial cells, without lymphoepithelial lesions Dr. Solis 01/10/2015 06:40 AM NOTE: ??One or more of the reagents used in immunohistochemical testing in this case may not have been cleared or approved by the U.S. Food and Drug Administration (FDA). ??The FDA has determined that such clearance or approval is not necessary. ??These tests are used for clinical purposes. ??They should not be regarded as investigational or for research. ??These r eagents' performance characteristics have been determined by [facility]. ??The positive and negative controls worked appropriately. T his laboratory is certified under the Clinical Laboratory Improvement Amendments of 1988 (CLIA-88) as qualified to perform high complexity clinical labor atory testing. Document reviewed and electronically signed by: Elo Solis MD Report ??Date: 01/12/2015 07:03 By the signature above, the attending physician certif ies that he/she has personally conducted a gross and/or microscopic examin ation of the described specimens and rendered or confirmed the above diagnosi s. Specimen(s) Received: Ascending colon polyp Clinical History: Change in bowel habits, Lt abd pain, h/o adenoma, ?F/H colon cancer Gross Description: ? Received in formalin labelled with proper patient identification (initials A, H) and ascending colon polyp is a single pi nk-salazar tissue fragment (0.3 x 0.3 x 0.2 cm). Submitted intact in 1. Dr. Blanc 01/06/2015 08:56 AM End of Report Specimen Performing Organization Address City/State/ZIP Code Phon e Number [facility] [address] [place] [id number] SERVICES documented in this encounter Visit Diagnoses Not on filedocumented in this encounter Care Teams Associate Professor Of Anthropology Relationship Specialty Start Date End Date Unknown, Provider, PCP - General 01/21/10 documented as of this encounter
--- OUTSIDE RECORDS SUMMARY | 2022-05-19 00:15 | XMS_ITS | Encounter Summary ---
:1950 Author Organization [facility] Address [address] [place] [address] Care Team Providers Name Role Phone Unknown, Provider Primary Care Provider Encounter Details Date Type Department Care Team Description 05/20/2017 Hospital Encounter [facility] - S Unknown, Pro viderRamakrishna MD [address] [facility] [phone] [place] [address] (Work) [phone] Social History Tobacco Use Types Packs/Day Years Used Date Never Assessed Sex Assigned at Date Recorded Not on file documented as of this encounter Discharge Disposition Disposition Code Departure Means Destination Home or Self Residential documented in this encounter Plan of Treatment Not on filedocumented as of this encounter Visit Diagnoses Not on filedocumented in this encounter Care Teams Clerical Adviser Relationship Specialty Start Date End Date Unknown, Provider, PCP - General 01/21/10 documented as of this encounter
--- OUTSIDE RECORDS SUMMARY | 2022-05-19 00:15 | XMS_ITS | Encounter Summary ---
:1950 Author Organization [facility] Address [address] [place] [address] Care Team Providers Name Role Phone Unknown, Provider Primary Care Provider Encounter Details Date Type Department Care Team Description 01/05/2015 Hospital Encounter [facility] [place] Unknown, Provider, [facility] [address] [place] [address] [place] [address] (Work) [phone] Social History Tobacco Use Types Packs/Day Years Used Date Never Assessed Sex Assigned at Date Recorded Not on file documented as of this encounter Discharge Disposition Disposition Code Departure Means Destination Home or Self [facility] documented in this encounter Plan of Treatment Not on filedocumented as of this encounter Visit Diagnoses Not on filedocumented in this encounter Care Teams Director Supplier Quality Relationship Specialty Start Date End Date Unknown, Provider, PCP - General 01/21/10 documented as of this encounter
--- OUTSIDE RECORDS SUMMARY | 2022-05-19 00:15 | XMS_ITS | Encounter Summary ---
:1950 Author Organization [facility] Address [address] [place] [address] Care Team Providers Name Role Phone Unavailable Primary Care Provider Unavailable Encounter Details Date Type Department Care Team Description 03/23/2009 Orders Only [facility] Maria Isabel Valencia MD Laboratory Services - [address] [place] [address] [place] [address] [place] [address] [phone] Social History Tobacco Use Types Packs/Day Years Used Date Never Assessed Sex Assigned at Date Recorded Not on file documented as of this encounter Plan of Treatment Not on filedocumented as of this encounter Procedures Procedure Name Priority Date/Time Associated Comments Diagnosis HPV DETECTION, HIGH Routine 03/23/2009 9:55 Resul ts for this RISK TYPES EDT procedure are i n the results section. CYTOPATHOLOGY Routine 03/23/2009 0:00 Results for this EDT procedure are i n the results section. documented in this encounter Results HUMAN PAPILLOMA VIRUS DNA TEST (03/23/2009 9:55 EDT) Specimen Description Cervix, ThinPrep [facility] vial Result Negative for HPV [facility] types 16, 18, 31, 33, 35, 39, 45, 51, 52, 56, 58, 59, and 68. Report Status Final [facility] 04/04/2009 Specimen Performing Organization Address City/State/ZIP Code Phon e Number [facility] [address] [place] [address] SERVICES [facility] [address] [place] [address] CYTOPATHOLOGY (03/23/2009 0:00 EDT) Pathology Report: CYTOPATHOLOGY REPORT ? [facility] ? LAB Reports generated via electr onic interface contain original data; ? however they are lacking the format of the original report. ? Caution should be taken when reading/interpreting unformatted reports. ? Name: ? JENNIFER SAN ? Accession #: ? [id number] ? : ? 1950 (Age: 58) ??F ?Collect Date: ? 03/23/2009 ? Location: ? [facility] ? Receive Date: ? 03/27/2009 ? Provider: ?BUD JONES MAN MD ? Copy to: ? Specimen/Source: ? Pap Test, Cervix/Endocervix, ThinPrep Imaging System ? with manual evaluation ? 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 Treatment History: ? Colposcopy ? Other: ? HPVDX - HPV testing requeste d regardless of diagnosis on current ThinPrep Pap ?? test. ? SPECIMEN ADEQUACY ? Satisfactory for Eval uation ? - assessment of transformati on zone component not applicable ( e.g. atrophy, ? vaginal sample, hysterectomy ) ? GENERAL CATEGORIZATION ? Negative for Intraepi thelial Lesion or Malignancy ? Document reviewed and electr onically signed by: ? Joseph Copeland, CT(ASCP) ? Report Date: ??05/28/ 2009 13:17 ? End of Report ? Specimen Performing Organization Address City/State/ZIP Code Phon e Number [facility] [address] [place] [address] SERVICES [facility] [address] [place] [address] documented in this encounter Visit Diagnoses Not on filedocumented in this encounter
--- OUTSIDE RECORDS SUMMARY | 2022-05-19 00:15 | XMS_ITS | Clinical Summary ---
:1950 Author Organization [facility] Address [address] [place] [address] Care Team Providers Name Role Phone Unknown, Provider Primary Care Provider Social History Tobacco Use Types Packs/Day Years Used Date Never Assessed Sex Assigned at Date Recorded Not on file Plan of Treatment Health Maintenance Due Date Last Done Comments Hepatitis C Screen 1950 COVID-19 Vaccine (1) 1964 Fall Risk Screening 2017 Care Teams Wood Carving Machine Operator Relationship Specialty Start Date End Date Unknown, Provider, PCP - General 01/21/10
--- OUTSIDE RECORDS SUMMARY | 2022-05-19 00:15 | XMS_ITS | Encounter Summary ---
:[address] [facility] Address [address] [place] [address] Care Team Providers Name Role Phone Unknown, Provider Primary Care Provider Encounter Details Date Type Department Care Team Description 11/28/2015 Results Only [facility] Deidre Nava, DO Critical access hospital0 [facility] [address] [place], [place] [phone] (Wo rk) Social History Tobacco Use Types Packs/Day Years Used Date Never Assessed Sex Assigned at Date Recorded Not on file documented as of this encounter Plan of Treatment Not on filedocumented as of this encounter Procedures Procedure Name Priority Date/Time Associated Diagnosis Comme nts SURGICAL PATHOLOGY Routine 11/28/2015 20:32 Resul ts for this EST procedure are i n the results section. documented in this encounter Results SURGICAL PATHOLOGY (11/28/2015 20:32 EST) Pathology Report: SURGICAL PATHOLOGY REPORT [facility] Reports generated via electronic interface conta in original data; CENTER LABORATORY however they are lacking the format of the original re port. SERVICES Caution should be taken when reading/interpreting unfo rmatted reports. Name: ? JENNIFER SAN ? Accession #: ? [id number] ? : ? 1950 (Age: [age]) ??F ? Collect Date: ? 11/28/2015 ? Location: ? [facility] ? Receive Date: ? 11/28/19 16 ? Provider: DEIDRE NAVA DO Copy to: BUD BERMUDEZ MD ? Final Pathologic Diagnosis: A. STOMACH, ANTRUM, BIOPSY: - ??Antral and transitional mucosa with focally erosive reactive gastropathy and mild chronic inflammation. ?? - ??No evidence of Helicobacter pylori by immunostaini ng. B. ESOPHAGUS, DISTAL, BIOPSY: - ??Cardia type mucosa with intestinal and pancreatic acinar metaplasia, negative for dysplasia. ?? - ??Adjoining squamous mucosa with reflux esophagitis. C. ESOPHAGUS, PROXIMAL, BIOPSY: - ??Squamous mucosa with no diagnostic abnormality. Comment: ANTIBODY(CLONE)(BLOCK):RESULT H PYLORI (Rabbit Monoclonal (SP48), [place]) (A1): Neg ative NOTE: ??One or more of the reagents used in imm unoperoxidase testing in this case may not have been cleared or approved by the U.S. Food and Drug Administration (FDA). ??The FDA has determined that such clearance or approval is not necessary. ??These tests are used for clinical purposes. ??They should not be regarded as investigational or for research. ??These r eagents' performance characteristics have been determined by [facility]. ??The positive and negative controls worked ap propriately. This laboratory is certified unde r the Clinical Laboratory Improvement Amendments of 1988 (CLIA-88) as qualified to perform high complexity clinical laboratory testing. ?? Dr. Albarran 12/03/2015 4:42 PM Document reviewed and electronically signed by: HERLINDA ALBARRAN MD Report ??Date: 12/03/2015 16:52 By the signature above, the attending physician certif ies that he/she has personally conducted a gross and/or microscopic examin ation of the described specimens and rendered or confirmed the above diagnosi s. Specimen(s) Received: A. ??Antrum bxs B. ??Distal esophagus bxs C. ??Proximal esophagus bxs Clinical History: Long standing GERD on PPI Gross Description: A. ?Received in formalin labelled with proper p atient identification (initials A, H) and antrum biopsies are two pink-salazar tissues (0.3 x 0.1 x 0.1 cm and 0.5 x 0.3 x 0.2 cm). Entirely submitted in bloc k A1. B. ?Received in formalin labelled with proper p atient identification (initials A, H) and distal esophagus biopsies are three salazar-white tissues (0.3 x 0.3 x 0.1 cm to 0.4 x 0.3 x 0.1 cm). Entirely submit arron in block B1. C. ?Received in formalin labelled with proper p atient identification (initials A, H) and proximal esophagus biopsies are two white tissues (0.4 x 0.3 x 0.1 cm and 0.5 x 0.3 x 0.1 cm). Entirely submitt ed in block C1. Zahida Miguel 11/29/2015 8:49 AM End of Report Specimen Performing Organization Address City/State/ZIP Code Phon e Number [facility] [address] [place] [address] SERVICES documented in this encounter Visit Diagnoses Not on filedocumented in this encounter Care Teams Third Loader Relationship Specialty Start Date End Date Unknown, Provider, PCP - General 01/21/10 documented as of this encounter
--- OUTSIDE RECORDS SUMMARY | 2022-05-19 00:15 | XMS_ITS | Encounter Summary ---
:1950 Author Organization [facility] Address [address] [place] [address] Care Team Providers Name Role Phone Unavailable Primary Care Provider Unavailable Encounter Details Date Type Department Care Team Description 01/17/2010 Results Only [facility] Richmond Nava MD Laboratory Services - [address] [place] [address] [phone] Social History Tobacco Use Types Packs/Day Years Used Date Never Assessed Sex Assigned at Date Recorded Not on file documented as of this encounter Plan of Treatment Not on filedocumented as of this encounter Procedures Procedure Name Priority Date/Time Associated Diagnosis Comme [facility] SURGICAL PATHOLOGY Routine 01/17/2010 0:00 EDT Re sults for this procedure are i n the results section. documented in this encounter Results SURGICAL PATHOLOGY (01/17/2010 0:00 EDT) Pathology Report: SURGICAL PATHOLOGY REPORT ? [facility] Reports generated via [employer] interface contain original data; ? LAB however they are lacking the format of the original report. ? Caution should be taken when reading/interpreting unformatted reports. ? Name: ? SAN, JENNIFER B ? Accession #: ? [id number] ? : ? 1950 (Age: 59) ??F ? Collec t Date: ? 01/17/2010 ? Location: ? [facility] ? R eceive Date: ? 01/18/2010 ? Provider: DENEEN NAVA MD ? Copy to: BUD BERMUDEZ MD ? Final Pathologic Diagnosis: ? Colon, transverse, po lyp, biopsy: ? - Tubular adenoma. ? Document reviewed and electr onically signed by: ? SHERRI ARELLANO MD ? Report ??Date: 01/21/2010 15 :45 ? By the signature above, the attending physician certifies that he/she has ? personally conducted a gross and/or microscopic examination of the described ? specimens and rendered or co nfirmed the above diagnosis. ? Specimen(s) Received: ? Transverse colon poly p ? Clinical History: ? F.H. colon Ca ? Gross Description: ? Received in Hollande' s fixative labelled Jaswinder, Jennifer and transverse ?? colon polyp is a salazar-pink p olypoid tissue measuring 0.2 x 0.2 x 0.2 cm. ??The ?? presumed resection margin is inked black. ??The specimen is submitted entirely in one cassette. (A. Teague)/mp l ? End of Report ? Specimen Performing Organization Address City/State/ZIP Code Phon e Number [facility] [address] [place] [address] SERVICES [facility] [address] [place] [address] documented in this encounter Visit Diagnoses Not on filedocumented in this encounter
--- OUTSIDE RECORDS SUMMARY | 2022-05-19 00:15 | XMS_ITS | Encounter Summary ---
:1950 Author Organization [facility] Address [address] [place] [address] Care Team Providers Name Role Phone Unknown, Provider Primary Care Provider Encounter Details Date Type Department Care Team Description 05/31/2021 Lab Requisition [facility] Caitlyn Sierra, PHI Encounter for other Pathology & [address] [facility] Laboratory Medicine [place], [place] [address] [facility] [address] [place], [place] [phone] (Wo rk) [address] [phone] Social History Tobacco Use Types Packs/Day Years Used Date Never Assessed Sex Assigned at Date Recorded Not on file documented as of this encounter Plan of Treatment Not on filedocumented as of this encounter Procedures Procedure Name Priority Date/Time Associated Comments Diagnosis PAP TEST Today 05/30/2021 8:15 Encounter for other Resul ts for this EDT general examination procedur e are in the results section. HUMAN PAPILLOMAVIRUS Today 05/30/2021 8:15 Encounter for oth er Results for this (HPV) DETECTION-HIGH EDT general examination procedure are in RISK TYPES the results section. documented in this encounter Results HUMAN PAPILLOMAVIRUS (HPV) DETECTION-HIGH RISK TYPES (05/30/2021 8:15 EDT) Human Papillomavirus NegativeComment: No Negative [facility] (HPV) Detection-High E6 or E7 mRNA is CENTER LABORATOR Y Types detected from HPV SERVICES types 16,18,31,33,35,39,45 ,51,52,56,58,59,66, and 68 by spooler operator automatic mediated amplification. Specimen Pap Test - Cervix and/or Endocervix Performing Organization Address City/State/ZIP Code Phon e Number [facility] [address] [place] [address] SERVICES PAP TEST (05/30/2021 8:15 EDT) Specimens A. Cervix and/or [facility] Endocervix , ThinPrep CENTER Imaging System with LABORATORY Manual Evaluation SERVICES Specimen Adequacy Satisfactory for [facility] Evaluation - CENTER transformation zone LABORATORY component present SERVICES General Negative for [facility] intraepithelial SACRAMENTO lesion or malignancy LABORATORY SERVICES Attestation . [facility] CENTER signed by CHRIS Copeland CT(ASCP) on SERVICES 06/10/2021 at 152 8 Clinical History See below [facility] SERVICES HPV The result for the Human Pap illomavirus (HPV) Detection-High Risk Types is Negative. No E6 or E7 mRNA is detected from HPV types 16,18,31,33,35,39,45,51,52,56,58,59,66, and 68 by spooler operator automatic mediated [facility] amplification.Testing was pe rformed on specimen [id number] and was resulted on 06/10/2021 1515 EDT by ANTHONY, LAB INSTRUMENT RESULTS IN [facility] LABORATORY SERVICES Performing Lab [facility] LAB [facility] SERVICES Scanned Images [facility] SERVICES Specimen Pap Test - Cervix and/or Endocervix Performing Organization Address City/State/ZIP Code Phon e Number [facility] [address] [place] [address] SERVICES documented in this encounter Visit Diagnoses Diagnosis Encounter for other general examination documented in this encounter Care Teams Cardiac Monitor Technician Relationship Specialty Start Date End Date Unknown, Provider, PCP - General 01/21/10 documented as of this encounter
--- OUTSIDE RECORDS SUMMARY | 2022-05-19 00:15 | XMS_ITS | Encounter Summary ---
:1950 Author Organization [facility] Address [address] [place] [address] Care Team Providers Name Role Phone Unknown, Provider Primary Care Provider Encounter Details Date Type Department Care Team Description 11/28/2015 Hospital Encounter [facility] Unknown, Provider, [facility] [address] [place] [address] [place] [address] (Work) [phone] Social History Tobacco Use Types Packs/Day Years Used Date Never Assessed Sex Assigned at Date Recorded Not on file documented as of this encounter Discharge Disposition Disposition Code Departure Means Destination Home or Self Intermediate documented in this encounter Plan of Treatment Not on filedocumented as of this encounter Visit Diagnoses Not on filedocumented in this encounter Care Teams Image Consultant Relationship Specialty Start Date End Date Unknown, Provider, PCP - General 01/21/10 documented as of this encounter
--- OUTSIDE RECORDS SUMMARY | 2022-05-19 00:15 | XMS_ITS | Encounter Summary ---
:1950 Author Organization [facility] Address [address] [place] [address] Care Team Providers Name Role Phone Unknown, Provider Primary Care Provider Encounter Details Date Type Department Care Team Description 05/20/2017 Results Only [facility] Brian Diggs, [address] [place], [place] [phone] (Wo rk) Social History Tobacco Use Types Packs/Day Years Used Date Never Assessed Sex Assigned at Date Recorded Not on file documented as of this encounter Plan of Treatment Not on filedocumented as of this encounter Procedures Procedure Name Priority Date/Time Associated Diagnosis Comme [facility] SURGICAL PATHOLOGY Routine 05/20/2017 9:56 EDT Re sults for this procedure are i n the results section. documented in this encounter Results SURGICAL PATHOLOGY (05/20/2017 9:56 EDT) Pathology SURGICAL PATHOLOGY REPORT [facility] MEDICAL Report: Reports generated via electronic interface conta in original data; CENTER however they are lacking the format of the original re port. LABORATORY Caution should be taken when reading/interpretin g unformatted reports. SERVICES Name: ? JENNIFER SAN ? Accession #: ? [id number] ? : ? 1950 (Age: [age]) ??F ? Collect Date: ? 05/20/2017 ? Location: ? [facility] ? Receive Date: ? 05/21/20 17 ? Provider: BRIAN JOSHI DO Copy to: AMY J TERRELL LAW FIRM ADMINISTRATOR-BC ? Final Pathologic Diagnosis: SKIN OF SCALP, LEFT PARIETAL, SHAVE BIOPSY: - Seborrheic keratosis, irritated and inflamed. Microscopic Description: Orthohyperkeratosis and foca l parakeratosis thicken the stratum corneum. ??There is formation of horn pseudoc ysts. ??The epidermis is hyperplastic with acanthosis and papillomatosis. ??The ke ratinocytes have a basaloid appearance with squamous eddies in many areas. ??Within the dermis, there is a moderately dense lymphohistiocytic infiltrate. ??The infi ltrate extends into the epidermis with concomitant vacuolar change and keratinocyte necrosis. ??(Dr. Prather)/[facility] Document reviewed and electronically signed by: KATE PRATHER MD Report ??Date: 05/22/2017 16:03 By the signature above, the attending physician certif ies that he/she has personally conducted a gross and/or microscopic examin ation of the described specimens and rendered or confirmed the above diagnosi s. Specimen(s) Received: Left parietal scalp Clinical History: Enlarging, non-healing skin lesion; clinical diagnosis code: ??D49.2 Gross Description: ? Received in formalin labelled with proper patient identification (initials A, H) and left parietal scalp is a shave biopsy of h airbearing, salazar-brown, keratotic skin (1.1 x 0.8 x 0.2 cm). Quadrisected and submitted in 1 and 2. ARMANDO Duggan (ASCP) 05/21/2017 11:09 AM End of Report Specimen Performing Organization Address City/State/ZIP Code Phon e Number [facility] [address] [place] [phone] SERVICES documented in this encounter Visit Diagnoses Not on filedocumented in this encounter Care Teams Pug Mill Operator Relationship Specialty Start Date End Date Unknown, Provider, PCP - General 01/21/10 documented as of this encounter
--- OUTSIDE RECORDS SUMMARY | 2022-05-19 00:15 | XMS_ITS | Encounter Summary ---
:1950 Author Organization [facility] Address [address] [place] [address] Care Team Providers Name Role Phone Unknown, Provider Primary Care Provider Encounter Details Date Type Department Care Team Description 05/31/2021 Lab Requisition [facility] Caitlyn Sierra, SAMPLER RADIOACTIVE WASTE Encounter for other Pathology & [address] [facility] [place] Laboratory Medicine [place], [place] [address] [address] [place], [place] [phone] (Wo rk) [phone] Social History Tobacco Use Types Packs/Day Years Used Date Never Assessed Sex Assigned at Date Recorded Not on file documented as of this encounter Plan of Treatment Scheduled Orders Name Type Priority Associated Diagnoses Order S chedule PAP TEST Pathology Today Encounter for other general Ordered: 05/31/2021 examination documented as of this encounter Visit Diagnoses Diagnosis Encounter for other general examination documented in this encounter Care Teams Heel Boom Operator Relationship Specialty Start Date End Date Unknown, Provider, PCP - General 01/21/10 documented as of this encounter
--- OUTSIDE RECORDS SUMMARY | 2022-05-19 00:15 | XMS_ITS | Encounter Summary ---
:1950 Author Organization [facility] Address [address] [place] [address] Care Team Providers Name Role Phone Unknown, Provider Primary Care Provider Encounter Details Date Type Department Care Team Description 06/29/2012 Results Only [facility] Maria Isabel Bermudez MD Laboratory Services - [address] [facility] [place] [address] [address] [facility] [place] [address] [phone] Social History Tobacco Use Types Packs/Day Years Used Date Never Assessed Sex Assigned at Date Recorded Not on file documented as of this encounter Plan of Treatment Not on filedocumented as of this encounter Procedures Procedure Name Priority Date/Time Associated Diagnosis Comme nts PAP TEST- RESULT Routine 06/29/2012 0:00 EDT Resu lts for this ONLY procedure are i n the results section. documented in this encounter Results PAP TEST- RESULT ONLY (06/29/2012 0:00 EDT) Pathology Report: CYTOPATHOLOGY REPORT [facility] Reports generated via electronic interface contain benita ginal data; however they are lacking the format of the original re port. Caution should be taken when reading/interpreting unfo rmatted reports. Name: ? JENNIFER SAN ? Accession #: ? [id number] ? : ? 1950 (Age: 61) ??F ?Collect Da te: ? 06/29/2012 ? Location: ? [facility] ? Receive Date: ? 012 ? Provider: BUD BERMUDEZ MD Copy to: ? Final Report SPECIMEN ADEQUACY ? Satisfactory for Evaluation - transformation zone component present GENERAL CATEGORIZATION ? Negative for Intraepithelial Lesion or Malignan cy ?? Menstural/ Status: ??Post Menopausal Hormonal/Contraceptive status: Yes: Levothyroxine Treatment History: Colposcopy: yrs ago Specimen/Source: ??Pap Test, Cervix/Endocervix, ThinPr ep Imaging System with manual evaluation Document reviewed and electronically signed by: ? Joseph Copeland, CT(ASCP) ? Report ??Date: 07/07/2012 09:06 HPV with Pap Test ? Date Ordered: ? 07/07/2012 ? Status: ?? Signed Out ?Date Complete: ? 07/09/2012 ? By: ??S ystem Interface ? Date Reported: ? 07/09/2012 ? Interpretation RESULT: Negative for HPV. No E6 or E7 mRNA is detected from HPV types 16,18,31,3 3,35, 39,45,51,52,56,58,59,66, and 68 by petroleum engineer media arron amplification. Comments Document reviewed and electronically signed by: ? System Interface ? Report date: 07/09/2012 By the signature above, the attending physician certif ies that he/she has personally conducted a gross and/or microscopic examin ation of the described specimens and rendered or confirmed the above diagnosi s. End of Report Specimen Performing Organization Address City/State/ZIP Code Phon e Number [facility] [address] [place] [id number] [facility] [address] [place] [address] documented in this encounter Visit Diagnoses Not on filedocumented in this encounter Care Teams Gate Clerk Relationship Specialty Start Date End Date Unknown, Provider, PCP - General 01/21/10 documented as of this encounter
--- NOTE | 2022-05-19 06:45 | DI.MAMMO_ITS ---
Exam(s) MAMMO SCREENING EXAM: MAMMO SCREENING CLINICAL HISTORY: screening,z12.39 TECHNIQUE: Mammograms were interpreted according to the usual protocol including computer analysis w Cloud[employer] CAD system, tomosynthesis and C-view imaging. COMPARISON: 2012 through 2020 FINDINGS: The breasts are composed of mainly fatty density , Breast Density category A. No suspicious masses or suspicious microcalcifications are seen. No skin thickening or abnormal axillary lymph nodes are seen. There has been no significant change from prior exams. IMPRESSION: BI-RADS Category 1, Negative mammogram Yearly screening mammography is recommended. Breast Density - Category A, fatty density. A negative radiographic report should not delay biopsy if a dominant or clinically suspicious mass is present. Up to ten percent of cancers are not identified on mammography. A negative report may reinforce clinical impression. Adenosis and dense breasts may obscure an underlying neoplasm. False positive reports average 6 to 10%. Patient will receive a letter notifying them of these results.
== END ==
DX: Z12.31 Encounter for screening mammogram for malignant neoplasm of breast (principal)
CPT/HCPCS: 77063; 77067

== ENCOUNTER 2022-05-19 02:16 | Outpatient (CLI) | payer MEDICARE, BC, SELFPAY ==
[2022-05-19 08:40] LABS: HCT 39.9 % (36.0-46.0); HGB 14.1 g/dL (11.2-15.7); MCH 32.5 pg (27.0-33.0); MCHC 35.3 % (32.0-36.0); MCV 92 fL (80-95); MPV 9.6 fL (8.0-11.0); Platelet Count 180 10^3/uL (130-400); RBC 4.34 10^6/uL (3.93-5.22); RDW 11.9 % (11.7-14.6)
[2022-05-19 09:31] LABS: ALT 43 U/L (14-59); AST 22 U/L (15-37); Alkaline Phosphatase 91 U/L (46-116); Anion Gap 9.1 mmol/L (3-11); BUN 18 mg/dL (7-18); Bilirubin, Total 0.7 mg/dL (0.2-1.0); CO2 27.9 mmol/L (21.0-32.0); Calcium 9.1 mg/dL (8.5-10.1); Chloride 104 mmol/L (98-107); Estimated GFR 54.97 (mL/min/1.73m2); Glucose 104 mg/dL (74-106); Potassium 4.2 mmol/L (3.5-5.1); Sodium 141 mmol/L (136-145); TSH (W/Ref FT4) 4.45 uIU/mL (0.36-3.74)
[2022-05-19 09:57] LABS: FREE T4 1.15 ng/dL (0.76-1.46)
== END 2022-05-19 02:17 | disposition home or self-care (01) ==
LOC: LBO 02:16
DX: G47.33 Obstructive sleep apnea (adult) (pediatric); K21.9 Gastro-esophageal reflux disease without esophagitis; K90.0 Celiac disease; Q76.1 Klippel-Feil syndrome; G47.00 Insomnia, unspecified; E03.9 Hypothyroidism, unspecified; D64.9 Anemia, unspecified
CPT/HCPCS: 36415; 80053; 85027; 84439; 84443

== ENCOUNTER 2022-12-21 15:27 | Emergency (ER) | payer MEDICARE, BC, SELFPAY ==
[2022-12-21 15:30] VITALS: BP 123/75; PULSE 82; RESP 18; TEMP 36.6; O2SAT 98
--- NOTE | 2022-12-21 15:30 | DI.RAD_ITS ---
Exam(s) XR WRIST LT COMPLETE EXAM: XR WRIST LT COMPLETE CLINICAL HISTORY: fall/injury. TECHNIQUE: 2D digital imaging was performed. Three views. COMPARISON: No exams were available for comparison FINDINGS: BONES: Comminuted distal radial fracture with dorsal displacement and angulation. No visible separat ion at the articular surface. Distal ulna and carpal bones appear intact. No bony destructive lesio n is seen. JOINTS: The carpal bones are normally aligned. SOFT TISSUE: Swelling around wrist. IMPRESSION: Comminuted and displaced distal radial fracture. DATA REPOSITORY: RADIATION DOSE DELIVERED:
--- NOTE | 2022-12-21 15:49 | W.ED.GENAD ---
Discharge Plan Disposition Patient Disposition: Home Condition: Improving Discharge Details Clinical Impression: Fracture of left distal radius Primary Care Provider: Tanmay Helm ED Provider: Julio C Adair Home Meds and New Rx's Prescriptions: Continued acetic acid 2 % solution 4 drp OT TID PRN omeprazole 20 mg capsule,delayed release(DR/EC) 20 mg PO DAILY Qty: 90 3RF metronidazole 0.75 % gel 1 applic Topical BID PRN Qty: 45 1RF dapsone 25 mg tablet 25 - 50 mg PO DAILY PRN Qty: 60 0RF Rx Instructions: 25 MG-50 MG DAILY PRN folic acid 1 MG tablet 1 mg PO DAILY PRN cyanocobalamin (vitamin B-12) [Vitamin B-12] 1,000 MCG tablet extended release 1,000 mcg PO DAILY Qty: 100 levothyroxine 137 mcg tablet 137 mcg PO DAILY Qty: 30 3RF mupirocin 2 % ointment 1 applic TOPICAL 3XD Discharge Instructions Instructions: Wrist Fracture in Adults (ED) Additional Instructions: Rest, elevate, cool compresses every 2 hours for 20 minutes. Wear splint and sling until you are followed up as an outpatient with the [facility]. Please contact their office tomorrow to discuss your ER visit, reduction, ongoing symptoms and need for outpatient reevaluation. [id number] Tylenol as directed. Please watch for new or worsening symptoms and return to the ER for any concerns. Discharge Data Discharge Date/Time-TO BE ENTERED AT DEPARTURE: 12/21/22 18:26 Medical Decision Making This is a 72-year-old female, [id number], not anticoagulated, who had a mechanical slip and fall injuring her left wrist and right dejesus about 45 minutes ago. She denies striking her head, LOC, headache. 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 Patient also reports that she does not want any sedating medications or conscious sedation. She does not want any additional or different pain medications at this time. Agreeable to an x-ray. X-ray reveals a displaced and comminuted distal radial fracture. Discussed x-ray findings with patient and family. Patient would prefer to follow-up at [facility] clinic. We discussed potential hematoma block and reduction. Patient was concerned that she would still need a reduction in the orthopedic office even if she had one here in the ER. Case discussed with Dr. Stark, reviewed the x-rays and the patient's overall wishes. Given tomorrow is a holiday, she may not be seen in the office, he does recommend a hematoma block and fingertrap reduction. Patient is agreeable to this. Please see procedural note. Postreduction films obtained and a volar wrist splint was applied. Patient does not want any additional medication other than Tylenol [id number]. She plans to contact the [facility] tomorrow to discuss her ER visit and need for outpatient reevaluation. She remains neuro, vascular, tendon intact. Standard discharge and return precautions were provided. Patient understands, is agreeable to this plan, and has no additional questions or concerns upon discharge. This documentation was generated using [employer] system, please disregard any oddities of phrase or misspellings. Medical Records Medical records reviewed: Yes I reviewed the patient's medical records. Imaging Data Radiologic Study: Attestation: I personally reviewed and interpreted this imaging study as follows: Imaging: X-Ray Radiologist's impression: PROCEDURE INFORMATION: Exam: XR Left Wrist Exam date and time: 12/21/2022 3:56 PM Age: 72 years old Clinical indication: Injury or trauma; Other: Fall/injury; Injury date: 12/21/2022 TECHNIQUE: Imaging protocol: Radiologic exam of the Left wrist. Views: 3 or more views. COMPARISON: No relevant prior studies available. FINDINGS: Bones/joints: Displaced and comminuted fracture of the distal radius. No definite intra-articular extension. No dislocation. Soft tissues: Wrist swelling. IMPRESSION: Displaced and comminuted distal radial fracture. Radiologic Study #2: Attestation: I personally reviewed and interpreted this imaging study as follows: Imaging: X-Ray Radiologist's impression: PROCEDURE INFORMATION: Exam: XR Left Wrist Exam date and time: 12/21/2022 5:55 PM Age: 72 years old Clinical indication: Injury or trauma; Fall; Other: Post finger trap reduction; Injury date: 12/21/22 TECHNIQUE: Imaging protocol: Radiologic exam of the Left wrist. Views: 3 or more views. COMPARISON: CR XR WRIST LT COMPLETE 12/21/2022 3:56 PM FINDINGS: Bones/joints: There is a comminuted distal radial shaft fracture with near anatomic alignment post reduction with overlying splint noted. There is mild dorsal angulation, improved compared to earlier study. Soft tissues: Normal. IMPRESSION: Improved alignment distal radial fracture HPI General Mode of arrival: ambulatory. Date/Time Provider Initiated Documentation: 12/21/22 15:40. Limitations to Documentation: no limitations. Information obtained by: patient and family. History of Present Illness 72 year old F presents to the emergency department with the chief complaint of fall, left wrist injury, described as severe, with intensity rated at 8. Quality is described as aching, and is localized to the left and upper extremity. Patient reports no radiation. Patient started experiencing this minute(s) (45) and it has been constant. Immobilization improves symptom(s), Movement worsens symptoms . Patient notes other (R lower leg contusion). Patient did receive the following treatments prior to arrival, none Related Data Home Medications Medication Instructions Recorded Confirmed folic acid 1 mg tablet 1 mg PO DAILY PRN 06/11/13 12/21/22 cyanocobalamin (vitamin B-12) 1,000 mcg PO DAILY #100 tab-caps 07/18/14 12/21/22 1,000 mcg tablet,extended release (Vitamin B-12 ER) dapsone 25 mg tablet 25 - 50 mg PO DAILY PRN #60 01/14/21 12/21/22 tab-caps acetic acid 2 % ear solution 4 drp otic (ear) TID PRN 05/30/21 12/21/22 metronidazole 0.75 % topical gel 1 applic topical BID PRN #45 grams 04/08/22 12/21/22 omeprazole 20 mg capsule,delayed 20 mg PO DAILY #90 caps 04/08/22 12/21/22 release levothyroxine 137 mcg tablet 137 mcg PO DAILY #30 tabs 10/01/22 12/21/22 mupirocin 2 % topical ointment 1 applic topical 3XD 12/21/22 12/21/22 Previous Rx's Medication Instructions Recorded dapsone 25 mg tablet 25 - 50 mg PO DAILY PRN #60 01/14/21 tab-caps metronidazole 0.75 % topical gel 1 applic topical BID PRN #45 grams 04/08/22 omeprazole 20 mg capsule,delayed 20 mg PO DAILY #90 caps 04/08/22 release levothyroxine 137 mcg tablet 137 mcg PO DAILY #30 tabs 10/01/22 Allergies Allergy/AdvReac Type Severity Reaction Status Date / Time amoxicillin trihydrate Allergy Intermediate RASH & Verified 12/21/22 16:22 [From Augmentin] diarrhea potassium clavulanate Allergy Unknown RASH Verified 12/21/22 16:22 [From Augmentin] gluten AdvReac Severe DIARRHEA, Verified 12/21/22 16:22 RASH aspirin AdvReac Intermediate GI upset Verified 12/21/22 16:22 ibuprofen AdvReac Intermediate STOMACH Verified 12/21/22 16:22 PAIN General Stated Complaint: Orthopedic DOMONIQUE: 4 Review of Systems Constitutional Constitutional: Denies headache(s) and Denies weakness ENT Ears, Nose, Mouth, and Throat: Denies headache(s) and Denies neck pain Cardiovascular Cardiovascular: Denies chest pain and Denies dyspnea Respiratory Respiratory: Denies dyspnea Gastrointestinal Gastrointestinal: Denies nausea and Denies vomiting Musculoskeletal Musculoskeletal: Denies back pain, Denies neck pain, Denies numbness and Denies tingling Integumentary/Breasts Skin/Breast: Denies erythema Neurologic Neurologic: Denies headache(s), Denies numbness, Denies tingling and Denies weakness Hematologic/Lymphatic Hematologic/Lymphatic: Denies easy bleeding and Denies easy bruising PFSH All Active Problems (Updated 12/21/22 @ 18:10 by ARMANDO Black) Vitamin B 12 deficiency (Chronic 01/01/15) Tendinitis of right rotator cuff (Chronic 01/29/16) Seborrheic keratosis (Chronic 05/20/17) DR. 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 Able to ventilate with Air-q LMA 3.5 or unique 3. unable to pass tube under FOB via LMA. Grade 4 with [place]. Consider spinal anesthetic when appropriate, awake intubation or ENT consult for intubation. Gynecologic exam normal (Acute) Hypothyroidism (acquired) (Acute) Carpal tunnel syndrome of right wrist (Acute) Morbid obesity with BMI of 40.0-44.9, adult (Acute) Pustule (Acute) Screening for colon cancer (Acute) Fracture of left distal radius (Acute) Medical History Anemia (10/01/98) Suspected sleep apnea (08/17/15) Tenderness of left calf Surgical History Arthroplasty of knee (~12/2010) RIGHT Bilateral salpingectomy with oophorectomy 01/2015 section (~1983) History of arthroscopy of knee History of section Open Carpal Tunnel release 08/13 08/14; LEFT Status post carpal tunnel release Status post tonsillectomy and adenoidectomy Status post trigger finger release Tonsillectomy and adenoidectomy Trigger Finger release (~06/2013) Umbrella Prosthesis Vaginal delivery 1989 Family History Mother , AGE 49 Alcohol abuse Colon cancer Substance abuse Father , AGE 76 Diabetes Essential hypertension Heart disease Depression Alcohol abuse Brother Essential hypertension Heart disease Hyperlipidemia Myocardial infarction Prostate cancer Alcohol abuse Brother Essential hypertension Heart disease Depression Maternal Grandfather , AGE 78 Essential hypertension Heart disease Hyperlipidemia Stroke Alcohol abuse Paternal Grandfather , AGE 80 Heart disease Depression Maternal Grandmother , AGE 100 Stroke Paternal Grandmother , AGE 33 Bowel cancer Son No problems noted. Son No problems noted. Social History Smoking/Tobacco Use Status: Never Second Hand Exposure: Yes Smoking risk assessment performed?: Yes Alcohol Intake: current Alcohol Intake frequency: holidays/special occasions only Alcohol type: wine Drug use: Never Substance use type: does not use Counseling given: No Counseling provided: none Caregiver/Support person: No Household members: spouse Housing: house Communication Needs: None Do you need help understanding health information?: Never Pets and animals: Yes Pets and animals: cat(s) Sexually active: No Do you think of yourself as: straight/heterosexual Current gender identity: female What is your relationship status?: How often do you talk on the phone with friends or family?: three or more times per week How often do you get together with friends or relatives?: once per week How often do you attend synagogue or jewish services?: decline to answer Do you belong to any clubs or organized social groups?: yes Panel score (0-1 are the most socially isolated patients): 3 What type of physical activity do you participate in: other Details: bettye chi/exercise class (balance) Duration: 30-45 minutes/day Frequency: 3-4 times per week Rosio/Zoroastrian: None Special rosio needs: No Seatbelt use: always Helmet use: No Drive intox or ride w/intox wrecking car driver: No Exam Const General: cooperative, healthy appearing, comfortable and no acute distress Orientation: alert, awake and oriented x3 HENMT Head: normal to inspection, normocephalic and atraumatic Mouth: moist mucous membranes Eyes Conjunctivae: conjunctivae normal Neck Neck: normal visual inspection, trachea midline and supple Resp Effort & Inspection: normal respiratory effort and able to speak in complete sentences Cardio Rate: regular rate Rhythm: regular rhythm Skin General skin exam: no rashes or lesions noted Neuro General: patient alert, patient awake, moves all extremities and no focal motor deficits Cognition: normal cognition Speech: speech normal Gait: normal gait Sensory Exam: no sensory deficits noted Extrem General: capillary refill normal Elbow/forearm/wrist images: 1. Obvious deformity. Skin is intact. Diffuse swelling, tenderness, worse over the radial aspect. Limited range of motion secondary to discomfort. Normal radial pulse and capillary refill. Upper/lower leg/hip images: 1. Contusion, central abrasion. Neuro, vascular, tendon intact. Psych Appearance: grossly normal Mental Status: mental status grossly normal Course Vital Signs Vital signs: Vital Signs Temperature 36.6 C 12/21/22 15:30 Pulse 82 12/21/22 15:30 Respiratory Rate 18 12/21/22 15:30 Blood Pressure 123/75 12/21/22 15:30 Pulse Oximetry 98 12/21/22 15:30 Temperature 36.6 C 12/21/22 15:30 Temperature Source Skin 12/21/22 15:30 Pulse 82 12/21/22 15:30 Respiratory Rate 18 12/21/22 15:30 Blood Pressure 123/75 12/21/22 15:30 Blood Pressure Position Sitting 12/21/22 15:30 Pulse Oximetry 98 12/21/22 15:30 Oxygen Delivery Method Room Air 12/21/22 15:30 Oxygen Flow Rate 0 12/21/22 15:30 Pain Level 7 12/21/22 15:30 Comment denies 12/21/22 15:30 Procedures Orthopedic Fracture Reduction Fracture #1: Time Out Performed: Yes Side: left Fracture Reduction Location: radius Analgesia: hematoma block Technique: direct manipulation and finger traps Post Reduction X-rays Demonstrate: acceptable reduction Post-reduction neuro exam: intact and no change Post-reduction vascular exam: intact and no change Splint Applied: Yes Patient Tolerated Procedure: well and no complications Orthopedic Splinting/Casting Injury #1: Side: left Upper Extremity Injury Location: wrist Upper Extremity Immobilizer: sling/shoulder immobilizer and wrist splint
--- NOTE | 2022-12-21 16:12 | DI.VRAD_ITS ---
PROCEDURE INFORMATION: Exam: XR Left Wrist Exam date and time: 12/21/2022 3:56 PM Age: 72 years old Clinical indication: Injury or trauma; Other: Fall/injury; Injury date: 12/21/2022 TECHNIQUE: Imaging protocol: Radiologic exam of the Left wrist. Views: 3 or more views. COMPARISON: No relevant prior studies available. FINDINGS: Bones/joints: Displaced and comminuted fracture of the distal radius. No definite intra-articular extension. No dislocation. Soft tissues: Wrist swelling. IMPRESSION: Displaced and comminuted distal radial fracture. Dictated and Authenticated by: Tanmay Farnsworth MD. Ordering:MOOSE Bunch MD
[2022-12-21] MEDS: Bupivacaine 0.5% Pres-Free 30 ML VIAL (16:52)
--- NOTE | 2022-12-21 17:30 | DI.RAD_ITS ---
Exam(s) XR WRIST LT COMPLETE EXAM: XR WRIST LT COMPLETE CLINICAL HISTORY: post finger trap reduction. TECHNIQUE: 2D digital imaging was performed. Three views. COMPARISON: CR,XR XR WRIST LT COMPLETE from 12/21/2022 FINDINGS: A volar splint is in place. There has been improvement in the alignment of the distal radial fractur e. No new abnormalities are seen. DATA REPOSITORY: RADIATION DOSE DELIVERED:
--- NOTE | 2022-12-21 18:08 | DI.VRAD_ITS ---
PROCEDURE INFORMATION: Exam: XR Left Wrist Exam date and time: 12/21/2022 5:55 PM Age: 72 years old Clinical indication: Injury or trauma; Fall; Other: Post finger trap reduction; Injury date: 12/21/22 TECHNIQUE: Imaging protocol: Radiologic exam of the Left wrist. Views: 3 or more views. COMPARISON: CR XR WRIST LT COMPLETE 12/21/2022 3:56 PM FINDINGS: Bones/joints: There is a comminuted distal radial shaft fracture with near anatomic alignment post reduction with overlying splint noted. There is mild dorsal angulation, improved compared to earlier study. Soft tissues: Normal. IMPRESSION: Improved alignment distal radial fracture. Dictated and Authenticated by: Lucero Mendez MD. Ordering:MOOSE Bunch MD
[2022-12-21 18:14] VITALS: BP 140/92; PULSE 79; RESP 18; TEMP 37; O2SAT 98
[2022-12-21 18:18] VITALS: BP 140/92; PULSE 79; RESP 18; TEMP 37; O2SAT 98
== END 2022-12-21 18:26 | disposition home or self-care (01) ==
PROVIDERS: Emergency Provider Physician Assistant; PCP Nurse Practitioner Family
DX: S52.502A Unspecified fracture of the lower end of left radius, initial encounter for closed fracture (principal); S80.11XA Contusion of right lower leg, initial encounter; W01.0XXA Fall on same level from slipping, tripping and stumbling without subsequent striking against object, initial encounter
CPT/HCPCS: 99283; 25605; 73110; 99284

== ENCOUNTER → 2023-03-31 13:48 | Outpatient (BNVA) | payer MEDICARE, BC, SELFPAY | PROVIDERS: PCP Nurse Practitioner Family; Referring Provider Nurse Practitioner Acute Care; Visit Provider Nurse Practitioner Adult Health | DX: G56.01 Carpal tunnel syndrome, right upper limb (principal) | CPT/HCPCS: 95886; 95908; 99203; 99213 ==

== ENCOUNTER 2023-04-25 13:43 | Outpatient (REF) | payer MEDICARE, BC, SELFPAY ==
--- NOTE | 2023-04-25 10:50 | SKI_PTH ---
PATIENT: Sandrita San LOC: [facility] U#:[id number] AGE/SX: 72/F ROOM: RE04/25/[address]: Tanmay Breen DNP : 1950 BED: DIS: 04/25/2023 SPEC #: [id number] RECD: 04/27/23 12:44 STATUS: WILLIE REJosé Miguel #: [id number] VERÓNICA: 04/25/23 10:[address]: Tanmay Helm DEPT: Surgical Specimen RECD BY: Micheline Vuong Tissues: 1 - SKIN BIOPSY(SHAVE/PUNCH) Procedures: SKIN LEVEL 4 Comments: [id number]
--- OUTSIDE RECORDS SUMMARY | 2023-04-25 13:49 | XMS_ITS | Continuity of Care Document ---
Author Name Unknown Organization [facility] Amb[facility] Address [address] [place] [address] Care Team Providers Care Peritoneal Dialysis Registered Nurse Name Role Phone Tanmay Long Primary Care Physician Encounter [facility] [id number] Date(s): 01/05/23 - 01/05/23 [facility] [address] [place] [address]- Encounter Diagnosis Distal radius fracture, left(Discharge Diagnosis) - 01/05/23 Discharge Disposition: Home or Self Care Attending Physician: Roberto Meyers MD Allergies, Adverse Reactions, Alerts Substance Reaction Severity Status ibuprofen Abdominal pain Mild Active amoxicillin Diarrhea Mild Active aspirin Abdominal pain Unknown Active Adhesive Bandage Rash Mild Active Glutens Abdominal pain Rash Mild Active Assessment and Plan Future Appointments Functional Status 01/05/23 Other exposure to Infectious Disease Non e Medications Eligen B12 1000 mcg oral tablet 1 tab, Oral, Daily, on an empty stomach, # 30 tab, 0 Refill(s) Start Date: 12/23/22 Status: Ordered folic acid 1 mg oral tablet 1 mg = 1 tab, Oral, Daily, # 30 tab, 0 Refill(s) Start Date: 12/23/22 Status: Ordered levothyroxine 137 mcg (0.137 mg) oral tablet 30 EA, TAKE ONE TABLET BY MOUTH EVERY DAY, 0 Refill(s) Start Date: 12/23/22 Status: Ordered mupirocin 2% topical ointment 22 g, APPLY TO AFFECTED AREA(S) THREE TIMES A DAY FOR 7 DAYS, 0 Refill(s) Start Date: 12/23/22 Status: Ordered Problem List Condition Confirmation Course Effective Dates Status Health St atus Informant Arthritis Confirmed Active Celiac sprue Confirmed Active Difficult intubation 1 Confirmed Active GERD - Gastro-esophageal reflux disease Confirmed Active Hearing loss Confirmed Active Heart murmur Confirmed Active Klippel-Feil syndrome Confirmed Active Neck pain Confirmed Active Neck range of motion 2 Confirmed Active ALLA - Obstructive sleep apnea 3 Confirmed Active Stomach ulcer Confirmed Active Thyroid disease Confirmed Active 1per [facility] record use right nare 2limited 3wears cpap at [facility] Procedures Procedure Date Related Diagnosis Body Site Status Open Reduction Internal Fixa tion Wrist (Left) 1 12/24/22 Completed Arthroscopic knee operation Completed CTR - carpal tunnel release Completed EGD - Esophagogastroduodenoscopy Completed Laparoscopic bilateral salpingo-oophorectomy Completed Release of trigger finger Completed Tonsillectomy and adenoidectomy Completed Tympanoplasty 2 Completed 1auto-populated from documented surgical case 2many Vital Signs Most recent to oldest [Reference Range]: 1 Peripheral Pulse Rate [60-100 bpm] 68 bp m (01/05/23 8:26 AM) Blood Pressure [90-140/60-90 mmHg] 136/8 2mmHg (01/05/23 8:26 AM) Weight 75 kg (01/05/23 8:26 AM) Weight Measured (lbs) 165.347 lb (01/05/23 8:26 AM) Height 145 cm (01/05/23 8:26 AM) Height/Length Measured (inches) 57.09 in ch (01/05/23 8:26 AM) BSA Measured 1.74 m2 (01/05/23 8:26 AM) Body Mass Index 35.67 kg/m2 (01/05/23 8:26 AM) Social History Social History Type Response Tobacco Never tobacco user T obacco Use:. Sex Implantable Device List Procedure Provider Procedure Date Device Type Site Open treatment of distal radial extra-articular fracture or epiphyseal separation, with internal fixation Roberto Meyers MD 12/24/22 Non Biological Wrist L Device Identifier Serial Number Lot or Batch Number Manufacturing Date Expiration Date Distinct Identification Code MRI Safety Implantable Status Assigning Authority Unknown Unknown [email or web address] feb20,2 023 Unknown Unknown Unknown Unknown Active Unknown Unknown Unknown [email or web address] feb20,2 023 Unknown Unknown Unknown Unknown Active Unknown Unknown Unknown m1l4 feb20,2 023 Unknown Unknown Unknown Unknown Active Unknown Unknown Unknown m1l4 feb20,2 023 Unknown Unknown Unknown Unknown Active Unknown Unknown Unknown m1l4 feb20,2 023 Unknown Unknown Unknown Unknown Active Unknown Unknown Unknown [id number] Unknown Unknown Unknown Unknown Active Unknown Unknown Unknown [email or web address] feb20,2 023 Unknown Unknown Unknown Unknown Active Unknown Physician Outpatient Note * Roberto Meyers MD: PERFORM Event Display: Office Clinic Note Physician Authored Date: [id number] JENNIFER MCDONOUGH :1950 Age:72 years Sex:Female MRN:[id number] Visit Date:01/05/2023 Primary Care Physician: Tanmay Long Chief Complaint L wrist- POV #1- Xr today History of Present Illness I am following up with this patient who is now 12 days after her ORIF of her left distal radius.?? She did quite well after the surgery. ??Did??have??some pain for the first couple of days and then??things got much better. ??Otherwise she is not complaining of any other issues. Review of Systems Constitutional:?No??fevers,?No??chills,?No??sweats Eye:?No??recent visual problems ENT:?No??ear pain,?No??nasal congestion,?No??sore throat Respiratory:?No??shortness of breath,?No??cough Cardiovascular:?No??Chest pain,?No??palpitations,?No??syncope Gastrointestinal:?Nonausea,?No??vomiting,?No??diarrhea Genitourinary:?No??hematuria Freddie/Lymph:?No??bruising tendency,?No??swollen lymph glands Endocrine:?No??excessive thirst,??No??excessive hunger Musculoskeletal:??No??back pain,??No??neck pain,??No??joint pain,??No??muscle pain,??No??decreased range of motion Integumentary:?No??rash,?No??pruritus,?No??abrasions Neurologic: Alert & oriented X 4 Psychiatric:?No??anxiety,?No??depression Physical Exam Vitals & Measurements HR:??68??(Peripheral)?? BP:??136/82?? SpO2:??97%?? HT:??145??cm?? WT:??75??kg?? BMI:??35.67?? BSA:??1.74?? General: Alert and oriented, well nourished,?No??acute distress Eye: PERRL, EOMI,?Normal??conjunctiva HENT: Normocephalic, clear tympanic membranes,?Normal?? hearing, moist oral mucosa,?No??scleral icterus,?No??sinus tenderness Neck: Supple, non-tender,?No??carotid bruits,?No??JVD,?No??lymphadenopathy Lungs: Clear to auscultation and percussion,?Non-labored?? respiration Heart:?Normal?? rate,?Regular??rhythm,?No??murmur,?No??gallop,?No??edema Breast:?No??lumps,?No??bumps,?No??scars,?Normal?? nipples Abdomen: Soft, non-tender, non-distended,?Normal?? bowel sounds,?No??masses Musculoskeletal:?Normal?? range of motion and strength,?No??tenderness,?No??swelling Skin: Skin is warm, dry and pink,?No??rashes,?No??lesions Neurologic: Awake, alert and oriented X4, CN II-XII intact Psychiatric: Cooperative, appropriate mood and affect ?? On the physical exam, I have removed the splint and the bandages that were placed at the time of the surgery.?? Surgical wound is looking great, with no drainage and no redness. ??She has some slightamount of swelling of her wrist and some slight bruising which is totally expected??after this typeof injury and surgery.?? Neurovascular status is normal. ??She is moving her fingers quite well.?? Obviously there are some stiffness of the wrist as she is just coming out of the splint. ?? X-rays were done today showing that the reduction is still in perfect anatomic position all views. ??All the implants are in good position with no signs of movement and/or loosening. Assessment/Plan 1.??Distal radius fracture, left??S52.502A So overall the patient is doing quite well clinically and radiologically.?? I gave her directives in terms of wound care, she has Steri-Strips and dissolving stitches underneath.?? I gave her exercises to work on her wrist including extension, flexion, pronation and supination.?? We discussed the option of doing physical therapy with the patient wants to do it on her own.?? She??would prefer to have some protection when she is walking outside, considering its wintertime, so I gave her a little cock up brace. ??I told her that she needs to remove it on a regular basis though??to not lose the benefits of the surgery and early??mobilization.?? I will follow-up with her in 3 weeks to repeat thex-ray and reassess how she is doing. ??Up until then, the patient is allowed to use her wrist for daily life activities but needs to avoid heavy lifting, strenuous physical activities??and activitiesat risk of a fall. Problem List/Past Medical History Ongoing Arthritis Celiac sprue Difficult intubation GERD - Gastro-esophageal reflux disease Hearing loss Heart murmur Klippel-Feil syndrome Neck pain Neck range of motion ALLA - Obstructive sleep apnea Stomach ulcer Thyroid disease Historical No qualifying data Procedure/Surgical History ???Open Reduction Internal Fixation Wrist (Left) (12/24/2022)???Arthroscopic knee operation???CTR -carpal tunnel release???EGD - Esophagogastroduodenoscopy???Laparoscopic bilateral salpingo-oophorect andrea???Release of trigger finger???Tonsillectomy and adenoidectomy???Tympanoplasty Medications Eligen B12 1000 mcg oral tablet, 1 tab, Oral, Daily folic acid 1 mg oral tablet, 1 mg= 1 tab, Oral, Daily levothyroxine 137 mcg (0.137 mg) oral tablet mupirocin 2% topical ointment Allergies Adhesive Bandage??(Rash) Glutens??(Abdominal pain, Rash) amoxicillin??(Diarrhea) ibuprofen??(Abdominal pain) aspirin??(Abdominal pain) Social History Alcohol Current, 1-2 times per year Electronic Cigarette/Vaping Electronic Cigarette Use: Never. Substance Use Never Tobacco Never tobacco user Tobacco Use:. Electronically Signed on 01/05/23 09:19 AM Roberto Meyers MD Patient Care team information Care Team Personnel Name: Tanmay Long Position: No Access Member Role: Primary Care Physician Address: Address: [address] [place] [id number]- Care Team Related Persons Name: NICOLE MCDONOUGH Address: Home [address] [place], [place] [id number] [facility]
--- OUTSIDE RECORDS SUMMARY | 2023-04-25 13:49 | XMS_ITS | Continuity of Care Document ---
Author Name Unknown Organization [facility] Ambulatory Clinics Address [address] [place] [address] Care Team Providers Care Senior Finance Manager Name Role Phone Tanmay Long Primary Care Physician Encounter [facility] [facility] NBR [id number] Date(s): 01/26/23 - 01/26/23 [facility] Ambulatory [facility] [address] [place] [address]- Encounter Diagnosis Distal radius fracture, left(Discharge Diagnosis) - 01/26/23 Discharge Disposition: Home or Self Care Attending Physician: Roberto Meyers MD Allergies, Adverse Reactions, Alerts Substance Reaction Severity Status ibuprofen Abdominal pain Mild Active amoxicillin Diarrhea Mild Active aspirin Abdominal pain Unknown Active Adhesive Bandage Rash Mild Active Glutens Abdominal pain Rash Mild Active Assessment and Plan Future Appointments Functional Status 01/26/23 Other exposure to Infectious Disease Non e [...] Confirmed Active Thyroid disease Confirmed Active 1per [facility] record use right nare 2limited 3w[facility]ap [facility] Procedures Procedure Date Related Diagnosis Body [...] Most recent to oldest [Reference Range]: 1 2 Peripheral Pulse Rate [60-100 bpm] 78 bp m (01/26/23 8:43 AM) 77 bpm (01/26/23 8:40 AM) Blood Pressure [90-140/60-90 mmHg] 140/8 0mmHg (01/26/23 8:43 AM) 140/80mmHg (01/26/23 8:40 AM) Weight 74.84 kg (01/26/23 8:43 AM) 74.84 kg (01/26/23 8:40 AM) Weight Measured (lbs) 164.994 lb (01/26/23 8:43 AM) 164.994 lb (01/26/23 8:40 AM) Height 144.78 cm (01/26/23 8:43 AM) 144.79 cm (01/26/23 8:40 AM) Height/Length Measured (inches) 57 inch (01/26/23 8:43 AM) 57 inch (01/26/23 8:40 AM) BSA Measured 1.73 m2 (01/26/23 8:43 AM) 1.73 m2 (01/26/23 8:40 AM) Body Mass Index 35.7 kg/m2 (01/26/23 8:43 AM) 35.7 kg/m2 (01/26/23 8:40 AM) Social History Social History Type Response [...] Unknown Unknown Unknown Active Unknown Unknown Unknown [id number] Unknown Unknown Unknown Unknown Active Unknown Unknown Unknown [email or web address] feb20,2 023 Unknown Unknown Unknown Unknown Active Unknown Physician Outpatient Note * Roberto Meyers MD: PERFORM Event Display: Office Clinic Note Physician Authored Date: [id number] JENNIFER MCDONOUGH :1950 Age:72 years Sex:Female [id number] Visit Date:01/26/2023 Primary Care Physician: Tanmay Long Chief Complaint LEFT WRIST 3 WK F\U History of Present Illness I am following up with this patient who is now 5 weeks??after her??ORIF??of her left distal radius fracture.?? She has been doing very well. ??She is complaining of some occasional discomfort mostly over the ulnar side of her wrist.?? But she feels that she is recovering her range of motion very well just doing exercises on her own. Review of Systems Constitutional:?No??fevers,?No??chills,?No??sweats Eye:?No??recent visual problems ENT:?No??ear pain,?No??nasal congestion,?No??sore throat Respiratory:?No??shortness of breath,?No??cough Cardiovascular:?No??Chest pain,?No??palpitations,?No??syncope Gastrointestinal:?Nonausea,?No??vomiting,?No??diarrhea Genitourinary:?No??hematuria Freddie/Lymph:?No??bruising tendency,?No??swollen lymph glands Endocrine:?No??excessive thirst,??No??excessive hunger Musculoskeletal:??No??back pain,??No??neck pain,??No??joint pain,??No??muscle pain,??No??decreased range of motion Integumentary:?No??rash,?No??pruritus,?No??abrasions Neurologic: Alert & oriented X 4 Psychiatric:?No??anxiety,?No??depression Physical Exam Vitals & Measurements HR:??78??(Peripheral)?? BP:??140/80?? SpO2:??98%?? HT:??144.78??cm?? WT:??74.84??kg?? BMI:??35.7?? Pain Score:??3?? BSA:??1.73?? General: Alert and oriented, well nourished,?No??acute distress Eye: PERRL, EOMI,?Normal??conjunctiva HENT: Normocephalic, clear tympanic membranes,?Normal?? hearing, moist oral mucosa,?No??scleral icterus,?No??sinus tenderness Neck: Supple, non-tender,?No??carotid bruits,?No??JVD,?No??lymphadenopathy Lungs:??Clear to auscultation?? Respiration:??Non-Labored Heart:?Normal?? rate,?Regular??rhythm,?No??murmur,?No??gallop,?No??edema Breast:?No??lumps,?No??bumps,?No??scars,?Normal?? nipples Abdomen: Soft, non-tender, non-distended,?Normal?? bowel sounds,?No??masses Musculoskeletal:?Normal?? range of motion and strength,?No??tenderness,?No??swelling Skin: Skin is warm, dry and pink,?No??rashes,?No??lesions Neurologic: Awake, alert and oriented X4, CN II-XII intact Psychiatric: Cooperative, appropriate mood and affect ?? On the physical exam,??the surgical wound is looking great. ??There is no redness and there is no drainage.?? Her neurovascular status is normal.?? There is no obvious deformity and the alignment looks great on the physical exam.?? Her fingers are moving normally.?? In terms of range of motion of the wrist,??she has probably at least 90% of range of motion already back.?? She is probably missing 10 to 15 degrees at most of dorsiflexion and about the same in terms of palmar flexion. ??Her pronation and supination's are complete. ?? X-rays were done today showing that everything is still in perfect anatomic position on all views. ??All the implants are in good position with no signs of loosening. Assessment/Plan 1.??Distal radius fracture, left??S52.502A So overall the patient is doing extremely well both clinically and radiologically. ??She has regained already about 90% of her range of motion. ??I am quite confident that over the next month or so??she will probably regain most of the rest.?? She still experiencing some occasional discomfort whichis totally normal and I told her that its bargain to take another month or so for things to be backto normal.?? Again I think her long-term result is going to be excellent. ??She is doing so well that I do not think she needs to come and see me back again.?? If in a month from now she still experiencing a fair amount of issues and/or she has concerns, she is more than welcome to give us??a call so we can reassess the situation. Problem List/Past Medical History Ongoing Arthritis Celiac [...] tobacco user Tobacco Use:. Electronically Signed on 01/26/23 08:51 AM Roberto Meyers MD Patient Care team information Care Team Personnel Name: Tanmay Long Position: No Access Member Role: Primary Care Physician Address: Address: [address] [place] [id number] [place] Care Team Related Persons Name: NICOLE MCDONOUGH Address: Home [address] [place], [place] [id number] [facility]
--- OUTSIDE RECORDS SUMMARY | 2023-04-25 13:49 | XMS_ITS | Continuity of Care Document ---
Author Name Unknown Organization [facility] Address [address] [place] [id number] Care Team Providers Care Solutions Architect Consultant Name Role Phone Tanmay Long Primary Care Physician Encounter [facility] NBR [id number] Date(s): 01/05/23 - 01/05/[address] [address]- Discharge Disposition: Home or Self Care Attending Physician: Roberto Meyers MD Admitting Physician: Roberto Meyers MD Referring Physician: Roberto Meyers MD Allergies, Adverse Reactions, Alerts Substance Reaction Severity Status ibuprofen Abdominal pain Mild Active amoxicillin Diarrhea Mild Active aspirin Abdominal pain Unknown Active Adhesive Bandage Rash Mild Active Glutens Abdominal pain Rash Mild Active Assessment and Plan Future Appointments Medications Eligen B12 1000 mcg oral tablet [...] Thyroid disease Confirmed Active 1per [facility] record use right nare 2limited 3wears cpap at [facility] Procedures Procedure Date Related Diagnosis Body Site Status Open Reduction Internal Fixa tion Wrist (Left) 1 12/24/22 Completed Arthroscopic knee operation Completed CTR - carpal tunnel release Completed EGD - Esophagogastroduodenoscopy Completed Laparoscopic bilateral salpingo-oophorectomy Completed Release of trigger finger Completed Tonsillectomy and adenoidectomy Completed Tympanoplasty 2 Completed 1auto-populated from documented surgical case 2many Results Radiology Reports * Exam Date Time Procedure Performing Provider Status 01/05/23 8:24 AM XR Wrist Complete 3+ Views Left Paula Qureshi; Raymond (Verified) Notes: (XR Wrist Complete 3+ Views Left) Reason For Exam: Left distal radius ORIF XR Wrist Complete 3+ Views Left EXAM DESCRIPTION: XR Wrist Complete 3+ Views Left 01/05/2023 INDICATION: LEFT DISTAL RADIUS ORIF COMPARISON: Intraoperative spot views of the left wrist from 12/24/2022 IMPRESSION: Cast material obscures fine osseous detail Status post ORIF of traumatic distal left radius fracture with locking plate fixation apparatus. Alignment is stable and satisfactory. Hardware appears intact. Fracture lines remain visible No additional fracture with no dislocation. JOB #: [id number] Final Signed by: River Boateng MD Signed (Electronic Signature): 01/05/2023 8:30 am Social History Social History Type Response Tobacco [...] Unknown Unknown Unknown Active Unknown Unknown Unknown [id number] Unknown Unknown Unknown Unknown Active Unknown Unknown Unknown [id number] feb20,2 023 Unknown Unknown Unknown Unknown Active Unknown XR Wrist - left GE 3 Views * River Boateng MD: VERIFY, VERIFY Event Display: Report EXAM DESCRIPTION: XR Wrist Complete 3+ Views Left 01/05/2023 INDICATION: LEFT DISTAL RADIUS ORIF COMPARISON: Intraoperative spot views of the left wrist from 12/24/2022 IMPRESSION: Cast material obscures fine osseous detail Status post ORIF of traumatic distal left radius fracture with locking plate fixation apparatus. Alignment is stable and satisfactory. Hardware appears intact. Fracture lines remain visible No additional fracture with no dislocation. JOB #: [id number] Final Signed by: River Boateng MD Signed (Electronic Signature): 01/05/2023 8:30 am Patient Care team information Care Team Personnel Name: Tanmay Long Position: No Access Member Role: Primary Care Physician Address: Address: [address] [place] [id number] Care Team Related Persons Name: NICOLE MCDONOUGH Address: Home [address] [place], [place] [phone] [facility]
--- OUTSIDE RECORDS SUMMARY | 2023-04-25 13:49 | XMS_ITS | Continuity of Care Document ---
Author Name Unknown Organization [facility] Ambulatory Clinics Address [address] [place] [address] Care Team Providers Care Coil Winder Strap Name Role Phone Tanmay Long Primary Care Physician Encounter [facility] NBR [id number] Date(s): 01/06/23 - 01/06/23 [facility] Ambulatory Clinics [address] [place] [address]- Encounter Diagnosis Carpal tunnel syndrome of right wrist(Discharge Diagnosis) - 01/06/23 Discharge Disposition: Home or Self Care Attending Physician: Gianna Nunez LINOLEUM LAYER, Allergies, Adverse Reactions, Alerts Substance Reaction Severity Status ibuprofen Abdominal pain Mild Active amoxicillin Diarrhea Mild Active aspirin Abdominal pain Unknown Active Adhesive Bandage Rash Mild Active Glutens Abdominal pain Rash Mild Active Assessment and Plan Future Appointments Functional Status 01/06/23 Other exposure to Infectious Disease Non e [...] Confirmed Active Thyroid disease Confirmed Active 1per [facility] record use right nare 2limited 3wears cpap at [facility] Procedures Procedure Date Related Diagnosis Body Site [...] Range]: 1 Peripheral Pulse Rate [60-100 bpm] 76 bp m (01/06/23 9:12 AM) Blood Pressure [90-140/60-90 mmHg] 134/7 0mmHg (01/06/23 9:12 AM) Weight 75 kg (01/06/23 9:12 AM) Weight Measured (lbs) 165.347 lb (01/06/23 9:12 AM) Height 145 cm (01/06/23 9:12 AM) Height/Length Measured (inches) 57.09 in ch (01/06/23 9:12 AM) BSA Measured 1.74 m2 (01/06/23 9:12 AM) Body Mass Index 35.67 kg/m2 (01/06/23 9:12 AM) Social History Social History Type Response [...] Unknown Unknown Unknown Active Unknown Unknown Unknown [id number] Unknown Unknown Unknown Unknown Active Unknown Unknown Unknown m1l4 feb20,2 023 Unknown Unknown Unknown Unknown Active Unknown Hospital Discharge Instructions Follow Up Care 12/04/2022 10:08:54 With:Gianna Nunez LUIS, Address: [address] [place] [address]- When: Unknown Comments:Gianna will call s/p EMGs?? Physician Outpatient Note * Gianna Nunez APRN,: PERFORM Event Display: Office Clinic Note Physician Authored Date: [id number] JENNIFER MCDONOUGH :1950 Age:72 years Sex:Female MRN:[id number] Visit Date:01/06/2023 Primary Care Physician: Tanmay Long Chief Complaint Right carpal tunnel f/u, numbness History of Present Illness Jennifer is a pleasant 72-year-old woman who is well-known to the practice.?? She went through carpaltunnel release with Dr. Thomas in December 2021.?? She did reasonably well after that surgery, her carpal tunnel symptoms improved. ??However she struggled??with scar tissue and adhesions. ??She was vigilant with scar massage, went to occupational therapy and found these measures to be helpful. ??However over the past few months she has noticed a return in her carpal tunnel symptoms. ??She describes numbness and tingling in the median distribution.?? She also reports a remote injury to the right thumb, dislocation, years ago which was treated nonoperatively.?? She states this causes some discomfort as well, but her primary complaint??is the carpal tunnel symptoms. ?? Of note she went through carpal tunnel release on the left about 10 years ago??without a recurrence in symptoms. ??She is also status post ORIF on the left wrist with Dr. Meyers, is doing well with this. Review of Systems Constitutional:?No??fevers,?No??chills,?No??sweats Respiratory:?No??shortness of breath,?No??cough Cardiovascular:?No??Chest pain,?No??palpitations,?No??syncope Gastrointestinal:?Nonausea,?No??vomiting,?No??diarrhea Musculoskeletal:??No??back pain,??No??neck pain,??No??joint pain,??No??muscle pain,??No??decreased range of motion Integumentary:?No??rash,?No??pruritus,?No??abrasions Neurologic: Alert & oriented X 4 Psychiatric:?No??anxiety,?No??depression Physical Exam Vitals & Measurements HR:??76??(Peripheral)?? BP:??134/70?? SpO2:??98%?? HT:??145??cm?? WT:??75??kg?? BMI:??35.67?? BSA:??1.74?? The patient is alert and oriented x3. ??Pleasant and cooperative. ??Well-dressed and well-groomed.?? Appears stated age and is well-nourished and well- developed.?? Examination of the right wrist and hand reveals that there is significant thenar atrophy, she states that this is??longstanding.?? Otherwise no deformity.?? Carpal tunnel incision has fully healed without significant scar adhesions to palpation.?? Gentle, passive range of motion of the wrist is intact. ??Radial pulses 2+. ??Patient is able to make a composite fist with ease??and extend all fingers without difficulty. ??Tinel's signand Phalen's test are positive. ??Skin is warm and pink with brisk capillary refill. ??Sensation isdiminished to light touch throughout the median distribution. Assessment/Plan 1.??Carpal tunnel syndrome of right wrist??G56.01 Jennifer is a pleasant 72-year-old woman??who is a year status post right carpal tunnel release with Dr. Thomas.?She struggled a bit with scar tissue and adhesions postoperatively, but responded nicely to scar massage and therapy. ??Her carpal tunnel symptoms improved. ??Unfortunately over the past 3 months she has had a recurrence in numbness and tingling in the median distribution.?? Provocative maneuvers are positive on exam.?? Unfortunately think she has had a recurrence??of the carpal tunnel.?? Although she states she only had symptoms 6 months prior to her surgery, I think she likely had??severe carpal tunnel as she has significant thenar atrophy.?? In terms of additional treatment and work-up we discussed cortisone injection, bracing, therapy, EMG studies.?? She would like to move forward with EMG studies which I think is??an excellent plan. ??In the meantime she will continue with all supportive care.?? I will give her a call once I have her EMG results.?? She is encouraged to contact me with questions or concerns anytime.?? I spent 20 minutes in reviewing the record, seeing the patient and documenting in the medical record. Referral Orders Referral Management, Medical Service: Neurology, Reason: RUE EMGs, Type: Procedure, Refer To: Fernando Gonzalez MD, Neurology, --., Start: 01/06/23, Instructions: Please call pt to schedule. Thanks! Follow Up Instructions With When Contact Information Gianna Nunez LINOLEUM LAYER, [address] [place] [address]- Additional Instructions: Gianna will call s/p EMGs?? Problem List/Past Medical History Ongoing Arthritis Celiac [...] tobacco user Tobacco Use:. Electronically Signed on 01/06/23 09:53 AM Gianna Nunez APRN, Patient Care team information Care Team Personnel Name: Tanmay Long Position: No Access Member Role: Primary Care Physician Address: Address: [address] [place] [address]- Care Team Related Persons Name: NICOLE MCDONOUGH Address: Home [address] [place], [place] [id number] [facility]
--- OUTSIDE RECORDS SUMMARY | 2023-04-25 13:49 | XMS_ITS | Continuity of Care Document ---
Author Name Unknown Organization [facility] Ambulatory Clinics Address [address] [place] [address] Care Team Providers Care Architectural Inspector Name Role Phone Tanmay Long Primary Care Physician Encounter [facility] NBR [id number] Date(s): 04/17/23 - 04/17/23 [facility] Ambulatory Clinics [address] [place] [address]- Encounter Diagnosis Carpal tunnel syndrome of right wrist(Discharge Diagnosis) - 04/15/23 Discharge Disposition: Home or Self Care Attending Physician: Gianna Nunez APRN, Admitting Physician: Gianna Nunez APRN, Allergies, Adverse Reactions, Alerts Substance Reaction Severity Status ibuprofen Abdominal pain Mild Active amoxicillin Diarrhea Mild Active aspirin Abdominal pain Unknown Active Adhesive Bandage Rash Mild Active Glutens Abdominal pain Rash Mild Active Functional Status 04/17/23 Other exposure to Infectious Disease Non e [...] Confirmed Active Thyroid disease Confirmed Active 1per [facility] record use right nare 2limited 3wears cpap at [facility] Procedures Procedure Date Related Diagnosis Body Site [...] Pulse Rate [60-100 bpm] 76 bp m (04/17/23 8:41 AM) Blood Pressure [90-140/60-90 mmHg] 132/7 4mmHg (04/17/23 8:41 AM) Social History Social History Type Response [...] Unknown Unknown Unknown Active Unknown Unknown Unknown [id number] Unknown Unknown Unknown Unknown Active Unknown Unknown Unknown m1l4 feb20,2 023 Unknown Unknown Unknown Unknown Active Unknown Hospital Discharge Instructions Follow Up Care 04/13/2023 10:17:31 With:Return to this practice Address: When: only if needed Physician Outpatient Note * Gianna Nunez INTERNATIONAL LOGISTICS COORDINATOR,: PERFORM Event Display: Office Clinic Note Physician Authored Date: [id number] JENNIFER MCDONOUGH :1950 Age:72 years Sex:Female MRN:[id number] Visit Date:04/17/2023 Primary Care Physician: Tanmay Long Chief Complaint Right CTR follow up History of Present Illness Jennifer is a very pleasant 72-year-old woman who is well-known to Dr. Thomas' practice.?? She underwent right carpal tunnel release??about a year ago.?? She struggled a bit with scar tissue and adhesions postoperatively,??but??responded well to scar massage and therapy.?? Her carpal tunnel symptomsimproved.?? 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 ??She has nocturnal symptoms.?? At times the hand becomes painful.?? She is never??tried a brace??or cortisoneinjections.?? She was referred for electrodiagnostics and she is here today to discuss those results. Review of Systems Constitutional:?No??fevers,?No??chills,?No??sweats Respiratory:?No??shortness of breath,?No??cough Cardiovascular:?No??Chest pain,?No??palpitations,?No??syncope Gastrointestinal:?Nonausea,?No??vomiting,?No??diarrhea Musculoskeletal:??No??back pain,??No??neck pain,??No??joint pain,??No??muscle pain,??No??decreased range of motion Integumentary:?No??rash,?No??pruritus,?No??abrasions Neurologic: Alert & oriented X 4 Psychiatric:?No??anxiety,?No??depression Physical Exam Vitals & Measurements HR:??76??(Peripheral)?? BP:??132/74?? SpO2:??98%?? The patient is alert and oriented x3. ??Pleasant and cooperative. ??Well-dressed and well-groomed.?? Appears stated age and is well-nourished and well- developed.?? Examination of the right wrist and hand reveals??thenar atrophy from??thumb injury years ago, this is nothing new according to the patient.?? Radial pulse is 2+. ??She has full range of motion at the wrist.?? Patient is able to make a composite fist with ease and extend all fingers without difficulty. ??Sensation is diminished to light touch throughout the median distribution.?? Skin is warm and pink with brisk capillary refill. Assessment/Plan 1.??Carpal tunnel syndrome of right wrist??G56.01 Jennifer is a pleasant 72-year-old woman??who has been struggling with right carpal tunnel syndrome. ??She underwent carpal tunnel release??about a year ago, struggled a bit postoperatively with scar tissue and adhesions, but this improved with therapy.?? Her??carpal tunnel symptoms improved, but unfortunately returned a few months ago.?? She recently had electrodiagnostics with Dr. Solis at [facility] which confirmed??carpal tunnel syndrome.?? We discussed treatment moving forward including bracing, cortisone injection, revision surgery.?? At this point she would like to try her brace and consider??her options.?? Once she decides how she would like to proceed, she will give me a call and letme know.?? She may continue with all supportive care.?? She was fit with a brace today.?? She is encouraged to contact me with questions or concerns anytime. ??I spent 20 minutes in reviewing the record, seeing the patient and documenting in the medical record. Follow Up Instructions With When Contact Information Return to this practice Only if needed Additional Instructions: Problem List/Past Medical History Ongoing Arthritis Celiac [...] tobacco user Tobacco Use:. Electronically Signed on 04/17/23 09:12 AM Gianna Nunez APRN, Patient Care team information Care Team Personnel Name: Tanmay Long Position: No Access Member Role: Primary Care Physician Address: Address: [address] [place] [address]- Care Team Related Persons Name: NICOLE MCDONOUGH Address: Home [address] [place], [place] [id number] [facility]
--- OUTSIDE RECORDS SUMMARY | 2023-04-25 13:49 | XMS_ITS | Continuity of Care Document ---
Author Name Unknown Organization [facility] Address [address] [place] [id number] Care Team Providers Care Medical Advisor Name Role Phone Tanmay Long Primary Care Physician [phone] Encounter [facility] NBR [id number] Date(s): 12/24/22 - 12/24/[address] [address]- [place] Discharge Disposition: Home f/u External Provider Attending Physician: Roberto Meyers MD Admitting Physician: Roberto Meyers MD Referring Physician: Roberto Meyers MD Allergies, Adverse Reactions, Alerts Substance Reaction Severity Status ibuprofen Abdominal pain Mild Active amoxicillin Diarrhea Mild Active aspirin Abdominal pain Unknown Active Adhesive Bandage Rash Mild Active Glutens Abdominal pain Rash Mild Active Assessment and Plan Future Appointments Functional Status 12/24/22 Anti-Embolism Device Activity: Removed Anti-Embolism Device Removal Reason: Dis continued Anti-Embolism Site Condition: No complic ations Orthopedic/Preventive Devices Sling Orthopedic Device Cares Performed Yes 12/24/22 Family Member [facility] Recent Travel History No recent travel Other exposure to Infectious Disease Non e [...] Confirmed Active Thyroid disease Confirmed Active 1per [facility] record use right nare 2limited 3wears cpap at [facility] Procedures Procedure Date Related Diagnosis Body Site [...] Exam Date Time Procedure Performing Provider Status 12/24/22 10:07 AM XR Wrist 2 Views Left Claire Allen [facility] (Verified) Notes: (XR Wrist 2 Views Left) Reason For Exam: ORIF Left Wrist XR Wrist 2 Views Left EXAM DESCRIPTION: XR Wrist 2 Views Left 12/24/2022 INDICATION: ORIF LEFT WRIST IMPRESSION: Intraoperative fluoroscopy with spot views was provided Fluoroscopy time 93.9 seconds, 3 images Status post ORIF of the distal left radius with locking plate fixation apparatus. Alignment is satisfactory. JOB #: [id number] Final Signed by: River Boateng MD Signed (Electronic Signature): 12/24/2022 10:09 am Vital Signs Most recent to oldest [Reference Range]: 1 2 3 Temperature Temporal Artery [36-38 Deg C] 36.2 Deg C (12/24/22 9:00 AM) 36.3 Deg C (12/24/22 8:25 AM) 37.0 Deg C (12/24/22 6:22 AM) Temperature Temporal Artery (DegF) [97.3-100 Deg F] 97.34 Deg F (12/24/22 8:25 AM) Peripheral Pulse Rate [60-100 bpm] 77 bpm (12/24/22 9:00 AM) 74 bpm (12/24/22 8:43 AM) 85 bpm (12/24/22 8:35 AM) Heart Rate Monitored [60-100 bpm] 70 bpm (12/24/22 6:22 AM) Respiratory Rate [12-24 br/min] 20 br/min (12/24/22 6:22 AM) Blood Pressure [90-140/60-90 mmHg] 137/81mmHg (12/24/22 9:00 AM) 134/78mmHg (12/24/22 8:43 AM) 142/83mmHg *HI* (12/24/22 8:35 AM) Mean Arterial Pressure, Cuff [65-140 mmHg] 97 mmHg (12/24/22 8:43 AM) 103 mmHg (12/24/22 8:35 AM) 90 mmHg (12/24/22 8:25 AM) Mean Arterial Pressure Cuff 93 mmHg (12/24/22 8:43 AM) 98 mmHg (12/24/22 8:35 AM) 89 mmHg (12/24/22 8:25 AM) Blood Pressure Location Right arm (12/24/22 6:22 AM) Blood Pressure Method Automatic (12/24/22 6:22 AM) Weight 75.000 kg (12/23/22 11:01 AM) Weight Dosing 75.000 kg (12/23/22 11:01 AM) Height 145.000 cm (12/23/22 11:01 AM) Height/Length Dosing 145.000 cm (12/23/22 11:01 AM) Social History Social History Type Response [...] Unknown Unknown Unknown Active Unknown Unknown Unknown [id number] Unknown Unknown Unknown Unknown Active Unknown Unknown Unknown m1l4 feb20,2 023 Unknown Unknown Unknown Unknown Active Unknown Procedure note * Penny Omalley: PERFORM Event Display: Procedure Note Authored Date: [id number] 12/24/2022 07:55:35 Surgical Procedure: Left ORIF Wrist Indication: Surgeon requested for post-op pain management ??Place of service: [facility] TIME OUT: Block type: Supraclavicular Side: Left Patient position: Semi-flowlers Pre-medication: [id number] IV Level of sedation: Sedated, easily aroused and able to follow directions Monitors: Pulse oximetery Oxygen: _ Prep done using chloroprep Injection made keeping needle tip and spread of anesthetic in ultrasound view using 22g 50mm??needle. Negative aspirate q5 mL. No heme. No parethsesia. Local anesthetic: Bupivicaine0.5% 15ml??, lidocaine 2% skin wheel Adjuncts: [id number] Electronically Signed on 12/24/22 07:57 AM Penny Omalley XR Wrist - left 2 Views * River Boateng MD: VERIFY, VERIFY Event Display: Report EXAM DESCRIPTION: XR Wrist 2 Views Left 12/24/2022 INDICATION: ORIF LEFT WRIST IMPRESSION: Intraoperative fluoroscopy with spot views was provided Fluoroscopy time 93.9 seconds, 3 images Status post ORIF of the distal left radius with locking plate fixation apparatus. Alignment is satisfactory. JOB #: [id number] Final Signed by: River Boateng MD Signed (Electronic Signature): 12/24/2022 10:09 am Patient Care team information Care Team Personnel Name: Tanmay Long Position: No Access Member Role: Primary Care Physician Address: Address: [address] [place] [address] Care Team Related Persons Name: NICOLE MCDONOUGH Address: Home [address] [place], [place] [id number] [facility] [[email or web address]]
--- OUTSIDE RECORDS SUMMARY | 2023-04-25 13:49 | XMS_ITS | Continuity of Care Document ---
Author Name Unknown Organization [facility] Address [address] [place] [id number] Care Team Providers Care Manufacturing Coordinator Name Role Phone Tanmay Long Primary Care Physician [phone] Encounter [facility] NBR [id number] Date(s): 01/26/23 - 01/26/[address] [address]- [place] Discharge Disposition: Home or Self Care Attending Physician: Roberot Meyers MD Admitting Physician: Roberto Meyers MD Allergies, Adverse Reactions, [...] Confirmed Active Thyroid disease Confirmed Active 1per [facility] record use right nare 2limited 3wears cpap at [facility] Procedures Procedure Date Related Diagnosis Body [...] Exam Date Time Procedure Performing Provider Status 01/26/23 8:40 AM XR Wrist Complete 3+ Views Left Paula Qureshi; Raymond (Verified) Notes: (XR Wrist Complete 3+ Views Left) Reason For Exam: wrist fx XR Wrist Complete 3+ Views Left EXAM DESCRIPTION: XR Wrist Complete 3+ Views Left 01/26/2023 INDICATION: WRIST FX COMPARISON: 01/05/2023 IMPRESSION: Status post ORIF of traumatic distal left radius fracture with locking plate fixation apparatus. Alignment is stable and satisfactory. Hardware appears intact. Fracture line remains partially visible No additional fracture with no dislocation No significant regional arthritic changes. JOB #: [id number] Final Signed by: River Boateng MD Signed (Electronic Signature): 01/26/2023 8:45 am Social History Social History Type Response [...] Unknown Unknown Unknown Active Unknown Unknown Unknown [id number] Unknown Unknown Unknown Unknown Active Unknown Unknown Unknown [id number] feb20,2 023 Unknown Unknown Unknown Unknown Active Unknown XR Wrist - left GE 3 Views * River Boateng MD: VERIFY, VERIFY Event Display: Report EXAM DESCRIPTION: XR Wrist Complete 3+ Views Left 01/26/2023 INDICATION: WRIST FX COMPARISON: 01/05/2023 IMPRESSION: Status post ORIF of traumatic distal left radius fracture with locking plate fixation apparatus. Alignment is stable and satisfactory. Hardware appears intact. Fracture line remains partially visible No additional fracture with no dislocation No significant regional arthritic changes. JOB #: [id number] Final Signed by: River Boateng MD Signed (Electronic Signature): 01/26/2023 8:45 am Patient Care team information Care Team Personnel Name: Tanmay Long Position: No Access Member Role: Primary Care Physician Address: Address: [address] [place] [address] Care Team Related Persons Name: NICOLE MCDONOUGH Address: Home [address] [place], [place] [id number] [place]
--- OUTSIDE RECORDS SUMMARY | 2023-04-25 13:50 | XMS_ITS | Continuity of Care Document ---
Author Name Unknown Organization [facility] Ambulatory Clinics Address [address] [place] [address] Care Team Providers Care Lead Manufacturing Engineer Name Role Phone Tanmay Long Primary Care Physician [phone] Encounter [facility] FIN NBR [id number] Date(s): 12/23/22 - 12/23/22 [facility] Ambulatory Clinics [address] [place] [address]- Encounter Diagnosis Distal radius fracture, left(Discharge Diagnosis) - 12/23/22 Discharge Disposition: Home or Self Care Attending Physician: Roberto Meyers MD Allergies, Adverse Reactions, Alerts Substance Reaction Severity Status ibuprofen Abdominal pain Mild Active amoxicillin Diarrhea Mild Active aspirin Abdominal pain Unknown Active Adhesive Bandage Rash Mild Active Glutens Abdominal pain Rash Mild Active Assessment and Plan Future Appointments Functional Status 12/23/22 Other exposure to Infectious Disease Non e [...] Confirmed Active Thyroid disease Confirmed Active 1per [facility] record use right nare 2limited 3wears cpap at [facility] Procedures Procedure Date Related Diagnosis Body Site [...] Range]: 1 Peripheral Pulse Rate [60-100 bpm] 72 bp m (12/23/22 8:20 AM) Blood Pressure [90-140/60-90 mmHg] 134/8 0mmHg (12/23/22 8:20 AM) Weight 74.84 kg (12/23/22 8:20 AM) Weight Measured (lbs) 164.994 lb (12/23/22 8:20 AM) Height 142.24 cm (12/23/22 8:20 AM) Height/Length Measured (inches) 56 inch (12/23/22 8:20 AM) BSA Measured 1.72 m2 (12/23/22 8:20 AM) Body Mass Index 36.99 kg/m2 (12/23/22 8:20 AM) Social History Social History Type Response [...] Unknown Unknown Unknown Active Unknown Unknown Unknown [id number] Unknown Unknown Unknown Unknown Active Unknown Unknown Unknown [id number] feb20,2 023 Unknown Unknown Unknown Unknown Active Unknown Physician Outpatient Note * Roberto Meyers MD: PERFORM Event Display: Office Clinic Note Physician Authored Date: [id number] JENNIFER MCDONOUGH :1950 Age:72 years Sex:Female MRN:[id number] Visit Date:12/23/2022 Primary Care Physician: Tanmay Long Chief Complaint L wrist fx 12/20- seen @ [facility] ED same day History of Present Illness I am seeing this 72 years old patient for the first time today.?? 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 Otherwise she had no previous history of issues with anesthesia. ??She is not known for??any allergies to medication or antibiotics. ?? She was??outside grabbing some [place] [employer]??this weekend and, most probably because of ice, she slipped and fell backward directly on her??left upper limb.?? She instantly had pain and a deformity of her left distal radius. ??She went to[facility]where an x-ray was done??confirming the fracture of the left distal radius. ??They proceeded with a closed reduction??under sedation??and positioning of splint.?? The patient after that contacted us for further assessment and care. ?? Over the weekend she has been reasonably comfortable with this plan. ??She did loosen it up a little bit as she got a fair amount of swelling of her hand.?? She is not complaining of any other issues and she did not suffer any other injuries.?? She was not experiencing any problems with this andher wrist before this injury. Review of Systems Constitutional:?No??fevers,?No??chills,?No??sweats Eye:?No??recent visual problems ENT:?No??ear pain,?No??nasal congestion,?No??sore throat Respiratory:?No??shortness of breath,?No??cough Cardiovascular:?No??Chest pain,?No??palpitations,?No??syncope Gastrointestinal:?Nonausea,?No??vomiting,?No??diarrhea Genitourinary:?No??hematuria Freddie/Lymph:?No??bruising tendency,?No??swollen lymph glands Endocrine:?No??excessive thirst,??No??excessive hunger Musculoskeletal:??No??back pain,??No??neck pain,??No??joint pain,??No??muscle pain,??No??decreased range of motion Integumentary:?No??rash,?No??pruritus,?No??abrasions Neurologic: Alert & oriented X 4 Psychiatric:?No??anxiety,?No??depression Physical Exam Vitals & Measurements HR:??72??(Peripheral)?? BP:??134/80?? SpO2:??99%?? HT:??142.24??cm?? WT:??74.84??kg?? BMI:??36.99?? Pain Score:??4?? BSA:??1.72?? General: Alert and oriented, well nourished,?No??acute distress [...] Psychiatric: Cooperative, appropriate mood and affect ?? Patient comes to see me today and she is in a sling and a splint.?? She is able to move her fingersquite well. ??She is not complaining of any numbness.?? She has normal capillary refill. ?? I reviewed the x-rays that were done at [facility]. ??Patient initially presented with a fair amount of displacement and shortening dorsally.?? They did a closed reduction and the??reduction is??fairlyreasonable.?? On the AP view it is nearly perfect.?? On the lateral view, she still has a??moderateamount of??translation dorsally??with also some angulation.?? The x-rays are also showing dorsal com minution. Assessment/Plan Distal radius fracture, left??S51.356A So I explained to her the situation.?? Her wrist is actually in the??reasonable position right now.?? I think this dorsal translation and slight angulation is acceptable.?? But I think there is??a fairly high risk that this fracture might be displaced since there is some dorsal comminution and the reduction is not perfect.?? We could put her in a cast but we would probably need to watch her very closely for the first 2 weeks to make sure that there is no further displacement, which would warrant surgery.?? The other option is to consider doing surgery right away, which would involve an open reduction total fixation with plate and screws.?? There are some issues associated with the surgery in cluding??wound infection, neurovascular injury, bleeding which is unusual, potential issues with hardware in the long-term.?? There are some benefits with the surgery in the sense that we are going to be sure its been to be in perfect position, we also get to be sure that its not going to??read displaced??and also??it makes the recovery a bit easier as the patient would be in a splint for about 10 to 12 days and after that she would need any further immobilization.?? That allows the patient to use her wrist earlier and also minimizes the risk of stiffness in the long-term.?? After discussing the pros and cons of both options,??patient has decided she wanted to go ahead with surgery.?? So wehave an opening for tomorrow morning.?? I am not too concerned with her neck issue, as we do most of the surgeries under regional block.?? But we will obviously??make sure that??anesthesia is aware of her condition??for the procedure. Ordered: Surgical Procedure Booking Request LTTL, 12/23/22 8:45:00 EST, left distal radius fx, Distal radiusfracture, left, Outpatient, ORIF, Primary Procedure, 1, Special equipment needed (include C-Arm requests)?, CORROSION TECHNICIAN, 37, Roberto Meyers MD, Acumed distal radius; pain table; mini C ?? Problem List/Past Medical History Ongoing Hearing loss Historical No qualifying data Medications Eligen B12 1000 mcg oral tablet, 1 tab, Oral, Daily folic acid 1 mg oral tablet, 1 mg= 1 tab, Oral, Daily levothyroxine 137 mcg (0.137 mg) oral tablet mupirocin 2% topical ointment Allergies Glutens amoxicillin aspirin ibuprofen Social History Electronic Cigarette/Vaping Electronic Cigarette Use: Never. Tobacco Never tobacco user Tobacco Use:. Electronically Signed on 12/23/22 08:58 AM Roberto Meyers MD Patient Care team information Care Team Personnel Name: Tanmay Long Position: No Access Member Role: Primary Care Physician Address: Address: [address] [place] [id number] Care Team Related Persons Name: NICOLE MCDONOUGH Address: [address] [id number] [facility]
== END 2023-04-25 13:44 | disposition home or self-care (01) ==
LOC: LBN 13:43
PROVIDERS: PCP Nurse Practitioner Family; Visit Provider Nurse Practitioner Family
DX: R23.9 Unspecified skin changes (principal)
CPT/HCPCS: 88305

== ENCOUNTER 2023-05-14 03:07 | Outpatient (CLI) | payer MEDICARE, BC, SELFPAY ==
[2023-05-14 12:20] LABS: HCT 43.6 % (36.0-46.0); HGB 14.5 g/dL (11.2-15.7); MCH 31.7 pg (27.0-33.0); MCHC 33.3 % (32.0-36.0); MCV 95 fL (80-95); MPV 10.3 fL (8.0-11.0); Platelet Count 188 10^3/uL (130-400); RBC 4.57 10^6/uL (3.93-5.22); RDW 12.4 % (11.7-14.6); RDW-SD 43.6 fL; WBC 5.07 10^3/uL (4.4-10.8)
[2023-05-14 13:02] LABS: ALT 44 U/L (14-59); AST 24 U/L (15-37); Albumin 4.1 g/dL (3.4-5.0); Alkaline Phosphatase 105 U/L (46-116); Anion Gap 6.1 mmol/L (3-11); BUN 18 mg/dL (7-18); Bilirubin, Total 0.7 mg/dL (0.2-1.0); CO2 30.9 mmol/L (21.0-32.0); Calcium 9.2 mg/dL (8.5-10.1); Calculated LDL 127 mg/dL (<100); Chloride 104 mmol/L (98-107); Cholesterol 205 mg/dL (<200); Estimated GFR 60.61 (mL/min/1.73m2); Glucose 103 mg/dL (74-106); HDL Cholesterol 55 mg/dL (40-60); Sodium 141 mmol/L (136-145); TSH (W/Ref FT4) 8.96 uIU/mL (0.36-3.74); Total Protein 7.1 g/dL (6.4-8.2); Triglyceride 116 mg/dL (<150); Vitamin B12 537 pg/mL (193-986)
== END 2023-05-14 03:08 | disposition home or self-care (01) ==
LOC: LOS 03:16
PROVIDERS: PCP Nurse Practitioner Family; Visit Provider Nurse Practitioner Family
DX: E03.9 Hypothyroidism, unspecified (principal); E53.8 Deficiency of other specified B group vitamins; K90.0 Celiac disease; R79.89 Other specified abnormal findings of blood chemistry
CPT/HCPCS: 36415; 80053; 80061; 85027; 82607; 84439; 84443

== ENCOUNTER 2024-04-26 12:06 | Outpatient (REF) | payer MEDICARE, BC, SELFPAY ==
--- NOTE | 2024-04-26 11:45 | PAPFT_PTH ---
PATIENT: Sandrita San LOC: [facility] U#:[id number] AGE/SX: 73/F ROOM: RE04/26/[address]: Tanmay Breen DNP : 1950 BED: DIS: 04/26/2024 SPEC #: [id number] RECD: 04/27/24 13:10 STATUS: WILLIE REJosé Miguel #: [id number] VERÓNICA: 04/26/24 11:[address]: Tanmay Helm [facility] Cytology RECD BY: Micheline Vuong Tissues: 1 - CX/ENDOCX FOR PAP SMEARS Procedures: PAP THIN PREP/[facility] Screening HPV DNA PROBE Comments: [id number] (HPV 16 & 18/45)
--- OUTSIDE RECORDS SUMMARY | 2024-04-26 12:08 | XMS_ITS | Continuity of Care Document ---
Author Name Unknown Organization [facility] Ambulatory Clinics Address [address] [place] [address] Care Team Providers Care Supervisor Accounts Receivable Name Role Phone JANETT RODRÍGUEZ Primary Care Physician Encounter [facility] FIN NBR [id number] Date(s): 08/18/23 - 08/18/23 [facility]ics [address] [place], [place] [address] Encounter Diagnosis Carpal tunnel syndrome of right wrist(Discharge Diagnosis) - 08/18/23 Discharge Disposition: Home or Self Care Attending Physician: Giovana Weeks APRN Allergies, Adverse Reactions, Alerts Substance Reaction Severity Status ibuprofen Abdominal pain Mild Active amoxicillin Diarrhea Mild Active aspirin Abdominal pain Unknown Active Adhesive Bandage Rash Mild Active Glutens Abdominal pain Rash Mild Active Medications Eligen B12 1000 mcg oral tablet 1 tab, Oral, Daily, on an empty stomach, 0 Refill(s) Start Date: 12/23/22 Status: Ordered folic acid 1 mg oral tablet 1 mg = 1 tab, Oral, Daily, 0 Refill(s) Start Date: 12/23/22 Status: Ordered HYDROcodone-acetaminophen 5 mg-325 mg oral tablet See Instructions, PRN as needed for pain, 1-2 tabs Oral every 4-6 hr, # 10 tab, 0 Refill(s), Pharmacy: [facility], 145, cm, 12/23/22 11:08:00 EST, Height/Length Dosing, 75, kg, 12/23/22 11:08:00 EST, Weight Dosing Start Date: 08/07/23 Status: Ordered levothyroxine 137 mcg (0.137 mg) oral tablet 137 mcg = 1 tab, Oral, Daily, 0 Refill(s) Start Date: 12/23/22 Status: Ordered Problem List Condition Confirmation Course Effective Dates Status Health St atus Informant Arthritis Confirmed Active Celiac sprue Confirmed Active Difficult intubation 1 Confirmed Active GERD - Gastro-esophageal reflux disease Confirmed Active Hearing loss 2 Confirmed Active Heart murmur Confirmed Active Klippel-Feil syndrome Confirmed Active Neck pain Confirmed Active Neck range of motion 3 Confirmed Active ALLA - Obstructive sleep apnea 4 Confirmed Active Stomach ulcer Confirmed Active Thyroid disease Confirmed Active 1per [facility] record use right nare 2no aids right ear 3limited 4wears cpap at [facility] Procedures Procedure Date Related Diagnosis Body Site Status Carpal Tunnel Release (Right) 1 08/07/23 Completed Open Reduction Internal Fixa tion Wrist (Left) 2 12/24/22 Completed Arthroscopic knee operation Completed CTR - carpal tunnel release Completed EGD - Esophagogastroduodenoscopy Completed Laparoscopic bilateral salpingo-oophorectomy Completed Release of trigger finger Completed Tonsillectomy and adenoidectomy Completed Tympanoplasty 3 Completed 1auto-populated from documented surgical case 2auto-populated from documented surgical case 3many Vital Signs Most recent to oldest [Reference Range]: 1 Peripheral Pulse Rate [60-100 bpm] 70 bp m (08/18/23 11:25 AM) Blood Pressure [90-140/60-90 mmHg] 130/7 0mmHg (08/18/23 11:25 AM) Mean Arterial Pressure, Cuff [65-140 mmH g] 90 mmHg (08/18/23 11:25 AM) Weight 77.11 kg (08/18/23 11:25 AM) Weight Measured (lbs) 169.998 lb (08/18/23 11:25 AM) Height 144.78 cm (08/18/23 11:25 AM) Height/Length Measured (inches) 57 inch (08/18/23 11:25 AM) BSA Measured 1.76 m2 (08/18/23 11:25 AM) Body Mass Index 36.79 kg/m2 (08/18/23 11:25 AM) Social History Social History Type Response [...] Unknown Unknown Unknown Active Unknown Unknown Unknown [id number] Unknown Unknown Unknown Unknown Active Unknown Unknown Unknown m1l4 feb20,2 023 Unknown Unknown Unknown Unknown Active Unknown Physician Outpatient Note * Giovana Weeks, RADIO DIRECTOR: PERFORM Event Display: Office Clinic Note Physician Authored Date: [id number] JENNIFER MCDONOUGH Radha :1950 Age:72 years Sex:Female MRN:[id number] Visit Date:08/18/2023 Primary Care Physician: JANETT RODRÍGUEZ Chief Complaint right ctr History of Present Illness Jennifer is 1.5 weeks s/p right carpal tunnel revision with Dr. Thomas doing quite well. She denies pain. Her pre-operative symptoms have already improved greatly. She denies injury or post op complications. Review of Systems Constitutional:?No??fevers,?No??chills,?No??sweats Respiratory:?No??shortness of breath,?No??cough Cardiovascular:?No??Chest pain,?No??palpitations,?No??syncope Gastrointestinal:?Nonausea,?No??vomiting,?No??diarrhea Freddie/Lymph:?No??bruising tendency,?No??swollen lymph glands Musculoskeletal:??No??back pain,??No??neck pain,??No??joint pain,??No??muscle pain,??No??decreased range of motion Integumentary:?No??rash,?No??pruritus,?No??abrasions Neurologic: Alert & oriented X 4 Physical Exam Vitals & Measurements HR:??70??(Peripheral)?? BP:??130/70?? SpO2:??98%?? HT:??144.78??cm?? WT:??77.11??kg?? BMI:??36.79?? Pain Score:??1?? BSA:??1.76?? The patient is well dressed, well groomed and appearing stated age in NAD. Focused examination of the right hand reveals a small incision to the palm overlying the carpal tunnel that is well approximated without erythema, warmth or drainage. Mild tenderness. Wrist ROM is intact without pain. R handis neurovascularly intact. Assessment/Plan 1.??Carpal tunnel syndrome of right wrist??G56.01 Jennifer is 1.5 weeks s/p right carpal tunnel revision doing exceptionally well. She is quite happy as her symptoms have already dissipated. She denies pain or complaint. Sutures are removed without incident. Jennifer will continue infection prevention for another week or two until skin is fully healed. She will follow up on an as needed basis and is encouraged to contact the office at any time with questions or needs. Problem List/Past Medical History Ongoing Arthritis Celiac sprue Difficult intubation GERD - Gastro-esophageal reflux disease Hearing loss Heart murmur Klippel-Feil syndrome Neck pain Neck range of motion ALLA - Obstructive sleep apnea Stomach ulcer Thyroid disease Historical No qualifying data Procedure/Surgical History ???Carpal Tunnel Release (Right) (08/07/2023)???Open Reduction Internal Fixation Wrist (Left) (12/24/2022)???Arthroscopic knee operation???CTR - carpal tunnel release???EGD - Esophagogastroduodenoscopy???Laparoscopic bilateral salpingo- oophorectomy???Release of trigger finger???Tonsillectomy and beba noidectomy???Tympanoplasty Medications Eligen B12 1000 mcg oral tablet, 1 tab, Oral, Daily folic acid 1 mg oral tablet, 1 mg= 1 tab, Oral, Daily HYDROcodone-acetaminophen 5 mg-325 mg oral tablet, See Instructions, PRN levothyroxine 137 mcg (0.137 mg) oral tablet, 137 mcg= 1 tab, Oral, Daily Allergies Adhesive Bandage??(Rash) Glutens??(Abdominal pain, Rash) amoxicillin??(Diarrhea) ibuprofen??(Abdominal pain) aspirin??(Abdominal pain) Social History Alcohol Current, 1-2 times per year Electronic Cigarette/Vaping Electronic Cigarette Use: Never. Substance Use Never Tobacco Never tobacco user Tobacco Use:. Electronically Signed on 08/18/23 11:44 AM Giovana Weeks APRN Patient Care team information Care Team Personnel Name: JANETT RODRÍGUEZ Position: No Access Member Role: Primary Care Physician Address: Address: [address] [place] [id number]- Care Team Related Persons Name: NICOLE MCDONOUGH Address: [place] [address] [place], [place] [id number] [facility]
--- OUTSIDE RECORDS SUMMARY | 2024-04-26 12:08 | XMS_ITS | Continuity of Care Document ---
Author Name Unknown Organization [facility] Ambulatory Clinics Address [address] [place] [address] Care Team Providers Care Medical Device Sales Representative Name Role Phone JANETT RODRÍGUEZ Primary Care Physician Encounter [facility] NBR [id number] Date(s): 07/28/23 - 07/28/23 [facility] Ambulatory Clinics [address] [place] [address] [place] Discharge Disposition: Home Allergies, Adverse Reactions, Alerts Substance Reaction Severity [...] ulcer Confirmed Active Thyroid disease Confirmed Active 1p [facility] record use right nare 2limited 3wears cpap at [facility] Procedures Procedure Date Related Diagnosis Body Site Status Open Reduction Internal Fixa tion Wrist (Left) 1 12/24/22 Completed Arthroscopic knee operation Completed CTR - carpal tunnel release Completed EGD - Esophagogastroduodenoscopy Completed Laparoscopic bilateral salpingo-oophorectomy Completed Release of trigger finger Completed Tonsillectomy and adenoidectomy Completed Tympanoplasty 2 Completed 1auto-populated from documented surgical case 2many Social History Social History Type Response Tobacco [...] Unknown Unknown Unknown Active Unknown Unknown Unknown [id number] Unknown Unknown Unknown Unknown Active Unknown Unknown Unknown [id number] feb20,2 023 Unknown Unknown Unknown Unknown Active Unknown Patient Care team information Care Team Personnel Name: JANETT RODRÍGUEZ Position: No Access Member Role: Primary Care Physician Address: Address: [address] [place] [id number] [place] [address] Care Team Related Persons Name: NICOLE MCDONOUGH Address: Home [address] [place] [phone] [facility]
--- OUTSIDE RECORDS SUMMARY | 2024-04-26 12:08 | XMS_ITS | Continuity of Care Document ---
Author Name Unknown Organization [facility] Address [address] [place] [address] Care Team Providers Care Health Advocate Name Role Phone JANETT RODRÍGUEZ Primary Care Physician [phone] Encounter [facility] FIN NBR [id number] Date(s): 08/07/23 - 08/07/23 [facility] [address] [place] [address] [place] Discharge Disposition: Home f/u Internal Provider Attending Physician: River Thomas MD Admitting Physician: River Thomas MD Referring Physician: River Thomas MD Allergies, Adverse Reactions, Alerts Substance Reaction [...] hr, # 10 tab, 0 Refill(s), Pharmacy: [facility], 145, cm, 12/23/22 11:08:00 EST, Height/Length [...] Confirmed Active Thyroid disease Confirmed Active 1per [facility] record use right nare 2no aids right ear 3limited 4wears cpap at [facility] Procedures Procedure Date Related Diagnosis Body Site [...] 3 Temperature Temporal Artery [36-38 Deg C] 36.6 Deg C (08/07/23 1:36 PM) 36.7 Deg C (08/07/23 11:51 AM) Temperature Temporal Artery (DegF) [97.3-100 Deg F] 97.88 Deg F (08/07/23 1:36 PM) Peripheral Pulse Rate [60-100 bpm] 76 bpm (08/07/23 1:50 PM) 71 bpm (08/07/23 1:45 PM) 65 bpm (08/07/23 1:40 PM) Heart Rate Monitored [60-100 bpm] 66 bpm (08/07/23 11:51 AM) Respiratory Rate [12-24 br/min] 18 br/min (08/07/23 11:51 AM) Blood Pressure [90-140/60-90 mmHg] 129/76mmHg (08/07/23 1:45 PM) 126/37mmHg (08/07/23 1:40 PM) 139/77mmHg (08/07/23 1:36 PM) Mean Arterial Pressure, Cuff [65-140 mmHg] 94 mmHg (08/07/23 1:45 PM) 67 mmHg (08/07/23 1:40 PM) 98 mmHg (08/07/23 1:36 PM) Mean Arterial Pressure Cuff 93 mmHg (08/07/23 1:45 PM) 60 mmHg (08/07/23 1:40 PM) 93 mmHg (08/07/23 1:36 PM) Social History Social History Type Response Tobacco [...] Unknown Unknown Unknown Active Unknown Unknown Unknown [id number] Unknown Unknown Unknown Unknown Active Unknown Unknown Unknown [id number] feb20,2 023 Unknown Unknown Unknown Unknown Active Unknown Hospital Discharge Instructions Patient Education 08/07/2023 09:23:11 [place] - Dr. Thomas - Post-Operative Instructions Soft Tissue(CUSTOM) Post-Operative Instructions Soft tissue Patient name: Jennifer San Follow up with Giovana Ferrell NP on 08/18/23 at 11:15 am in the [place] office. [facility] Contact Number: [phone] Plan to rest and relax today after your procedure/operation. Even after minor surgery you may feel drowsy or tired for several hours. You may also have a sore throat and muscle aches. DO NOT drink alcohol after anesthesia or while taking pain medications. You should not drive any vehicle or operatemachinery until your doctor says it???s safe. DO NOT make any major decisions, sign contracts, etc.for 24 hours. Activity: ??? Rest today, tomorrow resume your usual activity. ??? Lift no more than 10 pounds until your follow-up appointment. Diet: ??? Advance to previous diet as tolerated. Medications: ??? Continue your regular medications ??? Prescription given to patient: [place] 1-2 tabs every 4-6 hours as needed for pain. Dressing: ??? Keep dressing clean dry and intact. ??? May remove dressing after 48 hours but will need to keep incision site clean. ??? You may shower normally once the dressing is removed. The incision should be cleaned gently with soap and water. A dressing or Band-Aid may be applied over the incision to prevent contamination of the incision. ??? Apply ice pack over dressing site for 20 mins on/20 mins off for the first several days. Special Instructions: ??? You may take a shower after 48 hours. ??? No bathing, soaking or swimming for 2 weeks. ??? You may drive after ALL pain medications are stopped. ??? If you are experiencing discomfort at the operative site you may loosen the Jayson wrap to help alleviate the pain. If this does not help then you will need to contact the office for further instructions. ??? Keep limb elevated on 2???3 pillows so that it is above the level of your heart and make sure to move the fingers of your affected limb several times a day. Other: (Type additional instructions in box below) Patient Identification [address] [id number] *DCIN* DCIN Ortho Post Operative Instructions Soft Tissue Page 1 of 2 YOU SHOULD CALL YOUR DOCTOR AT FOR ANY OF THE FOLLOWING ??? Fever of 101 or higher. ??? Pain that does not lessen with the pain medication prescribed. ??? Cloudy or foul smelling drainage from the incision. ??? Redness, warmth and firmness around the incision. ??? Increased numbness or tingling. ??? Bleeding or continuous oozing that saturates the bandage and does not stop after applying pressure to incision for 20 minutes. ??? Increased swelling of fingers or toes, or severe tightness of bandage not relieved with elevation of limb above the level of your heart. ??? Pale blue or cold fingers/toes or nail beds as compared with the opposite side. IF UNABLE TO REACH YOUR DOCTOR GO TO YOUR NEAREST EMERGENCY ROOM Recommended Treatments for Opioid Induced Constipation Dosage Schedule Drug Brand Names Dose Daily Senna-docusate 8.5-5mg per tablet Senokot 2 tablets by mouth 2 times per day (Hold for loose stool) As Needed Magnesium Hydroxide Milk of Magnesia 30mL by mouth 2 times per day as needed As Needed Polyethylene Glycol Miralax 17 grams dissolved in 8 ounces of water, juice or tea once daily as needed As Needed Bisacodyl Dulcolax 10mg by mouth once a day as needed for constipation As Needed Phosphate enema Fleet enema 120mL rectally once a day as needed for constipation As Needed Magnesium citrate 150 to 300 mL (1.745g/30mL solution) by mouth once a day as needed for constipation Patient/Responsible libertarian signature:? Date/Time: signature: ? Date/Time: [facility] signature: ? Date/Time: Patient Identification [place] [address] [address] Page 2 of 2 Patient Care team information Care Team Personnel Name: JANETT RODRÍGUEZ Position: No Access Member Role: Primary Care Physician Address: Address: [address] [place] [address] Care Team Related Persons Name: NICOLE SAN Address: Home [address] [place], [place] [id number] [facility]
--- OUTSIDE RECORDS SUMMARY | 2024-04-26 12:08 | XMS_ITS | Continuity of Care Document ---
Author Name Unknown Organization [facility] Ambulatory Clinics Address [address] [place] [address] Care Team Providers Care Taxi Cab Driver Name Role Phone JANETT RODRÍGUEZ Primary Care Physician Encounter [facility] NBR [id number] Date(s): 08/21/23 - 08/21/23 [facility] Ambulatory Clinics [address] [place], [place] [address] Encounter Diagnosis Carpal tunnel syndrome, right(Discharge Diagnosis) - 08/21/23 Discharge Disposition: Home or Self Care Attending Physician: Gianna Nunez BAKERY TECHNICIAN, Allergies, Adverse Reactions, Alerts Substance Reaction Severity Status ibuprofen Abdominal pain Mild Active amoxicillin Diarrhea Mild Active aspirin Abdominal pain Unknown Active Adhesive Bandage Rash Mild Active Glutens Abdominal pain Rash Mild Active Medications Bactrim DS 800 mg-160 mg oral tablet 1 tab, Oral, BID, # 10 tab, 0 Refill(s), Pharmacy: [id number], 145, cm, 12/23/22 11:08:00 EST, Height/Length Dosing, 75, kg, 12/23/22 11:08:00 EST, Weight Dosing Start Date: 08/21/23 Stop Date: 08/26/23 Status: Ordered Eligen B12 1000 mcg oral tablet 1 [...] hr, # 10 tab, 0 Refill(s), Pharmacy: [facility], 145, cm, 12/23/22 11:08:00 EST, [...] Thyroid disease Confirmed Active 1per [facility] record use right nare 2no aids right ear 3limited 4wears cpap at [facility] Procedures Procedure Date Related Diagnosis Body [...] Range]: 1 Peripheral Pulse Rate [60-100 bpm] 69 bp m (08/21/23 11:29 AM) Blood Pressure [90-140/60-90 mmHg] 146/7 1mmHg *HI* (08/21/23 11:29 AM) Mean Arterial Pressure, Cuff [65-140 mmH g] 96 mmHg (08/21/23 11:29 AM) Social History Social History Type Response [...] Unknown Unknown Unknown Active Unknown Unknown Unknown [id number] Unknown Unknown Unknown Unknown Active Unknown Unknown Unknown m1l4 feb20,2 023 Unknown Unknown Unknown Unknown Active Unknown Hospital Discharge Instructions Follow Up Care 08/20/2023 09:52:05 With:Return to this practice Address: When: only if needed Physician Outpatient Note * Gianna Mayra BAKERY TECHNICIAN,: PERFORM Event Display: Office Clinic Note Physician Authored Date: [id number] JENNIFER MCDONOUGH :1950 Age:72 years Sex:Female [id number] Visit Date:08/21/2023 Primary Care Physician: JANETT RODRÍGUEZ Chief Complaint PO Wound concern Right carpal tunnel release History of Present Illness Jennifer is a pleasant 72-year-old woman??who is??2 weeks status post revision??right carpal tunnel release. ??Overall she is doing well.?? She has noticed modest improvement in her carpal tunnel symptoms. ??However she was a bit concerned as she has had some pain, swelling and redness surrounding the incision.?? No open areas or drainage.?? She wanted evaluation prior to the weekend. Review of Systems Constitutional:?No??fevers,?No??chills,?No??sweats Respiratory:?No??shortness of breath,?No??cough Cardiovascular:?No??Chest pain,?No??palpitations,?No??syncope Gastrointestinal:?Nonausea,?No??vomiting,?No??diarrhea Musculoskeletal:??No??back pain,??No??neck pain,??Positive for??right hand pain,??No??muscle pain,??Positive for??decreased range of motion right hand Integumentary:?No??rash,?No??pruritus,?No??abrasions Neurologic: Alert & oriented X 4 Psychiatric:?No??anxiety,?No??depression Physical Exam Vitals & Measurements HR:??69??(Peripheral)?? BP:??146/71?? SpO2:??97%?? Pain Score:??2?? The patient is alert and oriented x3. ??Pleasant and cooperative. ??Well-dressed and well-groomed.?? Appears stated age and is well-nourished and well- developed.?? Examination of the right wrist and hand reveals a nicely healing carpal tunnel incision.?? There is mild erythema noted at the proximal incision.?? No fluctuance. ??There is mild point tenderness surrounding the incision.?? Patient is able to make a composite fist with ease and extend all fingers without difficulty.?? Radial pulse is2+. ??Skin is warm and pink with brisk capillary refill. Assessment/Plan 1.??Carpal tunnel syndrome, right??G56.01 Jennifer is a pleasant 72-year-old woman who is 2 weeks status post revision right carpal tunnel release.?? She has had??some pain, swelling and erythema surrounding the incision for a few days.?? Although it does not look awful, I think it would be prudent to start her on some antibiotics. ??She is in agreement with that.?? She is also going to do warm compresses.?? She will keep the area clean and dry.?? Hopefully this will resolve without any further issue. ??However she understands to contactthe office immediately??should any of her symptoms worsen??or persist. ??I will see her back on an as-needed basis. ??She is in agreement with that plan and is encouraged to contact me with questionsor concerns anytime. Ordered: Bactrim DS 800 mg-160 mg oral tablet, 1 tab, Oral, BID, # 10 tab, 0 Refill(s), Pharmacy: [facility], 145, cm, 12/23/22 11:08:00 EST, Height/Length Dosing, 75, kg, 12/23/22 11:08:00 EST, Weight Dosing ?? Follow Up Instructions With When Contact Information [...] of trigger finger???Tonsillectomy and beba noidectomy???Tympanoplasty Medications Bactrim DS 800 mg-160 mg oral tablet, 1 tab, Oral, BID Eligen B12 1000 mcg oral tablet, 1 [...] tobacco user Tobacco Use:. Electronically Signed on 08/21/23 01:30 PM Gianna Nunez APRN, Patient Care team information Care Team Personnel Name: JANETT RODRÍGUEZ Position: No Access Member Role: Primary Care Physician Address: Address: [address] [place] [id number] Care Team Related Persons Name: NICOLE MCDONOUGH Address: Home [address] [place], [place] [id number] [facility]
--- OUTSIDE RECORDS SUMMARY | 2024-04-26 12:08 | XMS_ITS | Continuity of Care Document ---
Author Name Unknown Organization [facility] Ambulatory Clinics Address [address] [place] [address] Care Team Providers Care Shrimp Peeling Machine Operator Name Role Phone Tanmay Long Primary Care Physician [phone] Encounter [facility] NBR [id number] Date(s): 06/25/23 - 06/25/23 [facility] Ambulatory Clinics [address] [place] [address] [place] Discharge Disposition: Home Allergies, [...] Confirmed Active Thyroid disease Confirmed Active 1per [facility] record use right nare 2limited 3wears cpap at [facility] Procedures Procedure Date Related Diagnosis [...] Unknown Unknown Unknown Active Unknown Unknown Unknown [id number] Unknown Unknown Unknown Unknown Active Unknown Unknown Unknown m1l4 feb20,2 023 Unknown Unknown Unknown Unknown Active Unknown Patient Care team information Care Team Personnel Name: Tanmay Long Position: No Access Member Role: Primary Care Physician Address: Address: [address] [place] [id number] [place] [address] Care Team Related Persons Name: NICOLE MCDONOUGH Address: Home [address] [place] [phone] [facility]
--- OUTSIDE RECORDS SUMMARY | 2024-04-26 12:08 | XMS_ITS | Continuity of Care Document ---
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 record use right nare 2limited 3w[facility] Procedures Procedure Date Related Diagnosis Body Site [...] Pulse Rate [60-100 bpm] 70 bp m (07/10/23 10:27 AM) Blood Pressure [90-140/60-90 mmHg] 132/7 5mmHg (07/10/23 10:27 AM) Weight 77.11 kg (07/10/23 10:27 AM) Weight Measured (lbs) 169.998 lb (07/10/23 10:27 AM) Height 144.78 cm (07/10/23 10:27 AM) Height/Length Measured (inches) 57 inch (07/10/23 10:27 AM) BSA Measured 1.76 m2 (07/10/23 10:27 AM) Body Mass Index 36.79 kg/m2 (07/10/23 10:27 AM) Social History Social History Type Response [...] Unknown Unknown Unknown Active Unknown Unknown Unknown [id number] Unknown Unknown Unknown Unknown Active Unknown Unknown Unknown m1l4 feb20,2 023 Unknown Unknown Unknown Unknown Active Unknown Hospital Discharge Instructions Follow Up Care 06/26/2023 09:17:53 With:River Thomas MD Address: [address] [place] [id number] When: Unknown Comments:SX CONSULT REVISION CARPAL TUNNEL RELEASE Physician Outpatient Note * Gianna Mayra ELECTRICAL ASSEMBLY TECHNICIAN,: PERFORM Event Display: Office Clinic Note Physician Authored Date: [id number] JENNIFER MCDONOUGH :1950 Age:72 years Sex:Female [id number] Visit Date:07/10/2023 Primary Care Physician: JANETT RODRÍGUEZ Chief Complaint LEFT HAND CSI\ RIGHT HAND PAIN History of Present Illness Jennifer is a [...] painful.?? She is never??tried a brace??or cortisoneinjections.?? Recent EMG studies showed evidence of carpal tunnel syndrome.?? When I last saw her we discussed treatment with bracing, therapy, injection, revision surgery.?? She is here today to discuss injection versus surgery. ?? She has also had pain, stiffness and swelling in the left hand.?? Symptoms are most pronounced at the index and long fingers. ??The long finger triggers and gets stuck.?? The palm of the hand overlying the A1 juju is quite tender.?? The symptoms make it hard for her to make a complete fist.?? No numbness or tingling.?? She has also had persistent ulnar-sided wrist pain since ORIF with Dr. Siegel 7 months ago. ??She denies clicking, popping or crepitus at the wrist. ??She has done some research, wonders about TFCC injury. ??Has used a splint at night with some relief. ??She wonders about other treatment options. ??She has been through trigger thumb release on the left as well as carpal tunnel release on the left.?? Review of Systems Constitutional:?No??fevers,?No??chills,?No??sweats Respiratory:?No??shortness of breath,?No??cough Cardiovascular:?No??Chest pain,?No??palpitations,?No??syncope Gastrointestinal:?Nonausea,?No??vomiting,?No??diarrhea Musculoskeletal:??No??back pain,??No??neck pain,??No??joint pain,??Positive for??numbness/tingling right hand,??Positive for??decreased range of motion left hand Integumentary:?No??rash,?No??pruritus,?No??abrasions Neurologic: Alert & oriented X 4 Psychiatric:?No??anxiety,?No??depression Physical Exam Vitals & Measurements HR:??70??(Peripheral)?? BP:??132/75?? SpO2:??98%?? HT:??144.78??cm?? WT:??77.11??kg?? BMI:??36.79?? Pain Score:??3?? BSA:??1.76?? The patient is alert and oriented x3. ??Pleasant and cooperative. ??Well-dressed and well-groomed.?? Appears stated age and is well-nourished and well-developed. ?? Examination of the right wrist and hand [...] warm and pink with brisk capillary refill. ?? Examination of the left wrist and hand??is without deformity.?? Skin is intact. ??There is no erythema or warmth. ??No signs or symptoms of infection.?? No point tenderness at the distal radius orulna. ??There is point tenderness overlying the ulnar fovea. ??No point tenderness overlying the scaphoid. ??Gentle passive range of motion is intact at the wrist. ??Radial pulses 2+.?? Patient has difficulty making a full fist due to finger stiffness, particularly the index and long fingers.?? There is point tenderness overlying the A1 pulleys of the??index and long fingers.?? Finger extension is full. ??No triggering noted. ??Skin is warm and pink with brisk capillary refill and sensation is i ntact distally. Procedure Risks, benefits and alternatives to these injections are discussed with the patient, verbal consentis obtained.?? Under standard, sterile technique, the palm of the left??hand??overlying the A1 pulleys of the??index and long fingers??is meticulously prepped with alcohol x3. ??Then 40 mg of Kenalog combined with 1% lidocaine plain is injected without difficulty. ??The patient tolerated the injection very well??and a dry, sterile bandage is applied. ??Postinjection instructions are provided. Assessment/Plan 1.??Carpal tunnel syndrome of right wrist??G56.01 Jennifer is a very pleasant 72-year-old woman??who went through right carpal tunnel release with Dr. Thomas over a year ago. ??She initially did well,??symptoms resolved.?? Unfortunately her symptoms have returned over the past few months.?? She complains of numbness, tingling and clumsiness in the m edian distribution. ??She had EMG studies which showed evidence of carpal tunnel syndrome.?? She isbecoming very frustrated with the persistent symptoms. ??We discussed treatment once again including bracing, injections, therapy,??revision surgery. ??At this point she would like to move forward with revision surgery.?? We discussed risks, benefits and alternatives to surgery. ??She is very familiar with perioperative course, recovery, restrictions.?? I will ask Dr. Thomas'??clinic scheduler to get in touch with her to discuss specifics, available dates.?? In the meantime she may continue with supportive care. ?? 2.??Trigger finger of left hand??M65.30 She has also been struggling with pain and stiffness at the left hand.?? This is primarily involving the index and long fingers.?? She has triggering at the long finger.?? They feel she has trigger fingers of both the index and long fingers. ??She has not responded to conservative treatment. ??She has been through surgery for trigger finger in the past, but really??is not interested in??surgery at this point in time.?? Therefore she is opted to try a cortisone injection for both fingers. ??I amhappy to do this for her today. Ordered: Kenalog-40, 40 mg, Intra-articular, Once, First Dose: 07/10/23 12:02:00 EDT, Stop Date: 07/10/23 12:02:00 EDT, Physician Stop, Routine Kenalog-40, 40 mg, Intra-articular, Once, First Dose: 07/10/23 12:02:00 EDT, Stop Date: 07/10/23 12:02:00 EDT, Physician Stop, Routine ?? 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 Murdock. ??She is recovered well from this, but since that time has had ulnar- sided wrist pain.?? I would agree with her that she could have??TFCC pathology,??there is also mild irregularity at the ulnar styloid which could be contributing. ??We discussed treatment with??bracing, anti-inflammatories, injections, therapy.?? At this point she is opting??to??continue with watchful waiting and supportive care. ?? Jennifer is in agreement with the above plan.?? I spent 20 minutes in reviewing the record, seeing the patient and documenting in the medical record.?? She is encouraged to contact me with questions orconcerns at any time. Follow Up Instructions With When Contact Information William [address], [place] [address] Additional Instructions: SX CONSULT REVISION CARPAL TUNNEL RELEASE Problem List/Past Medical History Ongoing Arthritis Celiac [...] tablet, 1 mg= 1 tab, Oral, Daily Kenalog-40, 40 mg, Intra-articular, Once Kenalog-40, 40 mg, Intra-articular, Once levothyroxine 137 mcg (0.137 mg) oral tablet mupirocin 2% topical ointment Allergies Adhesive Bandage??(Rash) Glutens??(Abdominal pain, Rash) amoxicillin??(Diarrhea) ibuprofen??(Abdominal pain) aspirin??(Abdominal pain) Social History Alcohol Current, 1-2 times per year Electronic Cigarette/Vaping Electronic Cigarette Use: Never. Substance Use Never Tobacco Never tobacco user Tobacco Use:. Diagnostic Results Diagnostic Study Interpretation: X-rays of the left hand obtained today are personally reviewed on the [facility] system.?? No acute findings.?? Very early degenerative changes are seen at the IP joints as evidenced by joint space narrowing.?? MCP joints are well- preserved.?? Plate and screw fixation is noted at the distal radius.?? Electronically Signed on 07/10/23 12:03 PM Gianna Nunez APRN, Patient Care team information Care Team Personnel Name: JANETT RODRÍGUEZ Position: No Access Member Role: Primary Care Physician Address: Address: [address] [place] [id number] Care Team Related Persons Name: NICOLE MCDONOUGH Address: Home [address] [place], [place] [id number] [facility]
--- OUTSIDE RECORDS SUMMARY | 2024-04-26 12:08 | XMS_ITS | Continuity of Care Document ---
Author Name Unknown Organization [facility] Address [address] [place] [address] Care Team Providers Care Sewer Inspector Name Role Phone JANETT RODRÍGUEZ Primary Care Physician Encounter [facility] FIN NBR [id number] Date(s): 07/10/23 - 07/10/[address] [address] [place] Discharge Disposition: Home or Self Care Attending Physician: Gianna Nunez APRN, Admitting Physician: Gianna Nunez APRN, Referring Physician: Gianna Nunez APRN, Allergies, Adverse Reactions, [...] Confirmed Active Thyroid disease Confirmed Active 1per [facility] record use right nare 2limited 3wears cpap at [facility] Procedures Procedure Date Related Diagnosis [...] Exam Date Time Procedure Performing Provider Status 07/10/23 10:19 AM XR Hand Complete 3+ Views Left Keith Kelley; Raymond (Verified) Notes: (XR Hand Complete 3+ Views Left) Reason For Exam: left hand pain XR Hand Complete 3+ Views Left EXAM DESCRIPTION: XR Hand Complete 3+ Views Left 07/10/2023 INDICATION: LEFT HAND PAIN COMPARISON: Left wrist examination from 01/26/2023 IMPRESSION: No acute fracture or dislocation No significant arthritic changes. MCP and IP joint spaces are well maintained. No focal lytic or sclerotic Status post ORIF of the distal radius with plate fixation apparatus. Mild irregularity of the ulnar styloid which may reflect sequela of old injury. No regional radiopaque soft tissue foreign body. JOB #: [id number] Final Signed by: River Boateng MD Signed (Electronic Signature): 07/10/2023 10:27 am Social History Social History Type Response [...] Unknown Unknown Unknown Active Unknown Unknown Unknown [id number] Unknown Unknown Unknown Unknown Active Unknown Unknown Unknown m1l4 feb20,2 023 Unknown Unknown Unknown Unknown Active Unknown Patient Care team information Care Team Personnel Name: JANETT RODRÍGUEZ Position: No Access Member Role: Primary Care Physician Address: Address: [address] [place] [address] Care Team Related Persons Name: NICOLE MCDONOUGH Address: Home [address] [place] [phone] [facility]
--- OUTSIDE RECORDS SUMMARY | 2024-04-26 12:08 | XMS_ITS | Continuity of Care Document ---
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, Allergies, Adverse Reactions, Alerts Substance Reaction Severity Status ibuprofen Abdominal pain Mild Active amoxicillin Diarrhea Mild Active aspirin Abdominal pain Unknown Active Adhesive Bandage Rash Mild Active Glutens Abdominal pain Rash Mild Active Assessment and Plan Future Appointments Medications Bactrim DS 800 mg-160 mg oral tablet 1 tab, Oral, BID, # 10 tab, 0 Refill(s), Pharmacy: [id number], 145, cm, 12/23/22 11:08:00 EST, Height/Length Dosing, 75, kg, 12/23/22 11:08:00 EST, Weight Dosing Start Date: 08/21/23 Stop Date: 08/26/23 Status: Ordered cephalexin 500 mg oral capsule 500 mg = 1 cap, Oral, QID, # 20 cap, 0 Refill(s), Pharmacy: [id number], 149.86, cm, 09/04/23 10:13:00 EDT, Height, 77.11, kg, 09/04/23 10:16:00 EDT, Weight Dosing Start Date: 09/04/23 Stop Date: 09/09/23 Status: Ordered Eligen B12 1000 mcg oral [...] Active Thyroid disease Confirmed Active 1per [facility] record use right nare 2no aids right ear 3limited 4wears cpap at [facility] Procedures Procedure Date Related Diagnosis [...] Pulse Rate [60-100 bpm] 68 bp m (09/04/23 10:13 AM) Blood Pressure [90-140/60-90 mmHg] 122/7 2mmHg (09/04/23 10:13 AM) Mean Arterial Pressure, Cuff [65-140 mmH g] 89 mmHg (09/04/23 10:13 AM) Weight 77.11 kg (09/04/23 10:13 AM) Weight Measured (lbs) 169.998 lb (09/04/23 10:13 AM) Weight Dosing 77.110 kg (09/04/23 10:13 AM) Height 149.86 cm (09/04/23 10:13 AM) Height/Length Measured (inches) 59 inch (09/04/23 10:13 AM) BSA Measured 1.79 m2 (09/04/23 10:13 AM) Body Mass Index 34.34 kg/m2 (09/04/23 10:13 AM) Social History Social History Type Response [...] Unknown Unknown Unknown Active Unknown Unknown Unknown [id number] Unknown Unknown Unknown Unknown Active Unknown Unknown Unknown [id number] feb20,2 023 Unknown Unknown Unknown Unknown Active Unknown Hospital Discharge Instructions Follow Up Care 09/04/2023 08:46:17 With:Gianna Nunez APRN, Address: [address] [place], [place] [id number]- When:Within 1 Week(s) Physician Outpatient Note * Gianna Nunez APRN,: PERFORM Event Display: Office Clinic Note Physician Authored Date: [id number] JENNIFER MCDONOUGH :1950 Age:72 years Sex:Female [id number] Visit Date:09/04/2023 Primary Care Physician: JANETT RODRÍGUEZ Chief Complaint RIGHT HAND POSS INFECTION History of Present Illness Jennifer is a very pleasant 72-year-old woman who??about a month status post??revision carpal tunnel release on the right.?? I saw her few weeks after surgery??as she had developed??pain, swelling and redness surrounding the??proximal incision. ??She was started on antibiotics and I advised warm compresses.?? She has completed the antibiotics, she is continuing with the warm compresses.?? However she called??several days ago concerned that she still had??an area of swelling at the proximal incision.?? She states??it fluctuates,??comes to ahead and then will improve. ??She has been unable to??exp ress any drainage.?? She is concerned there could be a piece of retained suture.?? She is otherwisefeeling well, she has had no fever or chills.?? She tells me her carpal tunnel symptoms are improving,??they are more intermittent in nature. Review of Systems Constitutional:?No??fevers,?No??chills,?No??sweats Respiratory:?No??shortness of breath,?No??cough Cardiovascular:?No??Chest pain,?No??palpitations,?No??syncope Gastrointestinal:?Nonausea,?No??vomiting,?No??diarrhea Musculoskeletal:??No??back pain,??No??neck pain,??No??joint pain,??No??muscle pain,??No??decreased range of motion Integumentary:?No??rash,?No??pruritus,?No??abrasions Neurologic: Alert & oriented X 4 Psychiatric:?No??anxiety,?No??depression Physical Exam Vitals & Measurements HR:??68??(Peripheral)?? BP:??122/72?? SpO2:??96%?? HT:??149.86??cm?? WT:??77.11??kg?? BMI:??34.34?? Pain Score:??2?? BSA:??1.79?? The patient is alert and oriented x3. ??Pleasant and cooperative. ??Well-dressed and well-groomed.?? Appears stated age and is well-nourished and well- developed.?? Examination of the right wrist reveals a healed carpal tunnel incision. ??At the proximal incision there is a small, erythematous??area consistent??with abscess. ??No open areas or drainage.?? No surrounding fluctuance.?? Range of motion at the wrist is intact. ??Patient is able to make a composite fist with ease and extend all fingers without difficulty, there is no pain with active or passive range of motion of the digits. ??No erythematous streaking. Procedure Risks, benefits and alternatives right wrist abscess??incision and drainage are discussed with the patient, verbal consent is obtained.?? Under standard, sterile technique, the??affected area is meticulously prepped with ChloraPrep.?? Then a 0.5??cc of 1% lidocaine plain??is injected subcutaneously.?? The area is reprepped with ChloraPrep x3 and a??11 blade is used to make a very small??opening at the abscess.?? I was able to express??some blood, but there is no purulence. ??No evidence of retained suture.?? The site was cleansed??with alcohol??and was dressed with??bacitracin and sterile gauze followed by an Jayson wrap.?? She tolerated the procedure very well??and post procedure instructions are provided. Assessment/Plan 1.??Postoperative stitch abscess??T81.41XA Jennifer is a pleasant??72-year-old woman who is now??one month status post revision carpal tunnel release on the right.?? Unfortunately she has developed a small??stitch abscess at the proximal incision that has been recalcitrant to??conservative treatment.?? An office I&D was attempted today,??fortunately there is no purulent drainage, I was unable to visualize retained??stitch. ??See procedure note below.?? Therefore she is going to continue with supportive care.?? She will keep today's dressing in place for 48 hours.?? I am going to??keep her on antibiotics for the next few days.?? I??still suspect that there is likely a piece of retained suture, but I am hopeful over time this will work its way out.?? If it continues to be a problem she may need??I&D??in the operating room.?? Henry going to see her back??in a week or so for another wound check and follow-up.?? However she understands to contact me in the interim should she??have any questions or concerns. ??She is in agreement with the above plan. Ordered: cephalexin 500 mg oral capsule, 500 mg = 1 cap, Oral, QID, # 20 cap, 0 Refill(s), Pharmacy: [facility], 149.86, cm, 09/04/23 10:13:00 EDT, Height, 77.11, kg, 09/04/23 10:16:00 EDT, Weight Dosing ?? Follow Up Instructions With When Contact Information Gianna Nunez APRN, In 1 week [address] [place] [address]- Additional Instructions: Problem List/Past Medical History Ongoing [...] mg oral tablet, 1 tab, Oral, BID cephalexin 500 mg oral capsule, 500 mg= 1 cap, Oral, QID Eligen B12 1000 mcg oral tablet, 1 [...] tobacco user Tobacco Use:. Electronically Signed on 09/04/23 11:14 AM Gianna Nunez APRN, Patient Care team information Care Team Personnel Name: JANETT RODRÍGUEZ Position: No Access Member Role: Primary Care Physician Address: Address: [address] [place] [id number]- Care Team Related Persons Name: NICOLE MCDONOUGH Address: Home [address] [place], [place] [id number] [facility]
--- OUTSIDE RECORDS SUMMARY | 2024-04-26 12:08 | XMS_ITS | Continuity of Care Document ---
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, Allergies, Adverse Reactions, Alerts Substance Reaction Severity [...] Confirmed Active Thyroid disease Confirmed Active 1per [facility] record use right nare 2no aids right ear 3limited 4wears cpap at [facility] Procedures Procedure Date Related Diagnosis Body Site [...] Pulse Rate [60-100 bpm] 72 bp m (09/15/23 10:20 AM) Blood Pressure [90-140/60-90 mmHg] 128/7 6mmHg (09/15/23 10:20 AM) Mean Arterial Pressure, Cuff [70-110 mmH g] 93 mmHg (09/15/23 10:20 AM) Social History Social History Type Response [...] Unknown Unknown Unknown Active Unknown Unknown Unknown [id number] Unknown Unknown Unknown Unknown Active Unknown Unknown Unknown m1l4 feb20,2 023 Unknown Unknown Unknown Unknown Active Unknown Hospital Discharge Instructions Follow Up Care 09/04/2023 11:03:57 With:Return to this practice Address: When: only if needed Physician Outpatient Note * Gianna Nunez APRN,: PERFORM Event Display: Office Clinic Note Physician Authored Date: [id number] JENNIFER MCDONOUGH :1950 Age:72 years Sex:Female [id number] Visit Date:09/15/2023 Primary Care Physician: JANETT RODRÍGUEZ Chief Complaint PO Wound check Right wrist History of Present Illness Jennifer is a very pleasant 72-year-old woman who??about six weeks status post??revision carpal tunnel release on the right.?? I saw her a few weeks after surgery??as she had developed??pain, swelling and redness surrounding the??proximal incision. ??She was started on antibiotics and I advised warm c ompresses which was somewhat helpful.?? However there was still a small area of swelling that wouldcome to ahead. ??Despite her best efforts she was unable to express any drainage. ??There was concern for retained suture,??she was seen about 10 days ago and I attempted minor I&D??to see if I could??drain any fluid or identify??retained stitch. ??There was no purulence, I was unable to identify retained suture. ??She is here today for follow-up and wound check. ??The area has fully healed. ??She reports overall it is better, but she still feels there might be a small piece of suture remaining. ??However she is not interested in any further procedures.? Review of Systems Constitutional:?No??fevers,?No??chills,?No??sweats Respiratory:?No??shortness of breath,?No??cough Cardiovascular:?No??Chest pain,?No??palpitations,?No??syncope Gastrointestinal:?Nonausea,?No??vomiting,?No??diarrhea Musculoskeletal:??No??back pain,??No??neck pain,??No??joint pain,??No??muscle pain,??No??decreased range of motion Integumentary:?No??rash,?No??pruritus,?No??abrasions Neurologic: Alert & oriented X 4 Psychiatric:?No??anxiety,?No??depression Physical Exam Vitals & Measurements HR:??72??(Peripheral)?? BP:??128/76?? SpO2:??99%?? Pain Score:??0?? The patient is alert and oriented x3. ??Pleasant and cooperative. ??Well-dressed and well-groomed.?? Appears stated age and is well-nourished and well- developed.?? Examination of the??right wrist reveals a fully healed carpal tunnel incision.?? Proximally there is a very small area of swelling??andit does appear that there could be??a??piece of blue suture subcutaneously.?? However the area is soft, only mildly tender.?? No fluctuance.?? Patient is able to make a composite fist with ease and extend all fingers without difficulty. Assessment/Plan 1.??Status post carpal tunnel release??Z98.890 Jennifer is a pleasant 72-year-old woman who is about 6 weeks status post revision right carpal tunnel release.?? She has struggled with a small area of swelling and tenderness at the proximal incision.?? At this point it is improving.?? I would agree with her that there is likely a small piece??of retained suture, but neither she nor I??want to attempt any more I&D procedures.?? I have encouraged her to continue with warm compresses and scar massage. ??I am hopeful??with time??that this??suture will reveal itself.?? Should that occur and she needs assistance with removal, she will let me know.?? She will also let me know if she notices any signs or symptoms of infection.?? I will see dasia on an as- needed basis. ??She is in agreement with the above plan and is encouraged to contact the office at anytime with questions or concerns. Follow Up Instructions With When Contact Information [...] Daily levothyroxine 137 mcg (0.137 mg) oral tablet, 137 mcg= 1 tab, Oral, Daily Allergies Adhesive Bandage??(Rash) Glutens??(Abdominal pain, Rash) amoxicillin??(Diarrhea) ibuprofen??(Abdominal pain) aspirin??(Abdominal pain) Social History Alcohol Current, 1-2 times per year Electronic Cigarette/Vaping Electronic Cigarette Use: Never. Substance Use Never Tobacco Never tobacco user Tobacco Use:. Electronically Signed on 09/15/23 12:56 PM Gianna Nunez APRN, Patient Care team information Care Team Personnel Name: JANETT RODRÍGUEZ Position: No Access Member Role: Primary Care Physician Address: Address: [address] [place] [address]- Care Team Related Persons Name: NICOLE MCDONOUGH Address: Home [address] [place], [place] [id number] [facility]
[2024-04-26 20:43] LABS: HCT 41.3 % (36.0-46.0); HGB 14.1 g/dL (11.2-15.7); MCH 31.9 pg (27.0-33.0); MCHC 34.1 % (32.0-36.0); MCV 93 fL (80-95); MPV 10.5 fL (8.0-11.0); Platelet Count 210 10^3/uL (130-400); RBC 4.42 10^6/uL (3.93-5.22); RDW 12.1 % (11.7-14.6); RDW-SD 41.6 fL; WBC 5.48 10^3/uL (4.4-10.8)
[2024-04-26 21:22] LABS: TSH (W/Ref FT4) 0.84 uIU/mL (0.36-3.74); Vitamin B12 441 pg/mL (193-986)
== END 2024-04-26 12:07 | disposition home or self-care (01) ==
LOC: LBN 12:06
PROVIDERS: PCP Nurse Practitioner Family; Visit Provider Nurse Practitioner Family
DX: E03.9 Hypothyroidism, unspecified (principal); E53.8 Deficiency of other specified B group vitamins; Z11.51 Encounter for screening for human papillomavirus (HPV); Z01.419 Encounter for gynecological examination (general) (routine) without abnormal findings
CPT/HCPCS: 85027; 88142; 82607; 84443; 87624

== ENCOUNTER → 2024-05-09 02:23 | Outpatient (CLI) | payer MEDICARE, BC, SELFPAY ==
--- NOTE | 2024-05-09 06:15 | DI.MAMMO_ITS ---
Exam(s) MAMMO SCREENING EXAM: MAMMO SCREENING CLINICAL HISTORY: screening,Z12.39 TECHNIQUE: Mammograms were interpreted according to the usual protocol including computer analysis w [employer] CAD system, tomosynthesis and C-view imaging. COMPARISON: 2014 through 2021 FINDINGS: The breasts are composed of mainly fatty density , Breast Density category A. No suspicious masses or suspicious microcalcifications are seen. No skin thickening or abnormal axillary lymph nodes are seen. There has been no significant change from prior exams. IMPRESSION: BI-RADS Category 1, Negative mammogram Yearly screening mammography is recommended. Breast Density - Category A, fatty density. A negative radiographic report should not delay biopsy if a dominant or clinically suspicious mass is present. Up to ten percent of cancers are not identified on mammography. A negative report may reinforce clinical impression. Adenosis and dense breasts may obscure an underlying neoplasm. False positive reports average 6 to 10%. Patient will receive a letter notifying them of these results.
== END ==
PROVIDERS: PCP Nurse Practitioner Family; Visit Provider Nurse Practitioner Family
DX: Z12.31 Encounter for screening mammogram for malignant neoplasm of breast (principal)
CPT/HCPCS: 77063; 77067

== ENCOUNTER 2025-06-01 13:48 | Outpatient (REF) | payer MEDICARE, BC, SELFPAY ==
--- NOTE | 2025-06-01 11:45 | PAPFT_PTH ---
PATIENT: Sandrita San LOC: [facility] U#:[id number] AGE/SX: 74/F ROOM: RE06/01/[address]: Tanmay Breen DNP : 1950 BED: DIS: 06/01/2025 SPEC #: [id number] RECD: 06/02/25 11:54 STATUS: WILLIE REJosé Miguel #: [id number] VERÓNICA: 06/01/25 11:[address]: Tanmay Helm DEPT: [facility] Cytology RECD BY: Micheline Vuong Tissues: 1 - CX/ENDOCX FOR PAP SMEARS Procedures: PAP THIN PREP/UVM Screening HPV DNA PROBE Comments: [id number] (HPV 16 & 18/45)
[2025-06-01 20:41] LABS: HCT 39.8 % (36.0-46.0); HGB 13.6 g/dL (11.2-15.7); MCH 32.2 pg (27.0-33.0); MCHC 34.2 % (32.0-36.0); MCV 94 fL (80-95); MPV 10.1 fL (8.0-11.0); Platelet Count 209 10^3/uL (130-400); RBC 4.23 10^6/uL (3.93-5.22); RDW 11.9 % (11.7-14.6); RDW-SD 40.9 fL; WBC 5.75 10^3/uL (4.4-10.8)
[2025-06-01 21:02] LABS: TSH 1.08 uIU/mL (0.36-3.74)
[2025-06-01 21:56] LABS: Vitamin B12 405 pg/mL (193-986)
== END 2025-06-01 13:49 | disposition home or self-care (01) ==
LOC: LBN 13:48
PROVIDERS: PCP Nurse Practitioner Family; Visit Provider Nurse Practitioner Family
DX: E03.9 Hypothyroidism, unspecified (principal); Z12.4 Encounter for screening for malignant neoplasm of cervix
CPT/HCPCS: 85027; 88142; 82607; 84439; 84443; 87624

== ENCOUNTER 2025-06-06 01:34 | Outpatient (CLI) | payer MEDICARE, BC, SELFPAY ==
--- NOTE | 2025-06-06 06:30 | DI.MAMMO_ITS ---
Exam(s) MAMMO SCREENING EXAM: MAMMO SCREENING CLINICAL HISTORY: screening,z12.39 TECHNIQUE: Bilateral full field digital CC and MLO mammographic images were obtained with 3D tomosynthesis and utilizing computer aided detection (CAD). COMPARISON: Comparison is made with prior examinations. FINDINGS: Masses/Architectural Distortion: No suspicious masses or areas of architectural distortion are present. Microcalcifications: No suspicious pleomorphic-type are seen. Skin Thickening/Nipple Retraction: None. IMPRESSION: 1. No significant interval change with no specific features of malignancy noted. 2. Unless there is more urgent need, screening mammography is recommended, as per [place] [employer] guidelines. BI-RADS Category 1 - Negative Breast Density - Category A - The breast are almost entirely fatty. Breast density Category C or D implies that the patient has dense breast tissue. Dense breast tissue can make it harder to find cancer on a mammogram. Dense breast tissue is also associated with an increased risk of breast cancer. This information about the result of the mammogram report was provided to the patient to raise their awareness. Use this report when you speak with the patient about their risks for breast cancer, which includes their family history. At that time, you may recommend additional screening tests (Ultrasound or MRI) as these tests may add significant information. A negative radiographic report should not delay biopsy if a dominant or clinically suspicious mass is present. Up to ten percent of cancers are not identified on mammography. A negative report may reinforce clinical impression. Adenosis and dense breasts may obscure an underlying neoplasm. False positive reports average 6 to 10%. Patient will receive a letter notifying them of these results.
== END 2025-06-06 01:54 ==
LOC: DI 01:35
PROVIDERS: PCP Nurse Practitioner Family; Visit Provider Nurse Practitioner Family
DX: Z12.31 Encounter for screening mammogram for malignant neoplasm of breast (principal); E53.8 Deficiency of other specified B group vitamins; R92.313 Mammographic fatty tissue density, bilateral breasts
CPT/HCPCS: 77063; 77067